=== PATIENT | female | born 1940 | race Caucasian/White ===

== ENCOUNTER 2024-01-11 10:03 | Outpatient (AMB) | payer MEDICARE, OTHER, SELFPAY ==
--- NOTE | 2024-01-11 10:21 | A.OFFPC_ITS ---
Vital Signs 01/11/24 10:38 01/11/24 11:36 Height 4 ft 7.12 in Weight 115 lb 6 oz BMI 26.7 BP 118/56 L 140/58 H Blood Pressure Location Lt brachial Lt brachial Position Sitting Sitting Respiration 16 Pulse 70 Pulse Source Pulse Oximeter Temp 98.6 F Temp Source Oral Pulse Oximetry (%) 95 Oxygen Delivery Method Room Air Intake Visit Reasons: Establish Care transfer from [facility] Allergies Penicillins [PENICILLINS] Allergy (Unknown, Unverified 04/09/20 19:53) SWELLING Medication List - Last Reconciled 01/11/24 by BORIS Abreu acetaminophen ER (Tylenol 8 Hour) 650 mg PO Q8H amlodipine 5 mg PO DAILY atorvastatin 40 mg PO BEDTIME calcium carbonate 600 mg PO DAILY carisoprodol 350 mg PO BID PRN cholecalciferol (vitamin D3) 50 mcg PO DAILY furosemide 20 mg PO BID furosemide mg PO mupirocin 2% 1 appl topical BID-TID nifedipine ER mg PO oxycodone 10 mg PO QID PRN oxycodone ER (OxyContin) 20 mg PO BID Tobacco use date assessed: 01/11/24 Fall risk assessment: No Falls in past year Last assessed Fall Risk: 01/11/24 Dental Screening Dental Screen Date: 01/11/24 Did you have a dental visit in the last 12 months?: No Did you have a dental problem in the last 6 months where you did not have access to dental care?: No Was dental information given to patient?: Patient has dentist HPI HPI Comments History of Present Illness Details This is an 82-year-old female with a past medical history of ischemic stroke and recurrent TIAs, peripheral vascular disease, chronic back pain on opiates, skin cancer and 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 She is here today with a friend, Mela. Her healthcare proxy, Marie, is on the phone. They are here to have forms filled out for the [facility]. She has a tentative mov e-in scheduled for mid January. When she is settled they would like orders for PT/OT. She ambulates with a walker, but today she is in a wheelchair. She is deconditioned. She has multiple chronic joint pains and osteoarthritis. She was hospitalized in October this year because of left knee pain. There was initial concern for failure of prosthesis/infection, but both were ruled out. She was evaluated by Orthopedics and prescribed a steroid Dosepak which helped with pain while she was taking it. Cardiovascular-followed by Dr. Yin. Patient hospitalized 06/17/2022 after presenting with syncope and EKG evidence of complete heart block with ventricular escape. She is status post dual-chamber pacemaker implantation. She had an echocardiogram that demonstrated reduced left ventricular systolic function (40-45%), akinetic mid and distal inferior septal, distal inferior and distal inferolateral and distal anteroseptal segments. She had a stress test in 09/12/2022. Peripheral vascular disease-chronic lower extremity edema. Followed by Dr. Medrano. Currently stable. She has a history of basal and squamous cell carcinoma. She is followed by [facility], Dr. Robert.. Her electronic video games servicer did not think it was a good idea to remove squamous cell lesions on her lower extremities because of skin atrophy and chronic venous insufficiency. Chronic pain is managed by Dr. Baugh. She has a history of multiple joint replacement surgeries. She has a compression fracture from an old injury. She is on opioids chronically. She was previously on gabapentin which was discontinued due to causing memory issues. She has carpal tunnel syndrome. She was tried on Lyrica but did not notice much of a difference on the medication, and it was discontinued. [facility] Medical History (Updated 01/11/24 @ 13:19 by BORIS Abreu) Coronary artery disease Osteoporosis PVD (peripheral vascular disease) PMR (polymyalgia rheumatica) Pacemaker Chronic neck pain Liver cyst Hyperlipidemia LDL goal <70 History of recurrent TIAs History of [place] (myocardial infarction) History of ischemic stroke History of anemia Compression fracture of spine Chronic pain syndrome Candidal intertrigo SCCA (squamous cell carcinoma) of skin BCC (basal cell carcinoma of skin) AV block, 3rd degree Surgical History (Updated 01/11/24 @ 11:55 by BORIS Abreu) History of elbow surgery History of bunionectomy S/p bilateral shoulder joint replacement History of left hip replacement History of bilateral knee replacement Social History Housing: [facility] Patient Tobacco Use Status: Never used Tobacco e-Cigarette/Vaping Use: Never Used Second Hand Smoke Exposure: Yes service: No Current occupational status: retired Cognitive needs: No Hearing needs: No Vision needs: No Questionnaire PHQ-9 Over the last 2 weeks, how often have you been bothered by any of the following problems? 1. Little interest or pleasure in doing things: not at all 2. Feeling down, depressed, or hopeless: not at all 3. Trouble falling or staying asleep, or sleeping too much: not at all 4. Feeling tired or having little energy: not at all 5. Poor appetite or overeating: not at all 6. Feeling bad about yourself - or that you are a failure or have let yourself or your family down: not at all 7. Trouble concentrating on things, such as reading the newspaper or watching television: not at all 8. Moving or speaking so slowly that other people could have noticed. Or the opposite - being so fidgety or restless that you have been moving around a lot more than usual: not at all 9. Thoughts that you would be better off or of hurting yourself in some way: not at all Total score: 0 Depression Screening Interpretation: Negative Depression Screening Done: Yes 83919 - PHQ-9 Billing: Yes Source: Developed by Drs. Cooper Oreilly, Alisia Armenta, Jose Juan Bustillo and colleagues, with an educational nella from [email or web address]. Thrive Questionnaire Date Thrive assessed: 01/11/24 I am a: Patient What is your living situation today?: I have a steady place to live Within the past 12 months, did the food you bought not last and you didn't have the money to get more?: Never true Within the past 12 months, did you worry whether your food would run out before you got money to buy more?: Never true Do you have trouble paying for medicines?: No Do you have trouble getting transportation to medical appointments?: No Do you have trouble paying your heating and electricity bill?: No Do you have trouble taking care of your child, family member or friend?: No Do you have trouble with day-to-day activities such as bathing, preparing meals, shopping, managing finances, etc.?: No Are you currently unemployed and looking for a job?: No Are you interested in more education?: No Please select the resources that you would like help with: None Currently or been in a relationship where the following occur: no concerns reported THRIVE Score: 0 AUDIT C Alcohol Use Questionnaire (AUDIT-C) 1. How often do you have a drink containing alcohol?: Never 3. How often do you have six or more drinks on one occasion?: Never Total Score: 0 HOLLI-7 AMB Questionnaire HOLLI-7 Date HOLLI - 7 assessed: 01/11/24 Feeling nervous, anxious, or on edge: 0 = Not at all Not being able to stop or control worryin = Not at all Worrying too much about different things: 0 = Not at all Trouble relaxin = Not at all Being so restless that it is hard to sit still: 0 = Not at all Becoming easily annoyed or irritable: 0 = Not at all Feeling afraid as if something awful might happen: 0 = Not at all Total HOLLI-7 score (0-4 normal; 5-9 mild; 10-14 moderate; 15-21 severe): 0 Source: Developed by Drs. Cooper Oreilly, Alisia Armenta, Jose Juan Bustillo and colleagues, with an educational nella from [email or web address]. HOLLI-7 Assessment Billing HOLLI-7 Assessment Tool: HOLLI-7 Assessment 26296 Review of Systems Const Details: Constitutional: No fever or chills. Neurologic: No memory problems or history of dementia Psychiatric: No depression or anxiety. No SI/HI. Physical exam (Primary Care) Vital Signs: Last Vital Signs Temp 98.6 F 01/11/24 10:38 Pulse 70 01/11/24 10:38 Resp 16 01/11/24 10:38 BP 118/56 L 01/11/24 10:38 Pulse Ox 95 01/11/24 10:38 Oxygen Delivery Method Room Air 01/11/24 10:38 BMI result Body Mass Index 32.6 Tobacco/Smoking Status: Tobacco use Status Tobacco use date assessed 01/11/24 01/11/24 10:44 Patient Tobacco Use Status Never used Tobacco 01/11/24 10:44 e-Cigarette/Vaping Use Never Used 01/11/24 10:44 PHQ-9: PHQ-9 Score PHQ-9: Total score 0 01/11/24 10:59 Depression Screening Interpretation: Negative Thrive Assessment: Date of Thrive Assessment Date Thrive assessed 01/11/24 01/11/24 10:59 Currently or been in a relationship where the following occur: no concerns reported Const Other: Constitutional: Alert, in no distress. Respiratory: Clear to auscultation. Cardiovascular: S1 S2 regular. Psychiatric: Normal mood and affect Assessment and Plan Assessment & Plan (1) PVD (peripheral vascular disease): Code(s): I73.9 - Peripheral vascular disease, unspecified (2) Hyperlipidemia LDL goal <70: Code(s): E78.5 - Hyperlipidemia, unspecified (3) Pacemaker: Code(s): Z95.0 - Presence of cardiac pacemaker (4) SCCA (squamous cell carcinoma) of skin: Code(s): C44.92 - Squamous cell carcinoma of skin, unspecified (5) Chronic pain syndrome: Code(s): G89.4 - Chronic pain syndrome (6) Coronary artery disease: Code(s): I25.10 - Atherosclerotic heart disease of [place] coronary artery without angina pectoris Qualifiers: Coronary Disease-Associated Artery/Lesion type: [place] artery [place] vs. transplanted heart: [place] heart Associated angina: without angina Qualified Code(s): I25.10 - Atherosclerotic heart disease of [place] coronary artery without angina pectoris (7) Osteoarthritis involving multiple joints on both sides of body: Code(s): M15.9 - Polyosteoarthritis, unspecified Plan In summary this is a pleasant 83-year-old female with a complex past medical history who presented to transfer from [facility] primary care. She is currently stable on her medications. She is followed closely by her specialists including Cardiology and vascular surgery. She will continue her current medications. Dermatology has not recommended removal of cancerous lesions on her lower extremities due to risk of complications because of her comorbidities. I completed the paperwork for the [facility] and retained a copy for the office today and provided the original to the patient. They will contact me for a referral for home PT/OT when she is settled there. She has a follow up appointment scheduled already in April with me. If any problems arise prior to that she will contact the office sooner for an appointment. Coding Level of Care Code Est Pt Level 5 (63162) Complex EM visit Add On G2211 Diagnoses PVD (peripheral vascular disease) I73.9 Hyperlipidemia LDL goal <70 E78.5 Pacemaker Z95.0 SCCA (squamous cell carcinoma) of skin C44.92 Chronic pain syndrome G89.4 Coronary artery disease involving [place] coronary artery of [place] heart without angina pectoris I25.10 Coronary Disease-Associated Artery/Lesion type: [place] artery [place] vs. transplanted heart: [place] heart Associated angina: without angina Osteoarthritis involving multiple joints on both sides of body M15.9 Additional Codes HOLLI-7 Assessment Billing - HOLLI-7 Assessment Tool: HOLLI-7 Assessment 28874 ([id number])
[2024-01-11 10:38] VITALS: BP 118/56; PULSE 70; RESP 16; TEMP 37; O2SAT 95; BMI 26.7
[2024-01-11 11:36] VITALS: BP 140/58
== END 2024-01-11 11:43 | disposition home or self-care (01) ==
PROVIDERS: PCP Physician Assistant Medical; Visit Provider Physician Assistant Medical
DX: E78.5 Hyperlipidemia, unspecified (principal); I73.9 Peripheral vascular disease, unspecified; Z95.0 Presence of cardiac pacemaker; C44.92 Squamous cell carcinoma of skin, unspecified; G89.4 Chronic pain syndrome; I25.10 Atherosclerotic heart disease of native coronary artery without angina pectoris; M15.9 Polyosteoarthritis, unspecified
CPT/HCPCS: 99215; G2211

== ENCOUNTER 2024-03-21 08:49 | Outpatient (AMB) | payer MEDICARE, OTHER, SELFPAY ==
--- NOTE | 2024-03-21 08:52 | MHC.PC.OV ---
Vital Signs 03/21/24 09:00 Height 4 ft 8.3 in Weight 112 lb 6 oz BMI 24.9 BP 118/72 Blood Pressure Location Lt brachial Position Sitting Respiration 14 Pulse 88 Pulse Source Pulse Oximeter Pulse Oximetry (%) 97 Oxygen Delivery Method Room Air Intake Visit Reasons: Pressure sore on buttocks & updated referral pt/ot Intake Note: patient is here for sore on buttocks and updated referrals. 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 She is here today with a friend, Mela. Her healthcare proxy, Marie, is on the phone for part of the visit. She has pressure ulcers on the right and left gluteal areas for the past 4 weeks. They are applying an OTC Zinc oxide. 03/15/2024 she was using a rope device to open her room door and got caught in it. It cut her right arm in two places[facility] but Marie is very well versed in Mrs. Hunt's care, and knew they would not be stitched due to poor skin integrity and nature of the wounds. She has been applying triple abx ointment and a xeroform dressing to each every other day, but they are starting to heal. She was previously followed by wound care for lower extremity wounds, but Marie says that it took them 6 months to heal, and they went through many types of dressings and never tried Xeroform which ended up working best. She [facility]. She provided the contact number. They will do OT/PT at [facility] for the patient. She is deconditioned. She is a fall risk. She has osteoarthritis of multiple sites. She fell a few weeks ago but had no major injuries. She is wheelchair-bound. She does not drive. Cardiovascular-followed by Dr. Yin. Patient hospitalized 06/17/2022 after presenting with syncope and EKG evidence of complete heart block with ventricular escape. She is status post dual-chamber pacemaker implantation. She had an echocardiogram that demonstrated reduced left ventricular systolic function (40-45%), akinetic mid and distal inferior septal, distal inferior and distal inferolateral and distal anteroseptal segments. She had a stress test in 09/12/2022. Peripheral vascular disease-chronic lower extremity edema. Followed by Dr. Medrano. Currently stable. She has a history of basal and squamous cell carcinoma. She is followed by [facility], Dr. Robert. Chronic pain is managed by Dr. Baugh. She has a history of multiple joint replacement surgeries. She has a compression fracture from an old injury. She is on opioids chronically. She was previously on gabapentin which was discontinued due to causing memory issues. She has carpal tunnel syndrome. She was tried on Lyrica but did not notice much of a difference on the medication, and it was discontinued. ROS: Constitutional: No fevers or chills Respiratory: No shortness of breath Cardiovascular: No chest pain Skin: see HPI Physical exam: Constitutional: Alert, in no distress. Head: Normocephalic. Neck: Supple, Full range of motion. No lymphadenopathy. Respiratory: Clear to auscultation. Cardiovascular: S1 S2 regular. No murmurs. Skin: 2.5 cm half stephenson shaped would with flap of avulsed skin in place on the right forearm (improved appearance from earlier pictures Mela showed me on her cell phone). Approximately 5.5 cm x 1.7 cm open wound on the right upper arm. Wounds are clean with no surrounding erythema, edema, calor or discharge. There is a stage I pressure ulcer on either side of the gluteal cleft. There are two small, shallow stage II areas within the ulcer on the right measuring approximately 1 cm. [facility] Medical History (Updated 03/22/24 @ 11:35 by BORIS Abreu) Physical deconditioning Osteoarthritis, multiple sites Pressure ulcers of skin of multiple topographic sites Risk for falls Coronary artery disease Osteoporosis PVD (peripheral vascular disease) PMR (polymyalgia rheumatica) Pacemaker Chronic neck pain Liver cyst Hyperlipidemia LDL goal <70 History of recurrent TIAs History of [place] (myocardial infarction) History of ischemic stroke History of anemia Compression fracture of spine Chronic pain syndrome Candidal intertrigo SCCA (squamous cell carcinoma) of skin BCC (basal cell carcinoma of skin) AV block, 3rd degree Surgical History (Updated 01/11/24 @ 11:55 by BORIS Abreu) History of elbow surgery History of bunionectomy S/p bilateral shoulder joint replacement History of left hip replacement History of bilateral knee replacement Social History Housing: [facility] Patient Tobacco Use Status: Never used Tobacco e-Cigarette/Vaping Use: Never Used Second Hand Smoke Exposure: Yes service: No Current occupational status: retired Cognitive needs: No Hearing needs: No Vision needs: No Questionnaire Thrive Questionnaire Date Thrive assessed: 01/11/24 HOLLI-7 AMB Questionnaire HOLLI-7 Date HOLLI - 7 assessed: 01/11/24 Source: Developed by Drs. Cooper Oreilly, Alisia Armenta, Jose Juan Bustillo and colleagues, with an educational nella from [email or web address]. Physical exam (Primary Care) Vital Signs: Last Vital Signs Pulse 88 03/21/24 09:00 Resp 14 03/21/24 09:00 BP 118/72 03/21/24 09:00 Pulse Ox 97 03/21/24 09:00 Oxygen Delivery Method Room Air 03/21/24 09:00 BMI result Body Mass Index 24.9 Tobacco/Smoking Status: Tobacco use Status Tobacco use date assessed 01/11/24 03/21/24 08:53 Patient Tobacco Use Status Never used Tobacco 03/21/24 08:53 e-Cigarette/Vaping Use Never Used 03/21/24 08:53 Thrive Assessment: Date of Thrive Assessment Date Thrive assessed 01/11/24 03/21/24 08:53 Assessment and Plan Assessment & Plan (1) Pressure ulcers of skin of multiple topographic sites: Code(s): L89.90 - Pressure ulcer of unspecified site, unspecified stage (2) Wound of right upper extremity: Code(s): S41.101A - Unspecified open wound of right upper arm, initial encounter Qualifiers: Encounter type: initial encounter Qualified Code(s): S41.101A - Unspecified open wound of right upper arm, initial encounter (3) Risk for falls: Code(s): Z91.81 - History of falling (4) Osteoarthritis, multiple sites: Code(s): M15.9 - Polyosteoarthritis, unspecified Qualifiers: Osteoarthritis type: primary Qualified Code(s): M15.0 - Primary generalized (osteo)arthritis (5) Physical deconditioning: Code(s): R53.81 - Other malaise Plan We discussed pressure ulcer treatment and prevention. She has a pressure cushion for her wheelchair. They will purchase one for her scooter, too. She is at the [facility], and they have staff check on her during the night and will request a position change since she sleeps supine. Keep ulcers clean. Keep covered with Rx Zinc oxide prescribed today. Offered referral for wound care-declined today, but accepted referral be made so if they are worsening/not healing Marie can call to schedule this. Declines wound care for UE wounds which are healing. Marie is very competent with wound dressings. Continue thin layer of bacitracin and Xeroform then gauze. Changing every other day. Monitor for signs and symptoms of infection which are reviewed today. Discussed symptoms warranting ER evaluation. Referred for PT/OT. Follow up in 3 weeks for wound checks. Orders: Referrals Wound Care Referral L89.90 - Pressure ulcer of unspecified site, unspecified stage, S41.109A - Unspecified open wound of unspecified upper arm, initial encounter [facility] Referral M15.9 - Polyosteoarthritis, unspecified, M48.50XA - Collapsed vertebra, not elsewhere classified, site unspecified, initial encounter for fracture, M81.0 - Age-related osteoporosis without current pathological fracture, R53.81 - Other malaise, Z91.81 - History of falling Medications: New zinc oxide 25% 1 appl topical BID-TID PRN 2,500 grams 2RF skin irritation Coding Level of Care Code Est Pt Level 5 (19219) Complex EM visit Add On G2211 Diagnoses Pressure ulcers of skin of multiple topographic sites L89.90 Wound of right upper extremity, initial encounter S41.101A Encounter type: initial encounter Risk for falls Z91.81 Primary osteoarthritis involving multiple joints M15.0 Osteoarthritis type: primary Physical deconditioning R53.81 Time Spent (min) 55 Comment direct patient care and chart completion
[2024-03-21 09:00] VITALS: BP 118/72; PULSE 88; RESP 14; O2SAT 97; BMI 24.9
== END 2024-03-21 10:26 | disposition home or self-care (01) ==
PROVIDERS: PCP Physician Assistant Medical; Visit Provider Physician Assistant Medical
DX: S41.101A Unspecified open wound of right upper arm, initial encounter (principal); L89.90 Pressure ulcer of unspecified site, unspecified stage; Z91.81 History of falling; M15.0 Primary generalized (osteo)arthritis; R53.81 Other malaise
CPT/HCPCS: 99215; G2211

== ENCOUNTER 2024-06-06 14:05 | Outpatient (AMB) | payer MEDICARE, OTHER, SELFPAY ==
--- NOTE | 2024-06-06 14:15 | A.OFFPC_ITS ---
Vital Signs 06/06/24 14:20 Height 4 ft 7.31 in Weight 114 lb 2 oz BMI 26.2 BP 112/60 Blood Pressure Location Lt brachial Position Sitting Pulse 93 Pulse Source Pulse Oximeter Temp 98.7 F Temp Source Oral Pulse Oximetry (%) 97 Oxygen Delivery Method Room Air Intake Visit Reasons: est care Intake Note: Follow up. Daughter in law is bringing medication list. 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 She is here today with a friend, Mela and healthcare proxy, Marie. Marie messaged earlier this week on the portal because the patient developed bilateral lower extremity redness, weeping and open sores. She has taken 4 doses of Bactrim. Marie is wrapping them with antibiotic ointment to open areas, xeroform and gauze. She changes the dressings every two days. Patient says itching is gone and legs are 70% better. Denies fevers and chills. She is compliant with Lasix. She is elevating her legs. She has a longstanding history of PVD and lower extremity edema. She is followed by Dr. Medrano. Marie says pressure ulcers on her buttocks have since healed. Using foam padding dressing and zinc oxide. She has a small red spot under her bra strap. She will start using foam dressing and zinc oxide. They continue with positional changes throughout the day and staff come into her room at night. Chronic pain is managed by Dr. Baugh, and they tell me he is in the process of ordering a hospital bed. She has a history of multiple joint replacement surgeries. She has a compression fracture from an old injury. She is on opioids chronically. She was previously on gabapentin which was discontinued due to causing memory issues. She has carpal tunnel syndrome. She was tried on Lyrica but did not notice much of a difference on the medication, and it was discontinued. She endorses tingling in both of her hands that is worse when she first wakes up. They got a note from her insurance carrier that Oxycontin will not be covered come July. The plan is to switch her to Dilaudid, and they are all concerned about potential side effects to this medication. She is also on Oxycodone 10 mg every 4-6 hours for pain. They asked if she should receive the RSV vaccine, and I do recommend this. ROS: Constitutional: No fevers or chills Respiratory: No shortness of breath Cardiovascular: No chest pain Skin: see HPI Physical exam: Constitutional: Alert, in no distress. Head: Normocephalic. Neck: Supple, Full range of motion. No lymphadenopathy. Respiratory: Clear to auscultation. Cardiovascular: S1 S2 regular. No murmurs. Skin: Venous stasis changes noted on bilateral lower extremities. There are multiple shallow sores with the largest ~1.5 cm and there are waxy plaques and flaking skin and erythema of both lower legs. The right leg appears worse than the left in terms of erythema. Bilateral 2+ lower extremity edema. No visible sores on the gluteal areas. Stage I 2 cm ulcer on the midline spine below the bra line. [facility] Medical History (Updated 06/07/24 @ 12:55 by BORIS Abreu) Bilateral lower leg cellulitis Paresthesias Physical deconditioning Osteoarthritis, multiple sites Pressure ulcers of skin of multiple topographic sites Risk for falls Coronary artery disease Osteoporosis PVD (peripheral vascular disease) PMR (polymyalgia rheumatica) Pacemaker Chronic neck pain Liver cyst Hyperlipidemia LDL goal <70 History of recurrent TIAs History of [place] (myocardial infarction) History of ischemic stroke History of anemia Compression fracture of spine Chronic pain syndrome Candidal intertrigo SCCA (squamous cell carcinoma) of skin BCC (basal cell carcinoma of skin) AV block, 3rd degree Surgical History (Updated 01/11/24 @ 11:55 by BORIS Abreu) History of elbow surgery History of bunionectomy S/p bilateral shoulder joint replacement History of left hip replacement History of bilateral knee replacement Social History Housing: [facility] Patient Tobacco Use Status: Never used Tobacco e-Cigarette/Vaping Use: Never Used Second Hand Smoke Exposure: Yes service: No Current occupational status: retired Cognitive needs: No Hearing needs: No Vision needs: No Questionnaire PHQ-9 Over the last 2 weeks, how often have you been bothered by any of the following problems? 2. Feeling down, depressed, or hopeless: not at all Source: Developed by Drs. Cooper Oreilly, Alisia Armenta, Jose Juan Bustillo and colleagues, with an educational nella from [employer]. Thrive Questionnaire Date Thrive assessed: 01/11/24 I am a: Patient What is your living situation today?: I choose not to answer this question Within the past 12 months, did the food you bought not last and you didn't have the money to get more?: I choose not to answer this question Within the past 12 months, did you worry whether your food would run out before you got money to buy more?: I choose not to answer this question Do you have trouble paying for medicines?: I choose not to answer this question Do you have trouble getting transportation to medical appointments?: I choose not to answer this question Do you have trouble paying your heating and electricity bill?: I choose not to answer this question Do you have trouble taking care of your child, family member or friend?: I choose not to answer this question Do you have trouble with day-to-day activities such as bathing, preparing meals, shopping, managing finances, etc.?: I choose not to answer this question Are you currently unemployed and looking for a job?: I choose not to answer this question Are you interested in more education?: I choose not to answer this question Please select the resources that you would like help with: None Currently or been in a relationship where the following occur: No concerns reported THRIVE Score: 0 AUDIT C Alcohol Use Questionnaire (AUDIT-C) 1. How often do you have a drink containing alcohol?: Never Total Score: 0 HOLLI-7 AMB Questionnaire HOLLI-7 Date HOLLI - 7 assessed: 01/11/24 Feeling nervous, anxious, or on edge: 0 = Not at all Not being able to stop or control worryin = Not at all Worrying too much about different things: 0 = Not at all Trouble relaxin = Not at all Being so restless that it is hard to sit still: 0 = Not at all Becoming easily annoyed or irritable: 0 = Not at all Feeling afraid as if something awful might happen: 0 = Not at all Total HOLLI-7 score (0-4 normal; 5-9 mild; 10-14 moderate; 15-21 severe): 0 Source: Developed by Drs. Cooper Oreilly, Alisia Armenta, Jose Juan Bustillo and colleagues, with an educational nella from [employer]. Physical exam (Primary Care) Vital Signs: Last Vital Signs Temp 98.7 F 06/06/24 14:20 Pulse 93 06/06/24 14:20 BP 112/60 06/06/24 14:20 Pulse Ox 97 06/06/24 14:20 Oxygen Delivery Method Room Air 06/06/24 14:20 BMI result Body Mass Index 26.2 Tobacco/Smoking Status: Tobacco use Status Tobacco use date assessed 01/11/24 06/06/24 14:19 Patient Tobacco Use Status Never used Tobacco 06/06/24 14:19 e-Cigarette/Vaping Use Never Used 06/06/24 14:19 Thrive Assessment: Date of Thrive Assessment Date Thrive assessed 01/11/24 06/06/24 14:19 Currently or been in a relationship where the following occur: No concerns reported Coding Level of Care Code Est Pt Level 5 (11101) Complex EM visit Add On G2211 Diagnoses Bilateral lower leg cellulitis L03.116; L03.115 PVD (peripheral vascular disease) I73.9 Primary osteoarthritis involving multiple joints M15.0 Osteoarthritis type: primary Time Spent (min) 56 Comment direct patient care, completing documentation Assessment & Plan Assessment & Plan (1) Bilateral lower leg cellulitis: Code(s): L03.116 - Cellulitis of left lower limb; L03.115 - Cellulitis of right lower limb Category: Medical (2) PVD (peripheral vascular disease): Code(s): I73.9 - Peripheral vascular disease, unspecified Category: Medical (3) Osteoarthritis, multiple sites: Code(s): M15.9 - Polyosteoarthritis, unspecified Category: Medical Qualifiers: Osteoarthritis type: primary Qualified Code(s): M15.0 - Primary generalized (osteo)arthritis Plan Patient afebrile today. Appears nontoxic. Will check CBC. Interval improvement on Bactrim. Patient instructed to finish full course. Continue dressing changes with antibiotic ointment, xeroform, gauze and coban wrap. Declines referral to wound care. 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 Continue to elevate legs. Conitnxavier Lasix. Warning signs warranting ER evaluation reviewed. It is difficult to her to come for appointments due to chronic pain and deconditioning so they will send updated photos over the patient portal on Monday. Paresthesias in hands likely due to CTS or cervical radiculopathy, but I will check labs for underlying issues. It is medically necessary for the patient to remain on her current regimen for chronic pain. I think it would pose significant and unnecessary risk to switch the patient off of this given her age, fall risk and comorbidities. I will try to submit a letter of appeal to her insurnace. Orders: Orders Comprehensive Met. Panel 06/06/24 R20.2 - Paresthesia of skin Vitamin B12 and Folate 06/06/24 R20.2 - Paresthesia of skin Hemoglobin A1c 06/06/24 E11.9 - Type 2 diabetes mellitus without complications, R20.2 - Paresthesia of skin Complete Blood Count no Diff 06/06/24 R20.2 - Paresthesia of skin TSH reflex Free T4 06/06/24 R20.2 - Paresthesia of skin Medications: New elastic bandage (Coban Self-Adherent Wrap) As directed 18 ea 4RF bismuth tribrom-petrolatum,wh 5 X 9 (Xeroform) As directed 72 ea 2RF gauze bandage (Rolled Gauze) As directed 4 ea 3RF
[2024-06-06 14:20] VITALS: BP 112/60; PULSE 93; TEMP 37.1; O2SAT 97; BMI 26.2
== END 2024-06-06 16:07 | disposition home or self-care (01) ==
PROVIDERS: PCP Physician Assistant Medical; Visit Provider Physician Assistant Medical
DX: L03.116 Cellulitis of left lower limb (principal); L03.115 Cellulitis of right lower limb; I73.9 Peripheral vascular disease, unspecified; M15.0 Primary generalized (osteo)arthritis

== ENCOUNTER → 2024-06-06 14:05 | Outpatient (BNVA) | payer MEDICARE, OTHER, SELFPAY | PROVIDERS: PCP Physician Assistant Medical; Visit Provider Physician Assistant Medical ==

== ENCOUNTER 2024-06-06 15:54 | Outpatient (REF) | payer MEDICARE, OTHER, SELFPAY ==
[2024-06-06 17:59] LABS: Estimated Average Glucose 108 mg/dL; Hematocrit 37.4 % (37.0-47.0); Hemoglobin 11.8 g/dl (12.0-16.0); Hemoglobin A1C 109.7972 umol/L; Hemoglobin A1c % 5.4 % (<6.0); Mean Corpuscular HGB Conc 31.6 g/dl (31.0-35.0); Mean Corpuscular Hemoglobin 27.4 pg (27.0-33.0); Mean Corpuscular Volume 86.8 fL (80.0-98.0); Mean Platelet Volume 11.4 fL (9.4-12.3); Platelet Count 232 X10*3/uL (160-400); Red Blood Count 4.31 X10*6/uL (4.20-5.50); Red Cell Distribution Width 14.9 % (11.0-16.0); White Blood Count 9.1 X10*3/uL (4.8-10.8)
[2024-06-06 18:48] LABS: Alanine Aminotransferase 15 U/L (0-31); Alkaline Phosphatase 98 U/L (39-117); Anion Gap 15 (12-20); Aspartate Amino Transferase 37 U/L (5-31); Bilirubin Total 0.2 mg/dL (0.0-1.0); Blood Urea Nitrogen 13 mg/dL (9-16); Calcium 9.2 mg/dL (8.4-10.2); Carbon Dioxide 30 mmol/L (22-29); Chloride 100 mmol/L (96-108); Estimated Glomerular Filt Rate > 60; Glucose Random 95 mg/dL (60-115); Potassium 4.1 mmol/L (3.3-5.1); Sodium 141 mmol/L (135-145); Total Protein 7.3 g/dL (6.5-8.0)
[2024-06-06 18:50] LABS: Folate 11.8 ng/mL (> or = 4.0); Vitamin B12 422 pg/mL (200-900)
[2024-06-06 18:57] LABS: TSH reflex Free T4 3.28 uIU/mL (0.32-4.0)
== END 2024-06-06 15:55 | disposition home or self-care (01) ==
LOC: HO.WFDLDS 15:54
PROVIDERS: Visit Provider Physician Assistant Medical
DX: L03.116 Cellulitis of left lower limb (principal); L03.115 Cellulitis of right lower limb; I73.9 Peripheral vascular disease, unspecified; M15.0 Primary generalized (osteo)arthritis; E11.9 Type 2 diabetes mellitus without complications; R20.2 Paresthesia of skin
CPT/HCPCS: 36415; 80053; 82607; 82746; 83036; 84443; 85027; 99212

== ENCOUNTER 2024-08-05 11:54 | Outpatient (AMB) | payer MEDICARE, OTHER, SELFPAY ==
--- NOTE | 2024-08-05 12:16 | A.OFFPC_ITS ---
Intake Visit Reasons: fernandes [facility]df[facility] Intake Note: Hospital follow up Cardiac Cath Technician Required: No Allergies Penicillins [PENICILLINS] Allergy (Unknown, Verified 08/05/24 12:16) SWELLING doxycycline Adverse Reaction (Intermediate, Verified 08/05/24 12:16) Vomiting Tobacco use date assessed: 01/11/24 Dental Screening Dental Screen Date: 01/11/24 [facility] Medical History (Updated 06/07/24 @ 12:55 by BORIS Abreu) Bilateral lower leg cellulitis Paresthesias Physical deconditioning Osteoarthritis, multiple sites Pressure ulcers of skin of multiple topographic sites Risk for falls Coronary artery disease Osteoporosis PVD (peripheral vascular disease) PMR (polymyalgia rheumatica) Pacemaker Chronic neck pain Liver cyst Hyperlipidemia LDL goal <70 History of recurrent TIAs History of [place] (myocardial infarction) History of ischemic stroke History of anemia Compression fracture of spine Chronic pain syndrome Candidal intertrigo SCCA (squamous cell carcinoma) of skin BCC (basal cell carcinoma of skin) AV block, 3rd degree Surgical History (Updated 01/11/24 @ 11:55 by BORIS Abreu) History of elbow surgery History of bunionectomy S/p bilateral shoulder joint replacement History of left hip replacement History of bilateral knee replacement Social History [facility] Patient Tobacco Use Status: Never used Tobacco e-Cigarette/Vaping Use: Never Used Second Hand Smoke Exposure: Yes service: No Current occupational status: retired Cognitive needs: No Hearing needs: No Vision needs: No Questionnaire Thrive Questionnaire Date Thrive assessed: 08/02/24 I am a: Parent/Caregiver What is your living situation today?: I have a steady place to live Within the past 12 months, did the food you bought not last and you didn't have the money to get more?: I choose not to answer this question Within the past 12 months, did you worry whether your food would run out before you got money to buy more?: I choose not to answer this question Do you have trouble paying for medicines?: I choose not to answer this question Do you have trouble getting transportation to medical appointments?: I choose not to answer this question Do you have trouble paying your heating and electricity bill?: I choose not to answer this question Do you have trouble taking care of your child, family member or friend?: I choose not to answer this question Do you have trouble with day-to-day activities such as bathing, preparing meals, shopping, managing finances, etc.?: I choose not to answer this question Are you currently unemployed and looking for a job?: I choose not to answer this question Are you interested in more education?: I choose not to answer this question Please select the resources that you would like help with: None Currently or been in a relationship where the following occur: I choose not to answer THRIVE Score: 0 AUDIT C Alcohol Use Questionnaire (AUDIT-C) 1. How often do you have a drink containing alcohol?: Monthly or less 2. How many drinks containing alcohol do you have on a typical day when you are drinking?: 1 or 2 3. How often do you have six or more drinks on one occasion?: Never Total Score: 1 HOLLI-7 AMB Questionnaire HOLLI-7 Date HOLLI - 7 assessed: 01/11/24 Feeling nervous, anxious, or on edge: 0 = Not at all Not being able to stop or control worryin = Not at all Worrying too much about different things: 0 = Not at all Trouble relaxin = Not at all Being so restless that it is hard to sit still: 0 = Not at all Becoming easily annoyed or irritable: 0 = Not at all Feeling afraid as if something awful might happen: 0 = Not at all Total HOLLI-7 score (0-4 normal; 5-9 mild; 10-14 moderate; 15-21 severe): 0 Source: Developed by Drs. Cooper Oreilly, Alisia Armenta, Jose Juan Bustillo and colleagues, with an educational nella from [employer]. Physical exam (Primary Care) Tobacco/Smoking Status: Tobacco use Status Tobacco use date assessed 01/11/24 06/06/24 14:19 Patient Tobacco Use Status Never used Tobacco 06/06/24 14:19 e-Cigarette/Vaping Use Never Used 06/06/24 14:19 Thrive Assessment: Date of Thrive Assessment Date Thrive assessed 08/02/24 08/02/24 16:03 Currently or been in a relationship where the following occur: I choose not to answer Coding
--- NOTE | 2024-08-05 12:21 | MHC.PC.OV ---
Vital Signs 08/05/24 12:36 Height 4 ft 7.31 in Weight 110 lb 6 oz BMI 25.4 BP 106/54 L Blood Pressure Location Rt brachial Position Sitting Pulse 82 Pulse Source Pulse Oximeter Pulse Oximetry (%) 96 Oxygen Delivery Method Room Air Intake Visit Reasons: fernandes hdfu Intake Note: Hospital follow up Allergies Penicillins [PENICILLINS] Allergy (Unknown, Verified 08/05/24 12:34) SWELLING doxycycline Adverse Reaction (Intermediate, Verified 08/05/24 12:34) Vomiting Tobacco use date assessed: 01/11/24 Dental Screening Dental Screen Date: 01/11/24 HPI HPI Comments History of Present Illness Details This is an 84-year-old female with a past medical history of ischemic stroke and recurrent TIAs, peripheral vascular disease, chronic back pain on opiates, skin cancer and 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 She is here with her healthcare proxy, Marie. Hospital discharge summary and notes not available to me today. I did review the emergency department note from [facility] dated 07/13/2024. The patient presented after a fall. She had had twinges of chest pain for a couple of days before but no chest discomfort or pain at the time of presentation. It was reported she was trying to put her shoe on and lost her balance and fell. She was transferred to [facility] for concern of NSTEMI. She was down for about 2 hours before someone in the assisted living found her. She was not in reach of her phone or the line she can pull by her bedside for help. Troponin was elevated at 428. Initial workup found no acute intracranial abnormality or fractures. CK was not significantly elevated. They are unclear today about whether or not she did have an NSTEMI. She was discharged to [place] and is back at her assisted living now. They have an appointment on 09/03/2023 with Cardiology, Anuel Almazan. Dr. Heard is her restaurant associate. Marie mentions that she had a CT scan that showed an area in her lower spine that ?lit up. ? She has chronic lower back issues and a compression fracture. She has had multiple injections in her lower back. She said they discussed getting an MRI, but the MRI machine at [place] was not compatible with her pacemaker. Marie tells me that recently saw her sewer separation designer. For her lower extremity dermatitis and recurrent cellulitis they advised using triamcinolone when legs get itchy or inflamed. She has required antibiotics to treat cellulitis, and for the past 2 days legs have looked red again. Marie is requesting antibiotics. She does the dressing changes. She elevates her legs. She also has VNA services right now. No fevers or chills. She has a longstanding history of PVD and lower extremity edema. She is followed by Dr. Medrano. She has chronic pressure ulcers on her buttocks that are treated with foam padding and zinc oxide. She is very frail and bony. She was in a hospital bed with an air mattress during hospitalization which was extremely beneficial, and they are requesting we start the process to get 1 from the insurance. She also needs orders for speech therapy and an incentive spirometer. Due to frailty and chronic medical conditions she has a soft voice and difficulty getting her words out sometimes. She is easily fatigued when talking. Chronic pain is managed by Dr. Baugh who also recommended a hospital bed. She has a history of multiple joint replacement surgeries. She has a compression fracture from an old injury. She is on opioids chronically. She was previously on gabapentin which was discontinued due to causing memory issues. She has carpal tunnel syndrome. She was tried on Lyrica but did not notice much of a difference on the medication, and it was discontinued. I wrote her a letter of appeal to her insurance company because they were going to stop covering her OxyContin, and they have continued to cover it. She is also on Oxycodone 10 mg every 4-6 hours for pain. Marie was asking if her dose of atorvastatin should be increased. She does not have a recent lipid profile with us here. We will send the order to [facility] to do a home draw. She also needs orders for the Xeroform 1 x 8, 3 x 3 and 4 by for silicone foam dressings, Eucerin advanced healing and incentive spirometer sent to [facility]. ROS: Constitutional: +weight loss with hospitalization, but she gained 5 lb back. No fevers or chills. Respiratory: No cough. Cardiovascular: No chest pain or palpitations. Chronic lower extremity edema. Gastrointestinal: No nausea, vomiting or abdominal pain Genitourinary: No dysuria, hematuria, urinary frequency. Neurologic: No headache, dizziness, syncope Musculoskeletal: chronic pain Skin: see HPI Physical exam: Constitutional: Alert, in no distress. In wheelchair. Head: Normocephalic. Neck: Supple, Full range of motion. No lymphadenopathy. Respiratory: Clear to auscultation. Cardiovascular: S1 S2 regular. No murmurs. Skin: Venous stasis changes noted on bilateral lower extremities. There are 2 small fissures on the anterior right camejo. There is no discharge from the fissures. There are waxy plaques and flaking skin and erythema of both lower legs. Erythema is most notable on the right lower leg near the ankle. Bilateral 2+ lower extremity edema. [facility] Medical History (Updated 08/06/24 @ 12:25 by BORIS Abreu) Fall Hospital discharge follow-up Bilateral lower leg cellulitis Paresthesias Physical deconditioning Osteoarthritis, multiple sites Pressure ulcers of skin of multiple topographic sites Risk for falls Coronary artery disease Osteoporosis PVD (peripheral vascular disease) PMR (polymyalgia rheumatica) Pacemaker Chronic neck pain Liver cyst Hyperlipidemia LDL goal <70 History of recurrent TIAs History of FL (myocardial infarction) History of ischemic stroke History of anemia Compression fracture of spine Chronic pain syndrome Candidal intertrigo SCCA (squamous cell carcinoma) of skin BCC (basal cell carcinoma of skin) AV block, 3rd degree Surgical History (Updated 01/11/24 @ 11:55 by BORIS Abreu) History of elbow surgery History of bunionectomy S/p bilateral shoulder joint replacement History of left hip replacement History of bilateral knee replacement Social History [facility] Patient Tobacco Use Status: Never used Tobacco e-Cigarette/Vaping Use: Never Used Second Hand Smoke Exposure: Yes service: No Current occupational status: retired Cognitive needs: No Hearing needs: No Vision needs: No Questionnaire Thrive Questionnaire Date Thrive assessed: 08/02/24 I am a: Parent/Caregiver What is your living situation today?: I have a steady place to live Within the past 12 months, did the food you bought not last and you didn't have the money to get more?: I choose not to answer this question Within the past 12 months, did you worry whether your food would run out before you got money to buy more?: I choose not to answer this question Do you have trouble paying for medicines?: I choose not to answer this question Do you have trouble getting transportation to medical appointments?: I choose not to answer this question Do you have trouble paying your heating and electricity bill?: I choose not to answer this question Do you have trouble taking care of your child, family member or friend?: I choose not to answer this question Do you have trouble with day-to-day activities such as bathing, preparing meals, shopping, managing finances, etc.?: I choose not to answer this question Are you currently unemployed and looking for a job?: I choose not to answer this question Are you interested in more education?: I choose not to answer this question Please select the resources that you would like help with: None Currently or been in a relationship where the following occur: I choose not to answer THRIVE Score: 0 AUDIT C Alcohol Use Questionnaire (AUDIT-C) 1. How often do you have a drink containing alcohol?: Monthly or less 2. How many drinks containing alcohol do you have on a typical day when you are drinking?: 1 or 2 3. How often do you have six or more drinks on one occasion?: Never Total Score: 1 HOLLI-7 AMB Questionnaire HOLLI-7 Date HOLLI - 7 assessed: 01/11/24 Feeling nervous, anxious, or on edge: 0 = Not at all Not being able to stop or control worryin = Not at all Worrying too much about different things: 0 = Not at all Trouble relaxin = Not at all Being so restless that it is hard to sit still: 0 = Not at all Becoming easily annoyed or irritable: 0 = Not at all Feeling afraid as if something awful might happen: 0 = Not at all Total HOLLI-7 score (0-4 normal; 5-9 mild; 10-14 moderate; 15-21 severe): 0 Source: Developed by Drs. Cooper Oreilly, Alisia Armenta, Jose Juan Bustillo and colleagues, with an educational nella from [employer]. Physical exam (Primary Care) Vital Signs: Last Vital Signs Pulse 82 08/05/24 12:36 BP 106/54 L 08/05/24 12:36 Pulse Ox 96 08/05/24 12:36 Oxygen Delivery Method Room Air 08/05/24 12:36 BMI result Body Mass Index 25.4 Tobacco/Smoking Status: Tobacco use Status Tobacco use date assessed 01/11/24 08/05/24 12:32 Patient Tobacco Use Status Never used Tobacco 08/05/24 12:32 e-Cigarette/Vaping Use Never Used 08/05/24 12:32 Thrive Assessment: Date of Thrive Assessment Date Thrive assessed 08/02/24 08/05/24 12:32 Currently or been in a relationship where the following occur: I choose not to answer Coding Level of Care Code Est Pt Level 5 (81807) Complex EM visit Add On G2211 Diagnoses Hospital discharge follow-up Z09 Fall W19.XXXA Bilateral lower leg cellulitis L03.116; L03.115 Primary osteoarthritis involving multiple joints M15.0 Osteoarthritis type: primary Pressure ulcers of skin of multiple topographic sites L89.90 Coronary artery disease involving [place] coronary artery of [place] heart without angina pectoris I25.10 Coronary Disease-Associated Artery/Lesion type: [place] artery [place] vs. transplanted heart: [place] heart Associated angina: without angina PVD (peripheral vascular disease) I73.9 Hyperlipidemia LDL goal <70 E78.5 Time Spent (min) 70 Comment Chart review, completing documentation, direct patient care, coordinating care Assessment & Plan Assessment & Plan (1) Hospital discharge follow-up: Code(s): Z09 - Encounter for follow-up examination after completed treatment for conditions other than malignant neoplasm Category: Medical (2) Fall: Code(s): W19.XXXA - Unspecified fall, initial encounter Category: Medical (3) Bilateral lower leg cellulitis: Code(s): L03.116 - Cellulitis of left lower limb; L03.115 - Cellulitis of right lower limb Category: Medical (4) Osteoarthritis, multiple sites: Code(s): M15.9 - Polyosteoarthritis, unspecified Category: Medical Qualifiers: Osteoarthritis type: primary Qualified Code(s): M15.0 - Primary generalized (osteo)arthritis (5) Pressure ulcers of skin of multiple topographic sites: Code(s): L89.90 - Pressure ulcer of unspecified site, unspecified stage Category: Medical (6) Coronary artery disease: Code(s): I25.10 - Atherosclerotic heart disease of [place] coronary artery without angina pectoris Category: Medical Qualifiers: Coronary Disease-Associated Artery/Lesion type: [place] artery [place] vs. transplanted heart: [place] heart Associated angina: without angina Qualified Code(s): I25.10 - Atherosclerotic heart disease of [place] coronary artery without angina pectoris (7) PVD (peripheral vascular disease): Code(s): I73.9 - Peripheral vascular disease, unspecified Category: Medical (8) Hyperlipidemia LDL goal <70: Code(s): E78.5 - Hyperlipidemia, unspecified Category: Medical Plan Patient is status post hospital discharge and rehab after a mechanical fall and question of NSTEMI. She is at her baseline today other than recurrent cellulitis secondary to chronic stasis dermatitis. She is followed by Dermatology and vascular. They will apply the triamcinolone ointment per Dermatology, and I sent a 14 day course of cephalexin since short courses of antibiotics have not adequately treated infection in the past. Side effects reviewed. She will have a probiotic with this and take it with food. Warning signs warranting ER evaluation reviewed. She has follow up scheduled with Cardiology. Marie will contact them to see if she needs to be seen sooner, but she believes the appointment on September 03 is the hospital follow up appointment. I requested the records from her hospitalization so I can review all of the diagnostics and discharge summary. I would like to see the CT scan of the lower back and we will order a follow up MRI if appropriate. May consult her distributing clerk about this finding. A hospital bed with air mattress is medically necessary given frailty, ongoing pressure ulcers and severe chronic pain. Orders submitted to DME. Submit orders for PT, OT, speech. Incentive spirometer sent to DME supplier. Wound care supplies will be sent to [facility]. Check lipid profile-[facility] we will draw at home. She has a follow up scheduled with me. Orders: Orders Lipid Panel Today E78.5 - Hyperlipidemia, unspecified Referrals [facility]Hospice Referral L89.90 - Pressure ulcer of unspecified site, unspecified stage, M15.0 - Primary generalized (osteo)arthritis, M48.50XA - Collapsed vertebra, not elsewhere classified, site unspecified, initial encounter for fracture, W19.XXXA - Unspecified fall, initial encounter Medications: New cephalexin 500 mg PO Q8H 14 days 42 caps 0RF hospital bed As directed 1 ea 0RF L89.90 - Pressure ulcer of unspecified site, unspecified stage, M15.0 - Primary generalized (osteo)arthritis, R53.81 - Other malaise, Z91.81 - History of falling silicone,dressing-foam bandage 3 X 3 As directed 10 ea 5RF emollient combination no.119 (Eucerin Advanced Repair topical cream) topically; apply to lower legs twice daily. 454 grams 5RF bismuth tribrom-petrolatum,wh 1 X 8 (Xeroform Petrolatum Dressing) As directed 400 ea 5RF silicone,dressing-foam bandage 4 X 4 As directed 120 ea 5RF miscellaneous medical supply as directed 1 ea 0RF
[2024-08-05 12:36] VITALS: BP 106/54; PULSE 82; O2SAT 96; BMI 25.4
== END 2024-08-05 13:48 | disposition home or self-care (01) ==
PROVIDERS: PCP Physician Assistant Medical; Visit Provider Physician Assistant Medical
DX: L03.116 Cellulitis of left lower limb (principal); L03.115 Cellulitis of right lower limb; Z09 Encounter for follow-up examination after completed treatment for conditions other than malignant neoplasm; I73.9 Peripheral vascular disease, unspecified; W19.XXXA Unspecified fall, initial encounter; M15.0 Primary generalized (osteo)arthritis; L89.90 Pressure ulcer of unspecified site, unspecified stage; I25.10 Atherosclerotic heart disease of native coronary artery without angina pectoris; E78.5 Hyperlipidemia, unspecified

== ENCOUNTER → 2024-08-05 11:54 | Outpatient (BNVA) | payer MEDICARE, OTHER, SELFPAY | PROVIDERS: PCP Physician Assistant Medical; Visit Provider Physician Assistant Medical | DX: Z09 Encounter for follow-up examination after completed treatment for conditions other than malignant neoplasm (principal); L03.116 Cellulitis of left lower limb; L03.115 Cellulitis of right lower limb; M15.0 Primary generalized (osteo)arthritis; L98.419 Non-pressure chronic ulcer of buttock with unspecified severity; I25.10 Atherosclerotic heart disease of native coronary artery without angina pectoris; I73.9 Peripheral vascular disease, unspecified; E78.5 Hyperlipidemia, unspecified; G89.29 Other chronic pain; M54.9 Dorsalgia, unspecified; Z86.73 Personal history of transient ischemic attack (TIA), and cerebral infarction without residual deficits; Z79.891 Long term (current) use of opiate analgesic; Z91.81 History of falling | CPT/HCPCS: 99212 ==

== ENCOUNTER 2024-09-12 14:10 | Outpatient (AMB) | payer MEDICARE, OTHER, SELFPAY ==
--- NOTE | 2024-09-12 14:13 | A.OFFPC_ITS ---
Vital Signs 09/12/24 14:17 Height 4 ft 7.31 in BMI Reason not done Patient refused/unable BP 129/57 L Blood Pressure Location Rt brachial Position Sitting Respiration 12 Pulse 74 Pulse Source Pulse Oximeter Temp 96.6 F L Temp Source Temporal Artery Scan Pulse Oximetry (%) 96 Oxygen Delivery Method Room Air Intake Visit Reasons: 30 minute complex Intake Note: follow up, les also needs to talk about paperwork for bed Hazardous Waste Material Technician Required: No Allergies Penicillins [PENICILLINS] Allergy (Unknown, Verified 09/12/24 14:13) SWELLING doxycycline Adverse Reaction (Intermediate, Verified 09/12/24 14:13) Vomiting Tobacco use date assessed: 09/12/24 Fall risk assessment: 2 + Falls in past year Last assessed Fall Risk: 09/12/24 Dental Screening Dental Screen Date: 09/12/24 Did you have a dental visit in the last 12 months?: No Did you have a dental problem in the last 6 months where you did not have access to dental care?: No Was dental information given to patient?: Patient declined HPI HPI Comments History of Present Illness Details This is an 84-year-old female with a past medical history of NSTEMI 2024, ischemic stroke and recurrent TIAs, peripheral vascular disease and recurrent cellulitis of the lower extremities, chronic back pain on opiates, skin cancer and 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 She is here with her healthcare proxy, Marie. She saw Cardiology on 09/03/2023. Dr. Heard is her field human resources manager. Confirmed NSTEMI 08/12/2024. Currently no chest pain. No plans to pursue further diagnosis or procedures at this time. The patient had lumbar and thoracic x-rays which showed mild T6 compression deformity an old L2 deformity and scoliosis. A bone scan/thoracic MRI was recommended for further evaluation to evaluate acuity of T6 compression deformity. We again discussed that MRI was not done because the machine there was not compatible with her pacemaker. Marie reports it took 3 weeks of cephalexin to clear cellulitis recently. She would like to know if I will put a prescription on file at the pharmacy so that it if it is on the weekend she does not have to take her into urgent care or the ED. Marie has extremely good insight into her care, and she does her dressing changes. She has a longstanding history of PVD and lower extremity edema. She is followed by Dr. Medrano. She has chronic pressure ulcers on her buttocks that are treated with foam padding and zinc oxide. She is very frail and bony. She was in a hospital bed with an air mattress during hospitalization which was extremely beneficial, and they have forms from [employer] for a hospital bed with air mattress. She has speech therapy. Due to frailty and chronic medical conditions she has a soft voice and difficulty getting her words out sometimes. She is easily fatigued when talking. She has been referred to ENT, but the appointment in [place] is in the fall. I referred her anew to the ENT office in [place] to see if they can see her sooner. Chronic pain is managed by Dr. Baugh who also recommended a hospital bed. She has a history of multiple joint replacement surgeries. She has a compression fracture from an old injury. She is on opioids chronically. She was previously on gabapentin which was discontinued due to causing memory issues. She has carpal tunnel syndrome. She was tried on Lyrica but did not notice much of a difference on the medication, and it was discontinued. I wrote her a letter of appeal to her insurance company because they were going to stop covering her OxyContin, and they have continued to cover it. She is also on Oxycodone 10 mg every 4-6 hours for pain. ROS: Constitutional: Denies further weight loss, fevers or chills. Respiratory: No cough. No shortness a breath. Cardiovascular: No chest pain or palpitations. Chronic lower extremity edema. Gastrointestinal: No nausea, vomiting or abdominal pain Neurologic: No headache, dizziness, syncope Musculoskeletal: chronic pain Skin: see HPI Physical exam: Constitutional: Alert, in no distress. In wheelchair. Head: Normocephalic. Neck: Supple, Full range of motion. No lymphadenopathy. Respiratory: Clear to auscultation. Cardiovascular: S1 S2 regular. No murmurs. Skin: Venous stasis changes noted on bilateral lower extremities. No open wounds, weeping or discharge today. There are waxy plaques and flaking skin and erythema of both lower legs.Bilateral 2+ lower extremity edema. There is a quarter-sized annular lesion with erythematous rough borders and central clearing on the right lateral lower leg. [facility] Medical History (Updated 08/06/24 @ 12:25 by BORIS Abreu) Fall Hospital discharge follow-up Bilateral lower leg cellulitis Paresthesias Physical deconditioning Osteoarthritis, multiple sites Pressure ulcers of skin of multiple topographic sites Risk for falls Coronary artery disease Osteoporosis PVD (peripheral vascular disease) PMR (polymyalgia rheumatica) Pacemaker Chronic neck pain Liver cyst Hyperlipidemia LDL goal <70 History of recurrent TIAs History of NE (myocardial infarction) History of ischemic stroke History of anemia Compression fracture of spine Chronic pain syndrome Candidal intertrigo SCCA (squamous cell carcinoma) of skin BCC (basal cell carcinoma of skin) AV block, 3rd degree Surgical History (Updated 01/11/24 @ 11:55 by BORIS Abreu) History of elbow surgery History of bunionectomy S/p bilateral shoulder joint replacement History of left hip replacement History of bilateral knee replacement Social History Housing: [facility] Patient Tobacco Use Status: Never used Tobacco e-Cigarette/Vaping Use: Never Used Second Hand Smoke Exposure: Yes service: No Current occupational status: retired Cognitive needs: No Hearing needs: No Vision needs: No Questionnaire PHQ-9 Over the last 2 weeks, how often have you been bothered by any of the following problems? 88449 - PHQ-9 Billing: Patient declined-do not bill Source: Developed by Drs. Cooper Oreilly, Alisia Armenta, Jose Juan Bustillo and colleagues, with an educational nella from [employer]. Thrive Questionnaire Date Thrive assessed: 09/12/24 I am a: Parent/Caregiver What is your living situation today?: I have a steady place to live Within the past 12 months, did the food you bought not last and you didn't have the money to get more?: I choose not to answer this question Within the past 12 months, did you worry whether your food would run out before you got money to buy more?: I choose not to answer this question Do you have trouble paying for medicines?: I choose not to answer this question Do you have trouble getting transportation to medical appointments?: I choose not to answer this question Do you have trouble paying your heating and electricity bill?: I choose not to answer this question Do you have trouble taking care of your child, family member or friend?: I choose not to answer this question Do you have trouble with day-to-day activities such as bathing, preparing meals, shopping, managing finances, etc.?: I choose not to answer this question Are you currently unemployed and looking for a job?: I choose not to answer this question Are you interested in more education?: I choose not to answer this question Please select the resources that you would like help with: None Currently or been in a relationship where the following occur: I choose not to answer THRIVE Score: 0 HOLLI-7 AMB Questionnaire HOLLI-7 Date HOLLI - 7 assessed: 09/12/24 Feeling nervous, anxious, or on edge: 0 = Not at all Not being able to stop or control worryin = Not at all Worrying too much about different things: 0 = Not at all Trouble relaxin = Not at all Being so restless that it is hard to sit still: 0 = Not at all Becoming easily annoyed or irritable: 0 = Not at all Feeling afraid as if something awful might happen: 0 = Not at all Total HOLLI-7 score (0-4 normal; 5-9 mild; 10-14 moderate; 15-21 severe): 0 Source: Developed by Drs. Cooper Oreilly, Alisia Armenta, Jose Juan Bustillo and colleagues, with an educational nella from [employer]. HOLLI-7 Assessment Billing HOLLI-7 Assessment Tool: HOLLI-7 Assessment 16107 Physical exam (Primary Care) Vital Signs: Last Vital Signs Temp 96.6 F L 09/12/24 14:17 Pulse 74 09/12/24 14:17 Resp 12 09/12/24 14:17 BP 129/57 L 09/12/24 14:17 Pulse Ox 96 09/12/24 14:17 Oxygen Delivery Method Room Air 09/12/24 14:17 Tobacco/Smoking Status: Tobacco use Status Tobacco use date assessed 09/12/24 09/12/24 14:15 Patient Tobacco Use Status Never used Tobacco 09/12/24 14:15 e-Cigarette/Vaping Use Never Used 09/12/24 14:15 Thrive Assessment: Date of Thrive Assessment Date Thrive assessed 09/12/24 09/12/24 14:15 Currently or been in a relationship where the following occur: I choose not to answer Coding Level of Care Code Est Pt Level 5 (96373) Complex EM visit Add On G2211 Diagnoses Hospital discharge follow-up Z09 Fall W19.XXXA Bilateral lower leg cellulitis L03.116; L03.115 Primary osteoarthritis involving multiple joints M15.0 Osteoarthritis type: primary Pressure ulcers of skin of multiple topographic sites L89.90 Coronary artery disease involving [place] coronary artery of [place] heart without angina pectoris I25.10 Associated angina: without angina Coronary Disease-Associated Artery/Lesion type: [place] artery [place] vs. transplanted heart: [place] heart PVD (peripheral vascular disease) I73.9 Hyperlipidemia LDL goal <70 E78.5 Additional Codes HOLLI-7 Assessment Billing - HOLLI-7 Assessment Tool: HOLLI-7 Assessment 12054 ([id number]) Time Spent (min) 70 Comment Direct patient care, chart review, completing documentation Assessment & Plan Assessment & Plan (1) Hospital discharge follow-up: Code(s): Z09 - Encounter for follow-up examination after completed treatment for conditions other than malignant neoplasm Category: Medical (2) Fall: Code(s): W19.XXXA - Unspecified fall, initial encounter Category: Medical (3) Bilateral lower leg cellulitis: Code(s): L03.116 - Cellulitis of left lower limb; L03.115 - Cellulitis of right lower limb Category: Medical (4) Osteoarthritis, multiple sites: Code(s): M15.9 - Polyosteoarthritis, unspecified Category: Medical Qualifiers: Osteoarthritis type: primary Qualified Code(s): M15.0 - Primary generalized (osteo)arthritis (5) Pressure ulcers of skin of multiple topographic sites: Code(s): L89.90 - Pressure ulcer of unspecified site, unspecified stage Category: Medical (6) Coronary artery disease: Code(s): I25.10 - Atherosclerotic heart disease of [place] coronary artery without angina pectoris Category: Medical Qualifiers: Associated angina: without angina Coronary Disease-Associated Artery/Lesion type: [place] artery [place] vs. transplanted heart: [place] heart Qualified Code(s): I25.10 - Atherosclerotic heart disease of [place] coronary artery without angina pectoris (7) PVD (peripheral vascular disease): Code(s): I73.9 - Peripheral vascular disease, unspecified Category: Medical (8) Hyperlipidemia LDL goal <70: Code(s): E78.5 - Hyperlipidemia, unspecified Category: Medical Plan Patient is currently stable after last admission and rehab after a mechanical fall and NSTEMI. She has a history of recurrent cellulitis of the lower extremities and stasis dermatitis. She is followed by Dermatology and vascular. They will apply the triamcinolone ointment per Dermatology, and I sent a 21 day course of cephalexin to have on file, and I instructed them to call the office for appointment or Marie has also sent pictures via patient portal with cellulitis when it recurs. She has very good insight into her care and a low threshold to bring her to the ED when needed. Her next cardiology follow up is in March. A hospital bed with air mattress is medically necessary given frailty, ongoing pressure ulcers and severe chronic pain. She is not able to reposition herself without assistance. Orders submitted to DME. Forms completed. Sent Lotrisone to apply twice a day for 2 weeks to the lesion on her leg. They will call if this does not resolve. She has a follow up scheduled with me. Medications: New clotrimazole-betamethasone 1-0.05 % 1 appl topical BID 2 weeks 45 grams 0RF atorvastatin 40 mg PO BEDTIME 90 tabs 3RF Changed From cephalexin 500 mg PO Q8H 14 days 42 caps 0RF To cephalexin 500 mg PO Q8H 21 days 63 caps 0RF From miscellaneous medical supply as directed 1 ea 0RF L89.90 - Pressure ulcer of unspecified site, unspecified stage, M15.0 - Primary generalized (osteo)arthritis, R53.81 - Other malaise, Z91.81 - History of falling To miscellaneous medical supply 1 ea as directed; 1 ea 0RF L89.90 - Pressure ulcer of unspecified site, unspecified stage, M15.0 - Primary generalized (osteo)arthritis, R53.81 - Other malaise, Z91.81 - History of falling Refilled hospital bed As directed 1 ea 0RF L89.90 - Pressure ulcer of unspecified site, unspecified stage, M15.0 - Primary generalized (osteo)arthritis, R53.81 - Other malaise, Z91.81 - History of falling
[2024-09-12 14:17] VITALS: BP 129/57; PULSE 74; RESP 12; TEMP 35.9; O2SAT 96
--- OUTSIDE RECORDS SUMMARY | 2024-09-12 15:16 | XMS_ITS | Patient Health Record ---
Author Organization [facility] Address [address] [place] [address] Care Team Providers Care Global Compensation Manager Name Role Phone Mary Santana Primary Care Provider Hasmukh Blanco Unavailable [phone] Allergies Allergen (clinical drug ingredient) Drug/Non Drug Allergy documented on EMR Reaction Allergy Type Onset Date Status doxycycline Doxycycline vomiting Drug Allergy Act cheryl Penicillin abnormal swelling Drug Allergy Active Reason For Referral No Information Medications Medication SIG (Take, Route, Frequency, Duration) Notes Start Date End Date Status oxyCODONE HCl 10 MG 1 tablet as needed O rally every 6 hrs Active Soma 350 MG 1 tablet as needed O rally Four times a day Active Atorvastatin Calcium 20 MG 1 tablet Oral ly Once a day for 30 day(s) Active Vitamin D3 Active Voltaren 1 % as directed Externally 10/27/2023 Active amLODIPine Besylate 5 MG 1 tablet Orally Once a day for 30 day(s) Active OxyCONTIN 10 MG 1 tablet Orally ever y 12 hrs Active Tylenol Active Social History Tobacco Use: Social History Observation Description Date Details (start date - stop date) Never Smoker NA - NA Tobacco Use/Smoking Question Answer Notes Are you a: nonsmoker Alcohol Screen Question Answer Notes Did you have a drink contain ing alcohol in the past year? Yes How often did you have a dri nk containing alcohol in the past year? Monthly or less (1 point) Points 1 Interpretation Negative Tobacco use other than smoking: Question Answer Notes Are you an other tobacco user? No Problems Problem Type SNOMED Code ICD Code Onset Dates Problem Status W/U Status Risk Notes Problem Acquired hallux rigidus (9799589) Hallux rigidus, left foot (M20.22) Active confirmed Problem Acquired hammer toe of left foot ([id number]) Other hammer toe(s) (acquired), left foot (M20.42) Active confirmed Vital Signs Height 4ft 9in in 10/27/2023 Weight 115 lbs 10/27/2023 BMI 24.88 kg/m2 10/27/2023 Encounters Encounter Location Date Provider Diagnosis [facility] [place] [address] [place] [id number] 10/27/2023 Hasmukh Edmond Pain in left foot M79.672 ; Pain in right foot M79.671 ; Metatarsalgia, left foot M77.42 ; Metatarsalgia, right foot M77.41 ; Hallux rigidus, left foot M20.22 and Other hammer toe(s) (acquired), left foot M20.42 Assessments Encounter Date Diagnosis (ICD Code) Assessment Notes Treatment Notes Treatment Clinical Notes Section Notes 10/27/2023 Pain in right foot (ICD-10 - M79.671) 10/27/2023 Pain in left foot (ICD-10 - M79.672) 10/27/2023 Metatarsalgia, left foot (ICD-10 - M77.42) 10/27/2023 Metatarsalgia, right foot (ICD-10 - M77.41) 10/27/2023 Hallux rigidus, left foot (ICD-10 - M20.22) 10/27/2023 Other hammer toe(s) (acquired), left foot (ICD-10 - M20.42) Plan Of Treatment Pending Test Test Name Order Date X ray : Foot, left 3V 10/27/2023 X ray : Foot, right 3V 10/27/2023 Insurance Providers Payer Name Payer Address Payer Phone Subscriber Number Group Number Insured Name Patient Relationship to Insured Coverage Start Date Coverage End Date Medicare [employer] [address] [place] [phone] [id number] Maryjane Hunt Self - patient is the insured [facility]) [address] [place] [address] [id number] Galvin Self - patient is the insured Medical (General) History Medical History History ICD Code Arthritis Back,Hip,and Knee pain skin cancer Cataracts Headaches/Migraines Numbness Osteoporosis raynauds disease Stroke Pacemaker Measles Mumps Joint implants/screws Surgical History Surgery Date(Month/Year) hip replacement 2012, 2013 knee replacement 1999, 2017 shoulder replacement 2009, 2018 cardiac pacemeker 05/2022 foot surgery 1998 hysterectomy abt 24 yrs old
--- OUTSIDE RECORDS SUMMARY | 2024-09-12 15:17 | XMS_ITS ---
Author Organization [facility] Address [address] [facility] [place] [address] Care Team Providers Care Track Mechanic Name Role Phone Mary Santana Primary Care Provider Hasmukh Blanco Unavailable [phone] Allergies Allergen (clinical drug ingredient) Drug/Non Drug Allergy documented on EMR Reaction Allergy Type Onset Date Status doxycycline Doxycycline vomiting Drug Allergy Act cheryl Penicillin abnormal swelling Drug Allergy Active REASON FOR VISIT Foot pain Medications Medication SIG (Take, Route, Frequency, Duration) Notes Start Date End Date Status oxyCODONE HCl 10 MG 1 tablet as needed O rally every 6 hrs Active Soma 350 MG 1 tablet as needed O rally Four times a day Active amLODIPine Besylate 5 MG 1 tablet Orally Once a day for 30 day(s) Active OxyCONTIN 10 MG 1 tablet Orally ever y 12 hrs Active Tylenol Active Atorvastatin Calcium 20 MG 1 tablet Oral ly Once a day for 30 day(s) Active Vitamin D3 Active Voltaren 1 % as directed Externally 10/27/2023 Active Social History Tobacco Use: Social History [...] Status Risk Notes Problem Acquired hallux rigidus (7016822) Hallux rigidus, left foot (M20.22) Active confirmed Problem Acquired hammer toe of left foot (6021871490933 103) Other hammer toe(s) (acquired), left foot (M20.42) Active confirmed Vital Signs Height 4ft 9in in 10/27/2023 Weight 115 lbs 10/27/2023 BMI 24.88 kg/m2 10/27/2023 Encounters Encounter Location Date Provider Diagnosis [facility] [place] [address] [place] [id number] 10/27/2023 Hasmukh Edmond Pain in left foot M79.672 ; Pain in right foot M79.671 ; Metatarsalgia, left foot M77.42 ; Metatarsalgia, right foot M77.41 ; Hallux rigidus, left foot M20.22 and Other hammer toe(s) (acquired), left foot M20.42 Assessments Encounter Date Diagnosis (ICD Code) Assessment Notes Treatment Notes Treatment Clinical Notes Section Notes 10/27/2023 Pain in left foot (ICD-10 - M79.672) 10/27/2023 Pain in right foot (ICD-10 - M79.671) 10/27/2023 Metatarsalgia, left foot (ICD-10 - M77.42) 10/27/2023 Metatarsalgia, right foot (ICD-10 - M77.41) 10/27/2023 Hallux rigidus, left foot (ICD-10 - M20.22) 10/27/2023 Other hammer toe(s) (acquired), left foot (ICD-10 - M20.42) Plan Of Treatment Medication Medication Name Sig Start Date Stop Date Notes Voltaren 1 % as directed Externally 10/27/2023 Pending Test Test Name Order Date X ray : Foot, left 3V 10/27/2023 X ray : Foot, right 3V 10/27/2023 Next Appt Details Follow Up: prn, Reason: Progress Notes * Getachew QUINTEROOB: [birth year] (83 yo F)Acc No.[id number]:10/27/2023 Progress Notes Patient:?Maryjane Quintero Provider:?Hasmuhk Edmond DPM :1940???Age:83 Y???Sex:Female D ate:10/27/2023 Address:[address] [place] [address] [address], [id number] Pcp:Mary Santana Subjective: * Chief Complaints: * ???Foot pain * HPI: ???Foot Pain:?Nature:?aching, throbbing, stiffness, swelling.?Location?Forefoot, B/L, L>R.?Duration:?several years.?Onset/Cause:?unknown, denies trauma.?Course:?worse.?Aggrevated:?any pressure, standing, walking.?Treatments:?padding, use of walker.?Quality/Severity?moderate.? * ROS:?General/Constitutional:?Nausea?denies, denies.?Vomiting?denies, denies.?Hunger Thirst?denies, denies.?Loss appetite?denies, denies.?Chills?denies, denies.?Fatigue?denies, denies.?Fever?denies, denies.?Night Sweats denies, denies.?Unexplained weight loss?denies, denies.?Unexplained weight gain?denies.?Ophthalmologic:?Blurred vision?denies.?Red eye?denies.?HEENTM:?Dentures?denies, denies.?Dizziness?denies, denies.?Glasses/contacts?admits, denies.?Retinopathy?denies, denies.?Blurred/double vision?denies, denies.?TMJ?denies, denies.?Discharge/drainage?denies, denies.?Implants?denies, denies.?Sore throat?denies.?Dental implants?denies.?Hard of hearing ?denies, denies.?Difficulty chewing/swallowing/speaking?denies, denies.?Nose bleeds?denies, denies.?Sore mouth?denies, denies.?Swollen glands?denies.?Respiratory:?On Oxygen?denies, denies.?Pneumonia/pleurisy?denies, denies.?Bronchitis?denies, denies.?Emphysema?denies, denies.?Coughing?denies, denies.?Cough blood?denies, denies.?Shortness of breath?denies, denies.?Wheezing?denies, denies.?Cardiovascular:?Pacemaker?admits, denies.?MVP?denies, denies.?WPW?denies, denies.?CHF?denies, denies.?Heart attack?denies, denies.?Septal defect?denies, denies.?Rapid beat?denies, denies.?Chest pain ?denies, denies.?Atrial Fib.?denies, denies.?Murmur/Palpitations?denies, denies.?Gastrointestinal:?Hemorrhoids?denies, denies.?Stomach/Abdominal pain?denies, denies.?Dark blood stool?denies, denies.?Irritable bowel ?denies, denies.?Constipation?denies, denies.?Diarrhea?denies, denies.?Vomiting?denies.?Hematology:?Swelling?admits, denies.?Clots?denies.?Varicose Veins?denies.?Bruising?admits, denies.?Bleeding problem?denies, denies.?Genitourinary:?Blood urine?denies, denies.?Frequent/Painfu/urination/bladder control?denies, denies.?Kidney stones?denies, denies.?Infection (UTI)?denies, denies.?Nephropathy?denies, denies.?sex trans dis (STD)?denies.?Prostate?denies.?Musculoskeletal:?Hammertoes?admits, denies.?Bunions?admits, denies.?Scoliosis/kyphosis?denies.?Back Pain?admits.?Muscle Cramps/ Resting?admits.?Muscle cramps / walking?admits, denies.?Generalized aches and pains?admits, denies.?Weakness?admits, denies.?Integ.:?Melo?denies, denies.?Scars?admits, denies.?Corns/calluses?admits, denies.?Ingrown nails?admits, denies.?Painful nails?admits, denies.?Open Sores?admits.?Rashes?denies, denies.?Neurologic:?Difficulty sleeping?denies, denies.?Bipolar?denies.?Brain disorder?denies, denies.?Numbness?admits.?Balance trouble?admits, denies.?Confusion?denies, denies.?Fainting/blackouts?denies, denies.?Headache?denies.?Tingling?denies.?Tremors?denies, denies.? * Medical History:? * Surgical History:?hip replac ement 2012, 2013knee replacement 1999, 2018shoulder replacement 2009, 2018cardiac pacemeker 05/2022foot surgery 1998hysterectomy abt 24 yrs old * Hospitalization/Major Diagno stic Procedure:?No Hospitalization History. * Family History:?Mother: dece ased, foot problems, poor circulation, diagnosed with Family history of arthritis.?Father: , diagnosed with Family history of arthritis, Other malignant neoplasm of unspecified site.? * Social History:?Tobacco Use:?Tobacco Use/Smoking?Are you a:?nonsmoker ?Tobacco use other than smoking?Are you an other tobacco user??No ???Drugs/Alcohol:?Drugs?Have you used drugs other than those for medical reasons in the past 12 months??No ?Alcohol Screen?Did you have a drink containing alcohol in the past year??Yes ?How often did you have a drink containing alcohol in the past year??Monthly or less (1 point) ?Points?1 ?Interpretation?Negative ???Miscellaneous:?Caffeine: yes. ?Children: yes, 2. ?Marital status: . ?Occupation: Retired. * Medications:?TakingVitamin D 3 Atorvastatin Calcium 20 MG Tablet 1 tablet Orally Once a daySoma 350 MG Tablet 1 tablet as needed Orally Four times a dayoxyCODONE HCl 10 MG Tablet 1 tablet as needed Orally every 6 hrsTylenol OxyCONTIN 10 MG Tablet ER 12 Hour Abuse-Deterrent 1 tablet Orally every 12 hrsamLODIPine Besylate 5 MG Tablet 1 tablet Orally Once a dayMedication List reviewed and reconciled with the patientTaking Vitamin D3 Taking Atorvastatin Calcium 20 MG Tablet 1 tablet Orally Once a dayTaking Soma 350 MG Tablet 1 tablet as needed Orally Four times a dayTaking oxyCODONE HCl 10 MG Tablet 1 tablet as needed Orally every 6 hrsTaking Tylenol Taking OxyCONTIN 10 MG Tablet ER 12 Hour Abuse-Deterrent 1 tablet Orally every 12 hrsTaking amLODIPine Besylate 5 MG Tablet 1 tablet Orally Once a dayMedication List reviewed and reconciled with the patient * Allergies:?Penicillin: abnor mal swellingDoxycycline: vomitingyes[Allergies Verified] Objective: * Vitals:?Ht: 4ft 9in, Wt: 115 , BMI: 24.88, Shoe size: 6.5, Wt-k.16 kg. * Examination: ???General Examination: ?GENERAL APPEARANCE:?pleasant, alert, well nourished, well developed, well hydrated, with good attention to hygene/body habitus, and in no acute distress.?ORIENTED:?person,place, and time.?Neurological: ?SENSORY:?Neurological exam is normal, pain sensation normal, vibration sensation intact, pinprick sensation is normal in the lower extremities, denies, tingling, burning, anesthesia, paresthesia, hyperesthesia, B/L, Neurological exam demonstrates pop brent 1-4 mt's and pop plantar left hallux ipj.?TINEL'S COMPRESSION:?Negative tarsal tunnel, ankush pedis, and medial calcaneal nerves B/L.?BABINSKI REFLEX:?absent.?Neuroma Pain: ?PALPATION:?No interspace pain noted on palpation.?Vascular: ?DP PULSES:? 1/4, B/L.?PT PULSES:?0/4, B/L.?CAPILLARY FILL TIME:? delayed, all digits, B/L.?SKIN TEMPERTURE GRADIENT OF THE LOWER EXTERMITIES:? decreased, cool to cold, proximal to distal, B/L.?HAIR GROWTH/TEXTURE/ELASTICITY/TURGOR:? decreased, B/L.?PIGMENTATION:? brawny, B/L.?Dermatologic: ?SKIN FINDINGS:?Skin exam reveals normal texture, elasticity, and tugor. There are no masses. The interspaces are clear, B/L .?Orthopedic: ?MUSCLE STRENGTH:?5/5 all groups in a symmetrical fashion , B/L.?GAIT ABNORMALITY:?pronated, abducted, B/L.?BUNION:? left first mtpj is plantarflexed with t1 overlapping; right first mtpj is fused.?X-Rays - IMAGING REPORT: ?Clinical Indication(s):? Evaluate Biomechanical Deformity, Evaluate for Fracture.?Views:? 3 views of Foot, B/L.?Findings:? severe generalized decrease in bone density.?Foot structure:? reveals excess pronation with, anterior break in cyme line.?Digits:? show asymmetrical joint space narrowing at the PIPJ consistent with clinical finding of hammertoe deformity, show enlarged/hypertrophied phalangeal head(s) consistent for clinical finding of hammertoe deformity, show dorsal dislocation of MTPJ, 2nd digit-left overlapping ta.?HAV:? increased Hallux Abductus angle, increased 1st IM angle, increased Hallux Interphalangeus angle with asymmetrical IPJ and joint degeneration, moderate, severe-left and fusion with plate fixation right.?Fracture:? Sign of Stress fracture identified distal 1/3 shaft, 3rd MT, 4th MT, Right--old healed fx's at neck of met.? Assessment: * Assessment: 1.?Pain in right foot - M79. 671?2.?Pain in left foot - M79.672 (Primary)?3.?Metatarsalgia, left foot - M77.42?4.?Metatarsalgia, right foot - M77.41?5.?Hallux rigidus, left foot - M20.22?6.?Other hammer toe(s) (acquired), left foot - M20.42? Plan: * Treatment: 2.?Pain in right foot?Imaging: X ray : Foot, right 3V * Procedure Codes:?59585 X-RAY EXAM OF LEFT FOOT 3V, Modifiers: 26 , VQ42100 X-RAY EXAM OF RIGHT FOOT 3V, Modifiers: 26 , RT * Preventive Medicine:? ??Counseling:?Discussion:?-03: Office or other outpatient visit for the evaluation and management of a new patient, which required a medically appropriate history and/or examination and LOW level of DECISION MAKING for: 1 STABLE ACUTE UNCOMPLICATED PROBLEM, 2 OR MORE MINOR PROBLEMS, OR 1 STABLE CHRONIC PROBLEM, THAT POSE(S) A LOW RISK FOR MORBIDITY/MORTALITY. The visit on the day of the encounter encompassed interpreting the data and educating the patient as to the nature of their condition, treatment options available according to their individual PMH, meds, allergies, and overall health/living conditions, as well as any potential risks or complications that may occur from a failure to adhere to, and participate in, the recommended course of therapy. The discussion included a complete verbal, and/or written explanation of the examination results, any x-rays taken, the proposed diagnosis, and outline of the treatment plan. A schedule for future care needs was also explained. The patient verbalized an understanding of the instructions at this time and agreed to be an active participant in their treatment. If the patient should think of any questions or concerns after the visit, I have encouraged the patient to call the office.?Metatarsalgea:?I explained to the patient the possible etiologies of their Metatarsalgea Foot pain, including foot type/shoegear/activity level/exercise routine and the risks/benefits of all the different treatment options for pain including: No treatment at all, Rest, Ice, NSAIDs(only if well tolerated after meals), New/supportive Shoegear, Strappings and Tapings, Foot/Ankle AFO Bracing, Stretching exercises, Deep Tissue Massage, Arch support/shoe inserts, Custom orthoses, Topical analgesics including Aspercream/Voltaren gel, Physical Therapy, Cortisone injection therapy, EPAT/ESWT. Advantages and disadvantages of each option were discussed and the patients questions re: shoegear, custom vs prefabricated inserts, activity level, PO vs Topical medications (and their respective potential complications/drug interactions/side effects), and consistency in home treatment regimens for optimal success were answered to their verbally confirmed satisfaction, Topical pain control compound combination therapy was recommended and rxed.?Shoe Gear Counseling:?The patient and I reviewed the types of shoes they should be wearing. My recommendation included obtaining a well-fitted shoe with a good supportive, non-foldable nor twistable sole, plenty of toe/room for the forefoot, and proper arch support. Based on todays examination, I recommended the patient look for new shoes, by having their feet professionally measured. We discussed that generally the best time of the day for a shoe fitting is the afternoon. Different shoes types and brands to best match the patients occupation and vocation were discussed. Specific brand selection will be up to the patient, their individual foot condition/deformities, and fit. The patient and I reviewed the standard new shoe break in period by wearing them for a few hours a day while checking for redness or sores as wear time is increased. The patient verbally confirmed to understanding the information discussed--only firm sole shoes and use of walker.? * Follow Up:?prn * Images: * Sign off status: Completed true * Provider:?Hasmukh Edmond DPM Date:? 024 Generated for Printi ng/Yael/eTransmitting on:?09/12/2024 03:16 PM EST History and Physical Notes * HPI (History of Present Illness) Category Sub-Category Detail Notes Category Not es Foot Pain Aggrevated: any pressure, standing, walk ing Onset/Cause: unknown, denies enid raphael Course: worse Duration: several years Nature: aching, throbbing, s tiffness, swelling Treatments: padding, use of walk er Quality/Severity moderate Location Forefoot, B/L, L>R Examination Category Sub-Category Detail Notes Category Not es Neuroma Pain PALPATION: No interspace pain noted on palpation Neurological SENSORY: Neurological exa m is normal, pain sensation normal, vibration sensation intact, pinprick sensation is normal in the lower extremities, denies, tingling, burning, anesthesia, paresthesia, hyperesthesia, B/L, Neurological exam demonstrates pop brent 1-4 mt's and pop plantar left hallux ipj BABINSKI REFLEX: absent TINEL'S COMPRESSION: Negative tarsal isis vei, ankush pedis, and medial calcaneal nerves B/L Dermatologic SKIN FINDINGS: Skin exam reveal s normal texture, elasticity, and tugor. There are no masses. The interspaces are clear, B/L Orthopedic GAIT ABNORMALITY: pronated, abducted, B/L BUNION: left first mtpj is p lantarflexed with t1 overlapping; right first mtpj is fused MUSCLE STRENGTH: 5/5 all groups in a symmetrical fashion , B/L General Examination GENERAL APPEARANCE: pleasant , alert, well nourished, well developed, well hydrated, with good attention to hygene/body habitus, and in no acute distress ORIENTED: person,place, and ti me Vascular DP PULSES (B): 1/4, B/L PT PULSES (B): 0/4, B/L CAPILLARY FILL TIME: delayed, all digits , B/L TEMPERTURE GRADIENT (C): decreased, cool to cold, proximal to distal, B/L TROPHIC CONDITION-TEXTURE/ELASTICITY/TURGOR/HAIR GROWTH (B): decreased, B/L PIGMENTATION: brawny, B/L X-Rays - IMAGING REPORT Findings: severe generalize d decrease in bone density Fracture: Sign of Stress fract ure identified distal 1/3 shaft, 3rd MT, 4th MT, Right--old healed fx's at neck of met Digits: show asymmetrical katie int space narrowing at the PIPJ consistent with clinical finding of hammertoe deformity, show enlarged/hypertrophied phalangeal head(s) consistent for clinical finding of hammertoe deformity, show dorsal dislocation of MTPJ, 2nd digit-left overlapping ta Foot structure: reveals excess prona tion with, anterior break in cyme line HAV: increased Hallux Abd uctus angle, increased 1st IM angle, increased Hallux Interphalangeus angle with asymmetrical IPJ and joint degeneration, moderate, severe-left and fusion with plate fixation right Views: 3 views of Foot, B/L Clinical Indication(s): Evaluate Biomech anical Deformity, Evaluate for Fracture
--- OUTSIDE RECORDS SUMMARY | 2024-09-12 15:17 | XMS_ITS | Patient Health Record ---
Author Organization [facility] Address [address] [facility] [address] [place] [address] Care Team Providers Care Drugless Doctor Name Role Phone Zarina Hendrickson Unavailable [phone] Reason For Referral No Information Medications Medication SIG (Take, Route, Frequency, Duration) Notes Start Date End Date Status Percocet 5-325 1 ORAL every six perez rs for 10 [facility] 07/15/2013 Active predniSONE 1 ORAL daily for -3 [facility] 07/15/2013 Active Soma 1 ORAL FOUR TIMES DA MAHESH for 10 [facility] 07/15/2013 Active Aspirin EC 81MG 1 ORAL daily for -3 [facility] 07/15/2013 Active Estrace Vaginal Cream 42.5GM Vaginal 1GM 2X A WEEK for - [facility] 07/15/2013 Active Problems Problem Type SNOMED Code ICD Code Onset Dates Problem Status W/U Status Risk Notes Problem Menopausal symptom (23474996) Symptomatic menopausal or female climacteric states (627.2) Active confirmed Major Problem Postmenopausal atrophic vaginitis (94415397) Postmenopausal atrophic vaginitis (627.3) Active confirmed Diag Problem Osteoarthritis (849556100) Osteoarthrosis, unspecified whether generalized or localized, unspecified site (715.90) Active confirmed Major Problem 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) Active confirmed Major Problem Gynecological examination normal (680904356106807) Routine gynecological examination (V72.31) Active confirmed Major Problem History of cerebrovascular accident without residual deficits (466629406) Personal history of transient ischemic attack [TIA], and cerebral infarction without residual deficits (V12.54) Active confirmed Major Problem Screening for malignant neoplasm of colon (833449456) Special screening for malignant neoplasms, colon (V76.51) Active confirmed Major Plan Of Treatment No Information Insurance Providers Payer Name Payer Address Payer Phone Subscriber Number Group Number Insured Name Patient Relationship to Insured Coverage Start Date Coverage End Date MEDICARE [address] [place], [place] [id number] WANDA QUINTERO Self - patient is the insured [facility] [employer] [address] [place], [place] [id number] [phone] [id number] WANDA QUINTERO Self - patient is the insured
--- OUTSIDE RECORDS SUMMARY | 2024-09-12 15:17 | XMS_ITS ---
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 Generated for Printi christie/Yael/eTransmitting on:?09/12/2024 03:16 PM EST
--- OUTSIDE RECORDS SUMMARY | 2024-09-12 15:17 | XMS_ITS ---
Author Organization [facility] Address [address] [facility] [place] [address] Care Team Providers Care Seismometer Operator Name Role Phone Mary Santana Primary Care Provider Hasmukh Blanco Unavailable [phone] Allergies Allergen (clinical drug ingredient) Drug/Non Drug Allergy documented on EMR Reaction Allergy Type Onset Date Status doxycycline Doxycycline vomiting Drug Allergy Act cheryl Penicillin abnormal swelling Drug Allergy Active Medications Medication SIG (Take, Route, Frequency, Duration) Notes Start Date End Date Status Atorvastatin Calcium 20 MG 1 tablet Oral ly Once a day for 30 day(s) Active Soma 350 MG 1 tablet as needed O rally Four times a day Active Vitamin D3 Active OxyCONTIN 10 MG 1 tablet Orally ever y 12 hrs Active amLODIPine Besylate 5 MG 1 tablet Orally Once a day for 30 day(s) Active oxyCODONE HCl 10 MG 1 tablet as needed O rally every 6 hrs Active Tylenol Active Social History Tobacco [...] Are you an other tobacco user? No Vital Signs Height 4ft 9in in 08/04/2023 Weight 113 lbs 08/04/2023 BMI 24.45 kg/m2 08/04/2023 Encounters Encounter Location Date Provider Diagnosis [facility] [address] [address] 08/04/2023 Hasmukh Edmond Plan Of Treatment No Information Progress Notes * Getachew QUINTEROOB: 938 (84 yo F)Acc No.[id number]:08/04/2023 Progress Notes Patient:Maryjane BRAXTON Provider:?Hasmukh Edmond DPM :1940???Age:83 Y???Sex:Female D ate:08/04/2023 Address:[address] [place] [address] Dr luna, [facility] [address], [facility] Pcp:Mary Santana Subjective: * Chief Complaints: * ??? * ROS:?General/Constitutional:?Nausea?denies.?Vomiting?denies.?Hunger Thirst?denies.?Loss appetite?denies.?Chills?denies.?Fatigue?denies.?Fever?denies.?Night Sweats?denies.?Unexplained weight loss?denies.?Unexplained weight gain?denies.?HEENTM:?Dentures?denies.?Dizziness?denies.?Glasses/contacts?admits.?Retinopathy?de nies.?Blurred/double vision?denies.?TMJ?denies.?Discharge/drainage?denies.?Implants?denies.?Sore throat?denies.?Dental implants?denies.?Hard of hearing ?denies.?Difficulty chewing/swallowing/speaking?denies.?Nose bleeds?denies.?Sore mouth?denies.?Respiratory:?On Oxygen?denies.?Pneumonia/pleurisy?denies.?Bronchitis?denies.?Emphysema?denies.?C oughing?denies.?Cough blood?denies.?Shortness of breath?denies.?Wheezing?denies.?Cardiovascular:?Pacemaker?admits.?MVP?denies.?WPW?denies.?CHF?denies.?Heart attack?denies.?Septal defect?denies.?Rapid beat?denies.?Chest pain ?denies.?Atrial Fib.?denies.?Murmur/Palpitations?denies.?Gastrointestinal:?Hemorrhoids?denies.?Stomach/Abdominal pain?denies.?Dark blood stool?denies.?Irritable bowel ?denies.?Constipation?denies.?Diarrhea?denies.?Hematology:?Swelling?admits.?Clots?denies.?Varicose Veins?denies.?Bruising?admits.?Bleeding problem?denies.?Genitourinary:?Blood urine?denies.?Frequent/Painfu/urination/bladder control?denies.?Kidney stones?denies.?Infection (UTI)?denies.?Nephropathy?denies.?sex trans dis (STD)?denies.?Prostate?denies.?Musculoskeletal:?Hammertoes?admits.?Bunions?admits.?Back Pain?admits.?Muscle Cramps/ Resting?admits.?Muscle cramps / walking?admits.?Generalized aches and pains?admits.?Weakness?admits.?Integ.:?Melo?denies.?Scars?admits.?Corns/calluses?admits.?Ingrown nails?admits.?Painful nails?admits.?Open Sores?admits.?Rashes?denies.?Neurologic:?Difficulty sleeping?denies.?Brain disorder?denies.?Numbness?admits.?Balance trouble?admits.?Confusion?denies.?Fainting/blackouts?denies.?Tingling?denies.?Tr emors?denies.? * Medical History:?Arthritis, Back,Hip,and Knee pain, Skin cancer, Cataracts, Headaches/Migraines, Numbness, Osteoporosis, Raynauds disease, Stroke, Pacemaker, Measles, Mumps, Joint implants/screws. * Surgical History:?hip replac ement 2012, 2013, knee replacement 1999, 2017, shoulder replacement 2009, 2018, cardiac pacemeker 05/2022, foot surgery 1997, hysterectomy abt 24 yrs old. * Family History:?Mother: dece ased, foot problems, [...] 2. ?Marital status: . ?Occupation: Retired. * Medications:?Taking Vitamin D3 , Taking Atorvastatin Calcium 20 MG Tablet 1 tablet Orally Once a day , Taking Soma 350 MG Tablet 1 tablet as needed Orally Four times a day , Taking oxyCODONE HCl 10 MG Tablet 1 tablet as needed Orally every 6 hrs , Taking Tylenol , Taking OxyCONTIN 10 MG Tablet ER 12 Hour Abuse-Deterrent 1 tablet Orally every 12 hrs , Taking amLODIPine Besylate 5 MG Tablet 1 tablet Orally Once a day * Allergies:?Penicillin: abnor mal swelling, Doxycycline: vomiting. Objective: * Vitals:?Ht:4ft 9in, Wt:113, BMI:24.45. Assessment: Plan: * Treatment: * Images: * The named appointment provid er may or may not be the originator of this progress note, and it is not deemed complete until electronically signed by the appointment provider. Sign off status: Pending * Provider:Fer Edmond DPM Date:? 024 Generated for Suze soriano/Yael/Jayde on:?09/12/2024 03:16 PM EST
== END 2024-09-12 15:36 | disposition home or self-care (01) ==
PROVIDERS: PCP Physician Assistant Medical; Visit Provider Physician Assistant Medical
DX: Z09 Encounter for follow-up examination after completed treatment for conditions other than malignant neoplasm (principal); W19.XXXA Unspecified fall, initial encounter; L03.116 Cellulitis of left lower limb; L03.115 Cellulitis of right lower limb; M15.0 Primary generalized (osteo)arthritis; L89.90 Pressure ulcer of unspecified site, unspecified stage; I25.10 Atherosclerotic heart disease of native coronary artery without angina pectoris; I73.9 Peripheral vascular disease, unspecified; E78.5 Hyperlipidemia, unspecified

== ENCOUNTER → 2024-09-12 14:10 | Outpatient (BNVA) | payer MEDICARE, OTHER, SELFPAY | PROVIDERS: PCP Physician Assistant Medical; Visit Provider Physician Assistant Medical | DX: Z09 Encounter for follow-up examination after completed treatment for conditions other than malignant neoplasm (principal); I21.4 Non-ST elevation (NSTEMI) myocardial infarction; L03.116 Cellulitis of left lower limb; L03.115 Cellulitis of right lower limb; M15.9 Polyosteoarthritis, unspecified; L89.90 Pressure ulcer of unspecified site, unspecified stage; I25.10 Atherosclerotic heart disease of native coronary artery without angina pectoris; I73.9 Peripheral vascular disease, unspecified; E78.5 Hyperlipidemia, unspecified; Z86.73 Personal history of transient ischemic attack (TIA), and cerebral infarction without residual deficits; Z95.0 Presence of cardiac pacemaker; Z79.891 Long term (current) use of opiate analgesic; Z91.81 History of falling | CPT/HCPCS: 96127; 99212 ==

== ENCOUNTER → 2024-11-04 14:24 | Outpatient (BNVA) | payer MEDICARE, OTHER, SELFPAY | PROVIDERS: PCP Physician Assistant Medical; Visit Provider Physician Assistant Medical | DX: Z13.89 Encounter for screening for other disorder (principal) ==

== ENCOUNTER 2024-11-25 11:01 | Outpatient (AMB) | payer MEDICARE, OTHER, SELFPAY ==
--- NOTE | 2024-11-25 11:08 | MHC.PC.OV ---
Vital Signs 11/25/24 11:14 Height 4 ft 7 in BMI Reason not done Patient refused/unable BP 118/68 Blood Pressure Location Rt brachial Position Sitting Pulse 80 Pulse Source Pulse Oximeter Temp 98.6 F Temp Source Temporal Artery Scan Pulse Oximetry (%) 96 Oxygen Delivery Method Room Air Intake Visit Reasons: Discharge from [facility] Intake Note: Sonny presents in the office today for an ER Follow up. Patient spent one week in [facility]. Allergies Penicillins [PENICILLINS] Allergy (Unknown, Verified 11/25/24 11:12) SWELLING doxycycline Adverse Reaction (Intermediate, Verified 11/25/24 11:12) Vomiting Tobacco use date assessed: 11/25/24 Fall risk assessment: 2 + Falls in past year Last assessed Fall Risk: 11/25/24 Dental Screening Dental Screen Date: 11/25/24 Did you have a dental visit in the last 12 months?: No Did you have a dental problem in the last 6 months where you did not have access to dental care?: No Was dental information given to patient?: No HPI HPI Comments History of Present Illness Details This is an 84-year-old female with a past medical history of NSTEMI 2024, ischemic stroke and recurrent TIAs, peripheral vascular disease and recurrent cellulitis of the lower extremities, chronic back pain on opiates, skin cancer and 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 She is here with her healthcare proxy, Marie, and healthcare associate, Mela. She presented to the ED by ambulance on 11/03/2024 after falling at home. She denied loss of consciousness or head strike. She had tested positive for COVID-19 that morning. She sustained a skin tear on her right upper arm which has since healed. Negative right knee x-ray for fracture and head CT negative for acute changes. Patient dischaged to short term rehab then to home on 11/08/24. Patient having home PT eval tomorrow. OT and speech also to resume. prison resumed. She saw Cardiology on 09/03/2023. Dr. Heard is her linoleum floor layer. She has a longstanding history of PVD and lower extremity edema. She is followed by Dr. Medrano. She has had recurrent cellulitis of her legs. This has not been bothering her recently. She has chronic pressure ulcers on her buttocks that are treated with foam padding and zinc oxide. She is very frail and bony. She was finally able to get the hospital bed with air mattress. They bring up concerns today about possible Parkinson's. Her tone of voice has diminished and is softer over the past year. She has trouble with word finding. She has cognitive decline. She is weaker and slower with walker use and transfers. She feels like her legs get stuck when she tries to take steps. They also note hand tremors over the past year which are worse in the left hand. They note this whether she is doing something with the hand or it is resting on her lap. Reviewed Mag, CBC and BMP from ER on Marie's phone which are normal. Last TSH normal. She has also been referred to ENT due to the voice change. She has no difficulty swallowing or throat pain. They deny weight loss. Chronic pain is managed by Dr. Baugh. She has a history of multiple joint replacement surgeries. She has a compression fracture from an old injury. She is on opioids chronically. She was previously on gabapentin which was discontinued due to causing memory issues. She has carpal tunnel syndrome. She was tried on Lyrica but did not notice much of a difference on the medication, and it was discontinued. ROS: Constitutional: Denies further weight loss, fevers or chills. Respiratory: No cough. No shortness a breath. Cardiovascular: No chest pain or palpitations. Chronic lower extremity edema. Gastrointestinal: No nausea, vomiting or abdominal pain Neurologic: No headache, dizziness, syncope, seizures, see HPI Musculoskeletal: chronic pain Skin: see HPI Physical exam: Constitutional: Alert, in no distress. In wheelchair. Voice is very soft. Head: Normocephalic. Neck: Supple, Full range of motion. No lymphadenopathy. Respiratory: Clear to auscultation. Cardiovascular: S1 S2 regular. No murmurs. Neurologic:?Alert and oriented x 3, UE and LE strength 3/5 bilaterally. CN 2-12 intact, [id number] normal, sensation symmetric.? Gait is very slow.? No pronator drift.? Bilateral hand tremor noted, left is worse than the right. Hand tremor has somewhat of a pill rolling quaity on the left. [facility] Medical History (Updated 11/26/24 @ 13:35 by BORIS Abreu) COVID-19 Word finding difficulty Cognitive decline Weakness Ataxia Change in voice Tremor Fall Hospital discharge follow-up Bilateral lower leg cellulitis Paresthesias Physical deconditioning Osteoarthritis, multiple sites Pressure ulcers of skin of multiple topographic sites Risk for falls Coronary artery disease Osteoporosis PVD (peripheral vascular disease) PMR (polymyalgia rheumatica) Pacemaker Chronic neck pain Liver cyst Hyperlipidemia LDL goal <70 History of recurrent TIAs History of WI (myocardial infarction) History of ischemic stroke History of anemia Compression fracture of spine Chronic pain syndrome Candidal intertrigo SCCA (squamous cell carcinoma) of skin BCC (basal cell carcinoma of skin) AV block, 3rd degree Surgical History (Updated 01/11/24 @ 11:55 by BORIS Abreu) History of elbow surgery History of bunionectomy S/p bilateral shoulder joint replacement History of left hip replacement History of bilateral knee replacement Social History (Updated 11/25/24 @ 11:14 by Indigo Nieto MA) Housing: [facility] Alcohol intake: never Patient Tobacco Use Status: Never used Tobacco e-Cigarette/Vaping Use: Never Used Second Hand Smoke Exposure: Yes service: No Current occupational status: retired Current occupational exposures/hazards: No Cognitive needs: No Hearing needs: No Vision needs: No Questionnaire PHQ-9 Over the last 2 weeks, how often have you been bothered by any of the following problems? 1. Little interest or pleasure in doing things: not at all 2. Feeling down, depressed, or hopeless: not at all 3. Trouble falling or staying asleep, or sleeping too much: not at all 4. Feeling tired or having little energy: not at all 5. Poor appetite or overeating: not at all 6. Feeling bad about yourself - or that you are a failure or have let yourself or your family down: not at all 7. Trouble concentrating on things, such as reading the newspaper or watching television: not at all 8. Moving or speaking so slowly that other people could have noticed. Or the opposite - being so fidgety or restless that you have been moving around a lot more than usual: not at all 9. Thoughts that you would be better off or of hurting yourself in some way: not at all Total score: 0 Depression Screening Interpretation: Negative Depression Screening Done: Yes 89870 - PHQ-9 Billing: Patient declined-do not bill Source: Developed by Drs. Cooper Oreilly, Alisia Armenta, Jose Juan Bustillo and colleagues, with an educational nella from [employer]. Thrive Questionnaire Date Thrive assessed: 11/25/24 I am a: Parent/Caregiver What is your living situation today?: I have a steady place to live Within the past 12 months, did the food you bought not last and you didn't have the money to get more?: Sometimes True Within the past 12 months, did you worry whether your food would run out before you got money to buy more?: I choose not to answer this question Do you have trouble paying for medicines?: I choose not to answer this question Do you have trouble getting transportation to medical appointments?: I choose not to answer this question Do you have trouble paying your heating and electricity bill?: I choose not to answer this question Do you have trouble taking care of your child, family member or friend?: I choose not to answer this question Do you have trouble with day-to-day activities such as bathing, preparing meals, shopping, managing finances, etc.?: I choose not to answer this question Are you currently unemployed and looking for a job?: I choose not to answer this question Are you interested in more education?: I choose not to answer this question Please select the resources that you would like help with: None Currently or been in a relationship where the following occur: I choose not to answer THRIVE Score: 1 AUDIT C Alcohol Use Questionnaire (AUDIT-C) 1. How often do you have a drink containing alcohol?: Never Total Score: 0 Score Reviewed/Action Taken: No HOLLI-7 AMB Questionnaire HOLLI-7 Date HOLLI - 7 assessed: 11/25/24 Source: Developed by Drs. Cooper Oreilly, Alisia Armenta, Jose Juan Bustillo and colleagues, with an educational enlla from [employer]. Physical exam (Primary Care) Vital Signs: Last Vital Signs Temp 98.6 F 11/25/24 11:14 Pulse 80 11/25/24 11:14 BP 118/68 11/25/24 11:14 Pulse Ox 96 11/25/24 11:14 Oxygen Delivery Method Room Air 11/25/24 11:14 Tobacco/Smoking Status: Tobacco use Status Tobacco use date assessed 11/25/24 11/25/24 11:15 Patient Tobacco Use Status Never used Tobacco 11/25/24 11:15 e-Cigarette/Vaping Use Never Used 11/25/24 11:15 PHQ-9: PHQ-9 Score PHQ-9: Total score 0 11/25/24 11:15 Depression Screening Interpretation: Negative Thrive Assessment: Date of Thrive Assessment Date Thrive assessed 11/25/24 11/25/24 11:15 Currently or been in a relationship where the following occur: I choose not to answer Coding Level of Care Code Est Pt Level 5 (68212) Complex EM visit Add On G2211 Diagnoses Hospital discharge follow-up Z09 Fall W19.XXXA Primary osteoarthritis involving multiple joints M15.0 Osteoarthritis type: primary Coronary artery disease involving [place] coronary artery of [place] heart without angina pectoris I25.10 Coronary Disease-Associated Artery/Lesion type: [place] artery [place] vs. transplanted heart: [place] heart Associated angina: without angina PVD (peripheral vascular disease) I73.9 Hyperlipidemia LDL goal <70 E78.5 COVID-19 U07.1 Word finding difficulty R47.89 Cognitive decline R41.89 Weakness R53.1 Change in voice R49.9 Tremor R25.1 Time Spent (min) 47 Comment Patient care, documentation, chart review Assessment & Plan Assessment & Plan (1) Hospital discharge follow-up: Code(s): Z09 - Encounter for follow-up examination after completed treatment for conditions other than malignant neoplasm Category: Medical (2) Fall: Code(s): W19.XXXA - Unspecified fall, initial encounter Category: Medical (3) Osteoarthritis, multiple sites: Code(s): M15.9 - Polyosteoarthritis, unspecified Category: Medical Qualifiers: Osteoarthritis type: primary Qualified Code(s): M15.0 - Primary generalized (osteo)arthritis (4) Coronary artery disease: Code(s): I25.10 - Atherosclerotic heart disease of [place] coronary artery without angina pectoris Category: Medical Qualifiers: Coronary Disease-Associated Artery/Lesion type: [place] artery [place] vs. transplanted heart: [place] heart Associated angina: without angina Qualified Code(s): I25.10 - Atherosclerotic heart disease of [place] coronary artery without angina pectoris (5) PVD (peripheral vascular disease): Code(s): I73.9 - Peripheral vascular disease, unspecified Category: Medical (6) Hyperlipidemia LDL goal <70: Code(s): E78.5 - Hyperlipidemia, unspecified Category: Medical (7) COVID-19: Code(s): U07.1 - COVID-19 Category: Medical (8) Word finding difficulty: Code(s): R47.89 - Other speech disturbances Category: Medical (9) Cognitive decline: Code(s): R41.89 - Other symptoms and signs involving cognitive functions and awareness Category: Medical (10) Weakness: Code(s): R53.1 - Weakness Category: Medical (11) Change in voice: Code(s): R49.9 - Unspecified voice and resonance disorder Category: Medical (12) Tremor: Code(s): R25.1 - Tremor, unspecified Category: Medical Plan Patient is currently stable after last admission and rehab after a fall due to COVID-19 and weakness. prison, OT and PT are medically necessary. She is having the PT evaluation tomorrow. Please new referral for speech. She has been referred to ENT. Given tremor, cognitive decline and weakness over the past year I agree with request for Neurology consultation. Referral placed. I have also referred for neuropsychiatric evaluation. Check Lyme, vitamin-D, creatinine kinase. She is on a statin. Her next cardiology follow up is in March. Follow up with me in 8 weeks. Orders: Orders Vitamin D 25-OH (D2 and D3) 11/25/24 M85.80 - Other specified disorders of bone density and structure, unspecified site, R53.1 - Weakness Creatine Kinase Total 11/25/24 R53.1 - Weakness Lyme IgG/IgM w/reflex to WB 11/25/24 R53.1 - Weakness Referrals Neuropsychiatry Referral R41.89 - Other symptoms and signs involving cognitive functions and awareness [facility] Referral R47.89 - Other speech disturbances, R49.9 - Unspecified voice and resonance disorder
[2024-11-25 11:14] VITALS: BP 118/68; PULSE 80; TEMP 37; O2SAT 96
--- OUTSIDE RECORDS SUMMARY | 2024-11-25 12:45 | XMS_ITS | Clinical Summary ---
Author Organization [facility] Address [address] [place] [address] Care Team Providers Care Personal Lines Insurance Agent Name Role Phone Skip Cardenas MD Primary Care Provider Arnauda kolby Social History Tobacco Use Types Packs/Day Years Used Date Smoking Tobacco: Never Assessed Comments Unknown Sex and Gender Information Value Date Recorded Sex Assigned at Female 10/08/2024 11:43 AM EDT Legal Sex Female 6:24 PM EST Gender Identity Female 10/08/2024 11:43 AM EDT Sexual Orientation Heterosexual (straight) 10/08 11:43 AM EDT Plan of Treatment Upcoming Encounters Date Type Department Care Team (Late st Contact Info) Description 12/06/2024 11:45 AM EDT Clinical Support [facility] [address] [place] [address] Vesta Kolb PA-C [address] [place] [address] [phone] Sammie Valdes Au.D [address] [place] [address] [phone] Health Maintenance Due Date Last Done Comments DTaP/Tdap/Td Vaccines (1 - Tdap) 1959 Pneumococcal Vaccines 50+ (1 of 1 - PCV) 01/19/1988 Zoster (Shingles) Vaccine (1 of 2) 01/19/1988 DXA Bone Density (Females,Ag es 65 and older) 2003 RSV Vaccine 60 years and old er and Patients (1 - 1-dose 75+ series) 2013 COVID-19 Vaccine ( - 2023-2 5 season) 2024 Influenza Vaccine 02/21/2025 Hepatitis B Vaccines Aged Out No long er eligible based on patient's age to complete this topic Insurance [address] [place] [id number] MEDICARE PART A & B [facility] MEDICARE [address] [place] [id number] Care Teams Personal Lines Insurance Agent Relationship Specialty Start Date End Date Skip Cardenas MD PCP - General
--- OUTSIDE RECORDS SUMMARY | 2024-11-25 12:45 | XMS_ITS | Patient Health Record ---
Author Organization [facility] Address [address] [facility] [place] [address] Care Team Providers Care Casting Machine Service Operator Name Role Phone Mary Santana Primary Care Provider Hasmukh Blanco Unavailable [phone] Allergies Allergen (clinical drug ingredient) Drug/Non Drug [...] Problem Status W/U Status Risk Notes Problem Hallux rigidus, left foot (M20.22) Active confirmed Problem Acquired hammer toe of left foot (4144272323308 103) Other hammer toe(s) (acquired), left foot (M20.42) Active confirmed Plan Of Treatment Pending Test Test Name Order Date X ray : Foot, left 3V 10/27/2023 X ray : Foot, right 3V 10/27/2023 Insurance Providers Payer Name Payer Address Payer Phone Subscriber Number Group Number Insured Name Patient Relationship to Insured Coverage Start Date Coverage End Date Medicare National Govt [facility] [address] [place] [address] [id number] Maryjane Hunt Self - patient is the insured [employer] ([employer]) [address] [place] [id number] Maryjane Hunt Self - patient is the insured Medical [...]
--- OUTSIDE RECORDS SUMMARY | 2024-11-25 12:46 | XMS_ITS | Patient Health Record ---
Author Organization [facility] Address [address] [facility] [address] [place] [address] Care Team Providers Care Hyperion Developer Name Role Phone Zarina Hendrickson Unavailable [phone] Reason For Referral No Information Medications Medication SIG (Take, Route, Frequency, Duration) Notes Start Date End Date Status Percocet 5-325 1 ORAL every six perez rs for 10 [facility] 07/15/2013 Active predniSONE 1 ORAL daily for -3 [facility] 07/15/2013 Active Soma 1 ORAL FOUR TIMES DA MAHESH for 10 [facility] 07/15/2013 Active Aspirin EC 81MG 1 ORAL daily for -3 [facility] 07/15/2013 Active Estrace Vaginal Cream 42.5GM Vaginal 1GM 2X A WEEK for - [facility] 07/15/2013 Active Problems Problem Type SNOMED Code ICD Code Onset Dates Problem Status W/U Status Risk Notes Problem Menopausal symptom (52639132) Symptomatic menopausal or female climacteric states (627.2) Active confirmed Major Problem Postmenopausal atrophic vaginitis (02023347) Postmenopausal atrophic vaginitis (627.3) Active confirmed Diag Problem Osteoarthritis (862749871) Osteoarthrosis, unspecified whether generalized or localized, unspecified site (715.90) Active confirmed Major Problem 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 (756.12) Active confirmed Major Problem Gynecological examination normal (059167553311842) Routine gynecological examination (V72.31) Active confirmed Major Problem History of cerebrovascular accident without residual deficits (410504997) Personal history of transient ischemic attack [TIA], and cerebral infarction without residual deficits (V12.54) Active confirmed Major Problem Screening for malignant neoplasm of colon (736750696) Special screening for malignant neoplasms, colon (V76.51) Active confirmed Major Plan Of Treatment No Information Insurance Providers Payer Name Payer Address Payer Phone Subscriber Number Group Number Insured Name Patient Relationship to Insured Coverage Start Date Coverage End Date MEDICARE [address] [place], [place] [id number] WANDA QUINTERO Self - patient is the insured [facility]LY [facility] INDEMNITY PLAN [address] [place], [place] [id number] [phone] [id number] WANDA QUINTERO Self - patient is the insured
--- OUTSIDE RECORDS SUMMARY | 2024-11-25 12:46 | XMS_ITS ---
Author Organization [facility] Address [address] [facility] [place] [address] Care Team Providers Care Vacuum Cleaner Assembler Name Role Phone Mary Santana Primary Care Provider Hasmukh Blanco Unavailable [phone] Allergies Allergen (clinical drug ingredient) Drug/Non Drug [...] 08/04/2023 Encounters Encounter Location Date Provider [facility] [address] [address] 08/04/2023 Hasmukh Edmond Plan Of Treatment No Information Progress Notes * Getachew QUINTEROOB: [birth year] (84 yo F)Acc No.[id number]:08/04/2023 Progress Notes Patient:Maryjane BRAXTON Provider:?Hasmukh Edmond DPM :1940???Age:83 Y???Sex:Female D ate:08/04/2023 Address:[address] [place] [address] Dr luna, [facility] [address], [facility] Pcp:Mary Santana Subjective: * Chief Complaints: * [...] DPM Date:? 024 Generated for Suze soriano/Yael/Jayde on:?11/25/2024 12:45 PM EDT
--- OUTSIDE RECORDS SUMMARY | 2024-11-25 12:46 | XMS_ITS ---
Author Organization [facility] Address [address] [facility] [place] [address] Care Team Providers Care Seed Trucker Name Role Phone Mary Santana Primary Care Provider Hasmukh Blanco Unavailable [phone] Allergies Allergen (clinical drug ingredient) Drug/Non Drug [...] Status Risk Notes Problem Acquired hallux rigidus (7893439) Hallux rigidus, left foot (M20.22) Active confirmed Problem Acquired hammer toe of left foot (6297579213103 103) Other hammer toe(s) (acquired), left foot (M20.42) Active confirmed Vital Signs Height 4ft 9in in 10/27/2023 Weight 115 lbs 10/27/2023 BMI 24.88 kg/m2 10/27/2023 Encounters Encounter Location Date Provider Diagnosis [facility] [place] [address] [place] [address] 10/27/2023 Hasmukh Edmond Pain in left foot [...] * Getachew QUINTEROOB: [birth year] (83 yo F)Acc No.[id number]:10/27/2023 Progress Notes Patient:?Maryjane Quintero Provider:?Hasmukh Edmond DPM :1940???Age:83 Y???Sex:Female D ate:10/27/2023 Address:[address] [place] [address] Dr luna, [address], [id number] Pcp:Mary Santana Subjective: * Chief Complaints: * [...] ray : Foot, right 3V * Procedure Codes:?15463 X-RAY EXAM OF LEFT FOOT 3V, Modifiers: 26 , [id number] X-RAY EXAM OF RIGHT FOOT 3V, Modifiers: [...] Edmond DPM Date:? 024 Generated for Printi ng/Fawenceslaog/eTransmitting on:?11/25/2024 12:46 PM EDT History and Physical Notes * HPI (History [...] REFLEX: absent TINEL'S COMPRESSION: Negative tarsal isis evi, ankush pedis, and medial calcaneal nerves B/L [...]
--- OUTSIDE RECORDS SUMMARY | 2024-11-25 12:46 | XMS_ITS ---
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 Generated for Printi ng/Fawenceslaog/eTransmitting on:?11/25/2024 12:45 PM EDT
== END 2024-11-25 12:12 | disposition home or self-care (01) ==
LOC: HO.HMCFM 11:02
PROVIDERS: PCP Physician Assistant Medical; Visit Provider Physician Assistant Medical
DX: Z09 Encounter for follow-up examination after completed treatment for conditions other than malignant neoplasm (principal); W19.XXXA Unspecified fall, initial encounter; M15.0 Primary generalized (osteo)arthritis; I25.10 Atherosclerotic heart disease of native coronary artery without angina pectoris; I73.9 Peripheral vascular disease, unspecified; E78.5 Hyperlipidemia, unspecified; U07.1 COVID-19; R47.89 Other speech disturbances; R41.89 Other symptoms and signs involving cognitive functions and awareness; R53.1 Weakness; R49.9 Unspecified voice and resonance disorder; R25.1 Tremor, unspecified

== ENCOUNTER → 2024-11-25 11:01 | Outpatient (BNVA) | payer MEDICARE, OTHER, SELFPAY | PROVIDERS: PCP Physician Assistant Medical; Visit Provider Physician Assistant Medical | DX: Z13.89 Encounter for screening for other disorder (principal) ==

== ENCOUNTER 2024-11-25 12:01 | Outpatient (REF) | payer MEDICARE, OTHER, SELFPAY ==
--- OUTSIDE RECORDS SUMMARY | 2024-11-25 13:39 | XMS_ITS | Clinical Summary ---
Author Organization [facility] Address [address] [place] [address] Care Team Providers Care Food Truck Caterer Name Role Phone Skip Cardenas MD Primary [...] Description 12/06/2024 11:45 AM EDT Clinical Support [facility] [address] [place] [address] Vesta Kolb PA-C [address] [place] [address] [phone] Sammie Valdes Au.D [address] [place] [address] [phone] Health Maintenance Due Date Last Done Comments [...] age to complete this topic Insurance [address] [place] [id number] MEDICARE PART A & B [facility] MEDICARE [address] [place] [id number] Care Teams Food Truck Caterer Relationship Specialty Start Date End Date Skip Cardenas MD PCP - General
[2024-11-25 15:06] LABS: Cholesterol 117 mg/dL (<200); HDL Cholesterol 49 mg/dL (>40); LDL Cholesterol Calculated 44 mg/dL (<100); Triglycerides 124 mg/dL (<150)
[2024-11-27 03:29] LABS: Lyme Abs Screen <0.90 index
[2024-11-29 14:18] LABS: Vitamin D 25-OH, D2 <4 ng/mL; Vitamin D 25-OH, D3 25 ng/mL; Vitamin D 25-OH, Total 25 ng/mL (30-100)
== END 2024-11-25 12:02 | disposition home or self-care (01) ==
LOC: HO.WFDLDS 12:01
PROVIDERS: Visit Provider Physician Assistant Medical
DX: Z09 Encounter for follow-up examination after completed treatment for conditions other than malignant neoplasm (principal); M15.0 Primary generalized (osteo)arthritis; I25.10 Atherosclerotic heart disease of native coronary artery without angina pectoris; I73.9 Peripheral vascular disease, unspecified; E78.5 Hyperlipidemia, unspecified; U07.1 COVID-19; R47.89 Other speech disturbances; R41.89 Other symptoms and signs involving cognitive functions and awareness; R53.1 Weakness; R49.9 Unspecified voice and resonance disorder; R25.1 Tremor, unspecified; M85.80 Other specified disorders of bone density and structure, unspecified site; L89.309 Pressure ulcer of unspecified buttock, unspecified stage; I25.2 Old myocardial infarction; Z86.73 Personal history of transient ischemic attack (TIA), and cerebral infarction without residual deficits; Z91.81 History of falling; Z95.0 Presence of cardiac pacemaker
CPT/HCPCS: 36415; 80061; 82306; 82550; 86617; 86618; 96127; 99212

== ENCOUNTER 2025-01-27 14:16 | Outpatient (AMB) | payer MEDICARE, OTHER, SELFPAY ==
--- NOTE | 2025-01-27 14:19 | A.OFFPC_ITS ---
Vital Signs 01/27/25 14:30 01/27/25 14:34 Height 4 ft 7 in Weight 123 lb BMI 28.6 BP 108/62 108/58 L Blood Pressure Location Rt brachial Lt brachial Position Sitting Sitting Respiration 13 Pulse 78 Pulse Source Pulse Oximeter Temp 98.4 F Temp Source Temporal Artery Scan Pulse Oximetry (%) 95 Oxygen Delivery Method Room Air Intake Visit Reasons: hospital follow up /30 minute complex Intake Note: Maryjane presents in the office today for a hospital follow up. Allergies Penicillins (PENICILLINS) Allergy (Unknown, Verified 01/27/25 14:23) SWELLING doxycycline Adverse Reaction (Intermediate, Verified 01/27/25 14:23) Vomiting Tobacco use date assessed: 01/27/25 Dental Screening Dental Screen Date: 01/27/25 Did you have a dental visit in the last 12 months?: Yes Did you have a dental problem in the last 6 months where you did not have access to dental care?: No Was dental information given to patient?: Patient has dentist HPI HPI Comments History of Present Illness Details This is an 84-year-old female with a past medical history of NSTEMI 2024, ischemic stroke and recurrent TIAs, peripheral vascular disease and recurrent cellulitis of the lower extremities, Parkinson's, chronic back pain on opiates, skin cancer and 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 She is here with her healthcare proxy, Marie, and ocular care aide, Mela. Marie had contacted the office regarding concerns about lower extremity cellulitis, and she activated her prescription for cephalexin x 21 days which worked historically for her, but despite taking this for nearly 3 weeks symptoms did not resolve. Ultrasound was requested due to persistent edema of the right lower extremity, and it was negative for thrombus. She was admitted 01/08/25 to 01/10/25 at [facility] for acute cellulitis of the right lower extremity which failed outpatient antibiotics. CT of the lower extremity showed diffuse subcutaneous fatty stranding without evidence of osteomyelitis. White blood cell count was normal at 5800. She was afebrile. She was treated with vancomycin. Placed on probiotic. She was discharged on Bactrim twice daily for 7 days to complete full 10 day course of antibiotics. Lyrica 25 mg daily was added for neuropathic pain. She is unsure this is helping. In the past it was discontinued since it was ineffective. She was instructed to continue Lasix 60 mg daily. Potassium at hospital 3.8. Not currently on a supplement. Her usual weight is around 115 lb. On her scale at home today she was 118 lb. 123 lb on the office scale today. Today they are concerned about a wound with redness around it on the right leg, persistent edema and erythema of the legs despite Lasix and the appearance of some of the ulcers that have healed on the right camejo. She has an upcoming appointment with Dermatology tomorrow at 2:15pm. Vascular surgery-She has a longstanding history of PVD and lower extremity edema. She is followed by Dr. Medrano. Parkinson's symptoms-followed by [facility] Neurology and on carbidopa levodopa now. They feel that this is helping. Dr. Heard is her manager military. Her last appointment was in August. Her next appointment is in March. She denies chest pain or shortness of breath. She has chronic pressure ulcers on her buttocks and back that are treated with foam padding and zinc oxide/and or triple antibiotic ointment. She is very frail and bony. She has a hospital bed with air mattress. Chronic pain is managed by Dr. Baugh. She has a history of multiple joint replacement surgeries. She has a compression fracture from an old injury. She is on opioids chronically. She was previously on gabapentin which was discontinued due to causing memory issues. She has carpal tunnel syndrome. ROS: Constitutional: Denies weight loss, night sweats, fevers or chills. Respiratory: No cough. No shortness a breath. Cardiovascular: No chest pain or palpitations. +lower extremity edema right greater than left Gastrointestinal: No nausea, vomiting or abdominal pain Neurologic: No headache, dizziness, syncope, seizures Musculoskeletal: chronic pain Skin: see HPI Physical exam: Constitutional: Alert, in no distress. In wheelchair. Voice is improved today since starting carbidopa levodopa. Head: Normocephalic. Neck: Supple, Full range of motion. No lymphadenopathy. Respiratory: Clear to auscultation. Cardiovascular: S1 S2 regular. No murmurs. Neurologic:?Alert and oriented x 3, clear speech, no facial drooping, moves extremities spontaneously. Lower extremities: Intact peripheral pulses. There is a stage II ulcer approximately 1 cm on the lateral side of the right lower leg. When the bandage was removed it had yellowish brown discharge on it. The surrounding skin is erythematous and tender. There are spots of erythema and flaking skin on both lower legs. There is dried blood and scabs on the anterior right camejo, and there is a grayish appearance of the surrounding skin. There is erythema of the anteromedial left lower leg. There is bilateral lower extremity edema with the right being worse than the left. Back: There is a stage I pressure ulcer on the mid back below the bra line. [facility] Medical History (Updated 01/27/25 @ 17:27 by BORIS Abreu) Parkinsons disease Chronic diastolic heart failure Positive KRISTI (antinuclear antibody) COVID-19 Word finding difficulty Cognitive decline Weakness Ataxia Change in voice Tremor Fall Hospital discharge follow-up Bilateral lower leg cellulitis Paresthesias Physical deconditioning Osteoarthritis, multiple sites Pressure ulcers of skin of multiple topographic sites Risk for falls Coronary artery disease Osteoporosis PVD (peripheral vascular disease) PMR (polymyalgia rheumatica) Pacemaker Chronic neck pain Liver cyst Hyperlipidemia LDL goal <70 History of recurrent TIAs History of IA (myocardial infarction) History of ischemic stroke History of anemia Compression fracture of spine Chronic pain syndrome Candidal intertrigo SCCA (squamous cell carcinoma) of skin BCC (basal cell carcinoma of skin) AV block, 3rd degree Surgical History (Updated 01/11/24 @ 11:55 by BORIS Abreu) History of elbow surgery History of bunionectomy S/p bilateral shoulder joint replacement History of left hip replacement History of bilateral knee replacement Social History (Updated 01/27/25 @ 14:29 by Indigo Nieto MA) Housing: Condominium Alcohol intake: never Patient Tobacco Use Status: Never used Tobacco e-Cigarette/Vaping Use: Never Used Second Hand Smoke Exposure: Yes service: No Current occupational status: retired Current occupational exposures/hazards: No Cognitive needs: No Hearing needs: No Vision needs: No Questionnaire Thrive Questionnaire Date Thrive assessed: 08/02/24 I am a: Parent/Caregiver What is your living situation today?: I have a steady place to live Within the past 12 months, did the food you bought not last and you didn't have the money to get more?: I choose not to answer this question Within the past 12 months, did you worry whether your food would run out before you got money to buy more?: I choose not to answer this question Do you have trouble paying for medicines?: I choose not to answer this question Do you have trouble getting transportation to medical appointments?: I choose not to answer this question Do you have trouble paying your heating and electricity bill?: I choose not to answer this question Do you have trouble taking care of your child, family member or friend?: I choose not to answer this question Do you have trouble with day-to-day activities such as bathing, preparing meals, shopping, managing finances, etc.?: I choose not to answer this question Are you currently unemployed and looking for a job?: I choose not to answer this question Are you interested in more education?: I choose not to answer this question Please select the resources that you would like help with: None Currently or been in a relationship where the following occur: I choose not to answer THRIVE Score: 0 HOLLI-7 AMB Questionnaire HOLLI-7 Date HOLLI - 7 assessed: 11/25/24 Source: Developed by Drs. Cooper Oreilly, Alisia Armenta, Jose Juan Bustillo and colleagues, with an educational nella from [employer]. Physical exam (Primary Care) Vital Signs: Last Vital Signs Temp 98.4 F 01/27/25 14:30 Pulse 78 01/27/25 14:30 Resp 13 01/27/25 14:30 BP 108/58 L 01/27/25 14:34 Pulse Ox 95 01/27/25 14:30 Oxygen Delivery Method Room Air 01/27/25 14:30 BMI result Body Mass Index 28.6 Tobacco/Smoking Status: Tobacco use Status Tobacco use date assessed 01/27/25 01/27/25 14:34 Patient Tobacco Use Status Never used Tobacco 01/27/25 14:29 e-Cigarette/Vaping Use Never Used 01/27/25 14:29 Thrive Assessment: Date of Thrive Assessment Date Thrive assessed 08/02/24 01/27/25 14:21 Currently or been in a relationship where the following occur: I choose not to answer Coding Level of Care Code Est Pt Level 5 (38134) Complex EM visit Add On G2211 Diagnoses Hospital discharge follow-up Z09 Bilateral lower leg cellulitis L03.116; L03.115 PVD (peripheral vascular disease) I73.9 Parkinsons disease G20.A1 Time Spent (min) 54 Comment Direct patient care, coordinating care, chart review, completing documentation Assessment & Plan Assessment & Plan (1) Hospital discharge follow-up: Code(s): Z09 - Encounter for follow-up examination after completed treatment for conditions other than malignant neoplasm Category: Medical (2) Bilateral lower leg cellulitis: Code(s): L03.116 - Cellulitis of left lower limb; L03.115 - Cellulitis of right lower limb Category: Medical (3) PVD (peripheral vascular disease): Code(s): I73.9 - Peripheral vascular disease, unspecified Category: Medical (4) Parkinsons disease: Code(s): G20.A1 - Parkinson's disease without dyskinesia, without mention of fluctuations Category: Medical Plan The patient has recurrent cellulitis and edema related to chronic diastolic heart failure and venous stasis dermatitis and venous insufficiency. Starting Bactrim 1 pill twice daily for 7 days. Take with food and have probiotics. Increase Lasix to 60 mg in the morning and 20 mg at 11am or 12 pm for the next 5 days then decrease to 60 mg in the morning. Start potassium 40 mEq daily while on higher dose of Lasix. Check BMP on day 3. Order [facility] to [facility]. Stop Lyrica which can cause more fluid retention, and it is not effective for her. She has to remain on the calcium channel ag due to Raynaud's. Keep legs elevated. Use compression stockings. Contacted vascular surgery regarding discoloration on anterior right camejo. They were able to schedule her an appointment tomorrow 08:15am. I spoke to Marie, and they will go to this appointment. She will see Dermatology tomorrow afternoon. Warning signs warranting ER evaluation reviewed. Continue carbidopa levodopa. They notice improvement, and her voice is stronger today. She has a follow up with Neurology. Follow up in 1-2 weeks for re-evaluation. Orders: Orders Basic Metabolic Panel 3 Days I50.32 - Chronic diastolic (congestive) heart failure Medications: New sulfamethoxazole-trimethoprim 800-160 mg (Bactrim DS) 1 tab PO BID 14 tabs 0RF furosemide (Lasix) orally daily; Take 60 mg every morning and 20 mg at noon. 120 tabs 0RF potassium chloride ER (K-Tab) 40 mEq (2 x 20 mEq) PO DAILY 60 tabs 0RF
[2025-01-27 14:30] VITALS: BP 108/62; PULSE 78; RESP 13; TEMP 36.9; O2SAT 95; BMI 28.6
[2025-01-27 14:34] VITALS: BP 108/58
--- OUTSIDE RECORDS SUMMARY | 2025-01-27 14:43 | XMS_ITS | Clinical Summary ---
Author Organization [facility] Address [address] [place] [address] Care Team Providers Care Tin Can Feeder Name Role Phone Mary Santana Primary Care Provider [phone] Allergies Active Allergy Reactions Criticality Noted Date Comments Doxycycline GI Intolerance/Nausea/Vomit ing,Nausea And Vomiting High 07/05/2016 states volatile vomiting after the 1st pill Gabapentin Unknown/Patient and Family Unable to Define Medium 11/05/2024 Penicillins Swelling,Hives Medium 06/18/2013 Medications albuterol (PROVENTIL) (0.083%) 2.5 mg/3 mL nebulizer solution 1 vial inhale orally via nebulizer every 4 hours as needed for wheezing/SOB AND 1 vial inhale orally via nebulizer four times a day 5 Active aspirin 81 MG chewable tablet Give 1 tablet by mouth one time a day Monitor for bleeding, bruising, and black tarry stools 5 Active atorvastatin (LIPITOR) 40 MG tablet Give 40 mg by mouth at bedtime for Hyperlipidemia 5 Active cephalexin (KEFLEX) 500 MG capsule Take 500 mg by mouth. 4 Active furosemide (LASIX) 20 MG tablet Give 3 tablet by mouth one time a day 5 Active NIFEdipine ER (ADALAT CC) 30 MG 24 hr tablet Give 1 tablet by mouth one time a day 5 Active Active Problems No known active problems Encounters Date Type Department Care Team Description 12/06/2024 12:15 PM EDT Clinical Support [facility] [address] [address] Vesta Kolb PA-C Dysphonia (Primary Dx); Presbylarynx from Last 3 Months Social History Tobacco Use Types Packs/Day Years Used Date Smoking Tobacco: Never Smokeless Tobacco: Never Tobacco Cessation:Counseling Given: Not Answered Alcohol Use Standard Drinks/Week Comments Never 0 (1 standard drink = 0.6 oz pur e alcohol) Comments Unknown Sex and Gender Information Value Date Recorded Sex Assigned at Female 10/08/2024 11:43 AM EDT Legal Sex Female 6:24 PM EST Gender Identity Female 10/08/2024 11:43 AM EDT Sexual Orientation Heterosexual (straight) 10/08 11:43 AM EDT Last Filed Vital Signs Vital Sign Reading Time Taken Comments Blood Pressure - - Pulse - - Temperature - - Respiratory Rate - - Oxygen Saturation - - Inhaled Oxygen Concentration - - Weight 50.8 kg (112 lb) 12/06/2024 12:14 PM EDT Height 147.3 cm (4' 10 ) 12/06/2024 12:14 PM EDT Body Mass Index 23.41 12/06/2024 12:14 PM EDT Plan of Treatment Health Maintenance Due Date Last Done Comments DTaP/Tdap/Td Vaccines (1 - Tdap) 1957 Pneumococcal Vaccines 50+ (1 of 1 - PCV) 01/19/1988 Zoster (Shingles) Vaccine (1 of 2) 01/19/1988 DXA Bone Density (Females,Ages 65 and older) 2003 RSV Vaccine 60 years and older and Patients (1 - 1-dose 75+ series) 2013 COVID-19 Vaccine ( - 2023- season) 2024 04/18/2024, 05/09/2022, 08/10/2021, Additional history exists Influenza Vaccine 02/21/2025 04/18/2024, , 05/09/2022, Additional history exists Hepatitis B Vaccines Aged Out No long er eligible based on patient's age to complete this topic Insurance MEDICARE PART A & B [facility] BL[facility] CROSS MEDIBLUE [place] MEDICARE Care Teams Tin Can Feeder Relationship Specialty Start Date End Date Mary Santana PA [address] [place] [address] [phone] PCP - General General Medicine 12/06/24
== END 2025-01-27 15:16 | disposition home or self-care (01) ==
LOC: HO.HMCFM 14:17
PROVIDERS: PCP Physician Assistant Medical; Visit Provider Physician Assistant Medical
DX: G20.A1 Parkinson's disease without dyskinesia, without mention of fluctuations (principal); Z09 Encounter for follow-up examination after completed treatment for conditions other than malignant neoplasm; L03.116 Cellulitis of left lower limb; L03.115 Cellulitis of right lower limb; I73.9 Peripheral vascular disease, unspecified

== ENCOUNTER → 2025-01-27 14:16 | Outpatient (BNVA) | payer MEDICARE, OTHER, SELFPAY | PROVIDERS: PCP Physician Assistant Medical; Visit Provider Physician Assistant Medical | DX: Z09 Encounter for follow-up examination after completed treatment for conditions other than malignant neoplasm (principal); L03.116 Cellulitis of left lower limb; L03.115 Cellulitis of right lower limb; I73.9 Peripheral vascular disease, unspecified; G20.A1 Parkinson's disease without dyskinesia, without mention of fluctuations; I25.2 Old myocardial infarction; Z86.73 Personal history of transient ischemic attack (TIA), and cerebral infarction without residual deficits | CPT/HCPCS: 99212 ==

== ENCOUNTER 2025-02-13 13:10 | Outpatient (AMB) | payer MEDICARE, OTHER, SELFPAY ==
--- OUTSIDE RECORDS SUMMARY | 2025-02-13 13:22 | XMS_ITS | Patient Health Record ---
Author Organization [employer] Address [address] [place] [address] Care Team Providers Care Software Engineer Sales Name Role Phone Zarina Hendrickson Unavailable [phone] Reason For Referral No Information Medications Medication SIG (Take, Route, Frequency, Duration) Notes Start Date End Date Status Percocet 5-325 1 ORAL every six perez rs; Duration: [facility] 07/15/2013 Active predniSONE 1 ORAL daily; Durati on: - [facility] 07/15/2013 Active Soma 1 ORAL FOUR TIMES DA MAHESH; Duration: [facility] 07/15/2013 Active Aspirin EC 81MG 1 ORAL daily; Durati on: - [facility] 07/15/2013 Active Estrace Vaginal Cream 42.5GM Vaginal 1GM 2X A WEEK; Duration: - [facility] 07/15/2013 Active Problems Problem Type SNOMED Code ICD Code Onset Dates Problem Status W/U Status Risk Notes Problem Menopausal symptom (85503683) Symptomatic menopausal or female climacteric states (627.2) Active confirmed Major Problem Postmenopausal atrophic vaginitis (45128643) Postmenopausal atrophic vaginitis (627.3) Active confirmed Diag Problem Osteoarthritis (369471383) Osteoarthrosis, unspecified whether generalized or localized, unspecified site (715.90) Active confirmed Major Problem 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) Active confirmed Major Problem Gynecological examination normal (746241185294920) Routine gynecological examination (V72.31) Active confirmed Major Problem History of cerebrovascular accident without residual deficits (655452222) Personal history of transient ischemic attack [TIA], and cerebral infarction without residual deficits (V12.54) Active confirmed Major Problem Screening for malignant neoplasm of colon (868914198) Special screening for malignant neoplasms, colon (V76.51) Active confirmed Major Plan Of Treatment No Information Insurance Providers Payer Name Payer Address Payer Phone Subscriber Number Group Number Insured Name Patient Relationship to Insured Coverage Start Date Coverage End Date MEDICARE [address] [place], [place] [id number] WANDA QUINTERO Self - patient is the insured [facility] INDEMNITY PLAN [address] [place], [place] [id number] WANDA QUINTERO Self - patient is the insured
--- OUTSIDE RECORDS SUMMARY | 2025-02-13 13:22 | XMS_ITS | Clinical Summary ---
Author Organization [facility] Address [address] [place] [address] Care Team Providers Care Bobbin Marker Name Role Phone Mary Santana Primary Care Provider [phone] Allergies Active Allergy Reactions Criticality Noted Date [...] Description 12/06/2024 12:15 PM EDT Clinical Support [facility] [address] [address] Vesta Kolb PA-C Dysphonia (Primary Dx); Presbylarynx [...] topic Insurance MEDICARE PART A & B [facility] BLUE CROSS MEDIBLUE MGD MEDICARE Care Teams Bobbin Marker Relationship Specialty Start Date End Date Mary Santana PA [address] [place] [address] [id number] PCP - General General Medicine 12/06/24
--- OUTSIDE RECORDS SUMMARY | 2025-02-13 13:22 | XMS_ITS | Patient Health Record ---
Author Organization [facility] Address [address] [place] [address] Care Team Providers Care Payroll Auditor Name Role Phone Mary Santana Primary Care Provider Hasmukh Blanco Unavailable [phone] Allergies Allergen (clinical drug ingredient) Drug/Non Drug [...] MG 1 tablet Oral ly Once a day; Duration: 30 day(s) Active Vitamin D3 Active Voltaren 1 % as directed Externally 10/27/2023 Active amLODIPine Besylate 5 MG 1 tablet Orally Once a day; Duration: 30 day(s) Active OxyCONTIN 10 MG 1 [...] Problem Acquired hammer toe of left foot (5613493874008 103) Other hammer toe(s) (acquired), left foot (M20.42) Active confirmed Plan Of Treatment Pending Test Test Name Order Date X ray : Foot, left 3V 10/27/2023 X ray : Foot, right 3V 10/27/2023 Insurance Providers Payer Name Payer Address Payer Phone Subscriber Number Group Number Insured Name Patient Relationship to Insured Coverage Start Date Coverage End Date Medicare National Govt [facility] [address] [place] [address] [id number] Maryjane Hunt Self - patient is the insured [employer] [address] [place] [address] [id number] Maryjane Hunt Self - patient is the [...]
--- OUTSIDE RECORDS SUMMARY | 2025-02-13 13:22 | XMS_ITS ---
Author Name [facility] Organization Unknown History of Medication Use Medication Directions Dispensed Refills Start Date End Date Stat us atorvastatin (LIPITOR) 40 MG tablet Give 40 mg by mouth at bedtime for Hyperlipidemia 11/13/2024 active aspirin 81 MG chewable tablet Give 1 tablet by mouth one time a day Monitor for bleeding, bruising, and black tarry stools 11/06/2024 active NIFEdipine ER (ADALAT CC) 30 MG 24 hr tablet Give 1 tablet by mouth one time a day 11/06/2024 active albuterol (PROVENTIL) (0.083%) 2.5 mg/3 mL nebulizer solution 1 vial inhale orally via nebulizer every 4 hours as needed for wheezing/SOB AND 1 vial inhale orally via nebulizer four times a day 11/05/2024 active furosemide (LASIX) 20 MG tablet Give 3 tablet by mouth one time a day 11/03/2024 active cephalexin (KEFLEX) 500 MG capsule Take 500 mg by mouth. 06/23/2024 active Allergies Allergen Reaction Severity Comment Documented Date Source Statu s GABAPENTIN UNKNOWN/PATIENT AND FAMILY UNABLE TO DEFINE 11/05/2024 [facility] active DOXYCYCLINE NAUSEA AND VOMITING states volatile vomiting after the 1st pill 07/05/2016 [facility] active PENICILLINS HIVES 06/18/2013 [facility] active Problems Problem Status Onset Date Problem Type Date of Resoluti on Source Dysphonia active EncounterDiagnosisAct [facility]byl[facility] Encounters Encounter Type Encounter Reason Primary Diagnosis Location Date Ambulatory throat/voice concerns throat/voice concerns [facility] 12/06/2024 Ambulatory [facility] 12/06/2024 Care Team Organization Name Specialty Phone Email Start Date End Da te [facility] 12/06/2024 01/04/2025 [facility] 10/08/2024
--- NOTE | 2025-02-13 13:31 | A.OFFPC_ITS ---
Vital Signs 02/13/25 13:40 Height 4 ft 7 in Weight 117 lb BMI 27.2 BP 107/51 L Blood Pressure Location Lt brachial Position Sitting Respiration 16 Pulse 93 Pulse Source Pulse Oximeter Temp 98.1 F Temp Source Oral Pulse Oximetry (%) 97 Oxygen Delivery Method Room Air Intake Visit Reasons: 30 minutes follow up complex Intake Note: patient here for 30 min follow up complex Account Development Specialist Required: No Is last menstrual period known: No Post menopausal: No Patient : No Allergies Penicillins (PENICILLINS) Allergy (Unknown, Verified 02/13/25 13:36) SWELLING doxycycline Adverse Reaction (Intermediate, Verified 02/13/25 13:36) Vomiting Tobacco use date assessed: 02/13/25 Fall risk assessment: No Falls in past year Last assessed Fall Risk: 02/13/25 Dental Screening Dental Screen Date: 02/13/25 Did you have a dental visit in the last 12 months?: No Did you have a dental problem in the last 6 months where you did not have access to dental care?: No Was dental information given to patient?: No HPI HPI Comments History of Present Illness Details This is an 85-year-old female with a past medical history of NSTEMI 2024, ischemic stroke and recurrent TIAs, peripheral vascular disease and recurrent cellulitis of the lower extremities, Parkinson's, chronic back pain on opiates, skin cancer and 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 She is here with her adult day care worker, Mela, and her healthcare proxy, Marie, is on the phone. She is going to wound care in [place] once a week now. Care tenders his doing dressing changes twice weekly. She has 2 venous ulcers on her right lower extremity. She was just seen Monday, and there was no evidence of residual infection after completing the course of Bactrim from our appointment. She did hit her right arm on an elevator, and she has thin skin and has 2 small wounds that are also healing. They are applying antibiotic ointment, Xeroform and gauze. Her furosemide was temporarily increased to 80 mg total a day for 5 days. She was placed on potassium short term with this. Now she is on 60 mg every morning. Her weight is down from 123 lb to 117 lb. Compression dressings have been very helpful on the lower extremities. DAWSON was done at Wound Care, and she has worse circulation on the left than the right. Denies fevers or chills. Vascular surgery-She has a longstanding history of PVD and lower extremity edema. She is followed by Dr. Medrano. Parkinson's symptoms-followed by [facility] and on carbidopa levodopa now. They feel that this is helping. Dr. Heard is her cloth bolt bander. Her last appointment was in August. Her next appointment is in March. She denies chest pain or shortness of breath. She has a history of recurrent pressure ulcers on her buttocks and back that are treated with foam padding and zinc oxide/and or triple antibiotic ointment. She is very frail and bony. She has a hospital bed with air mattress. Chronic pain is managed by Dr. Baugh. She has a history of multiple joint replacement surgeries. She has a compression fracture from an old injury. She is on opioids chronically. She was previously on gabapentin which was discontinued due to causing memory issues. She has carpal tunnel syndrome. Lyrica was ineffective. ROS: Constitutional: Denies weight loss, night sweats, fevers or chills. Respiratory: No cough. No shortness a breath. Cardiovascular: No chest pain or palpitations. + chronic lower extremity edema right greater than left Gastrointestinal: No nausea, vomiting or abdominal pain Neurologic: No headache, dizziness, syncope, seizures Musculoskeletal: chronic pain Skin: see HPI Physical exam: Constitutional: Alert, in no distress. In wheelchair. Head: Normocephalic. Neck: Supple, Full range of motion. No lymphadenopathy. Respiratory: Clear to auscultation. Cardiovascular: S1 S2 regular. No murmurs. Neurologic:?Alert and oriented x 3, clear speech, no facial drooping, moves e xtremities spontaneously. Lower extremities: Patient's legs are wrapped, and they deferred removing the bandages since they were checked by wound care on Monday. Lower extremity edema significantly improved bilaterally. Skin: There are 2 shallow approximately 2 cm flap wounds on the right forearm with no redness or swelling or discharge. [facility] Medical History (Updated 02/13/25 @ 14:15 by BORIS Abreu) Venous stasis ulcers Parkinsons disease Chronic diastolic heart failure Positive KRISTI (antinuclear antibody) COVID-19 Word finding difficulty Cognitive decline Weakness Ataxia Change in voice Tremor Fall Hospital discharge follow-up Bilateral lower leg cellulitis Paresthesias Physical deconditioning Osteoarthritis, multiple sites Pressure ulcers of skin of multiple topographic sites Risk for falls Coronary artery disease Osteoporosis PVD (peripheral vascular disease) PMR (polymyalgia rheumatica) Pacemaker Chronic neck pain Liver cyst Hyperlipidemia LDL goal <70 History of recurrent TIAs History of [place] (myocardial infarction) History of ischemic stroke History of anemia Compression fracture of spine Chronic pain syndrome Candidal intertrigo SCCA (squamous cell carcinoma) of skin BCC (basal cell carcinoma of skin) AV block, 3rd degree Surgical History (Updated 01/11/24 @ 11:55 by BORIS Abreu) History of elbow surgery History of bunionectomy S/p bilateral shoulder joint replacement History of left hip replacement History of bilateral knee replacement Social History (Updated 01/27/25 @ 14:29 by Indigo Nieto MA) Housing: Condominium Alcohol intake: never Patient Tobacco Use Status: Never used Tobacco e-Cigarette/Vaping Use: Never Used Second Hand Smoke Exposure: Yes service: No Current occupational status: retired Current occupational exposures/hazards: No Cognitive needs: No Hearing needs: No Vision needs: No Questionnaire Thrive Questionnaire Date Thrive assessed: 08/02/24 I am a: Parent/Caregiver What is your living situation today?: I have a steady place to live Within the past 12 months, did the food you bought not last and you didn't have the money to get more?: I choose not to answer this question Within the past 12 months, did you worry whether your food would run out before you got money to buy more?: I choose not to answer this question Do you have trouble paying for medicines?: I choose not to answer this question Do you have trouble getting transportation to medical appointments?: I choose not to answer this question Do you have trouble paying your heating and electricity bill?: I choose not to answer this question Do you have trouble taking care of your child, family member or friend?: I choose not to answer this question Do you have trouble with day-to-day activities such as bathing, preparing meals, shopping, managing finances, etc.?: I choose not to answer this question Are you currently unemployed and looking for a job?: I choose not to answer this question Are you interested in more education?: I choose not to answer this question Please select the resources that you would like help with: None Currently or been in a relationship where the following occur: I choose not to answer THRIVE Score: 0 HOLLI-7 AMB Questionnaire HOLLI-7 Date HOLLI - 7 assessed: 11/25/24 Source: Developed by Drs. Cooper Oreilly, Alisia Armenta, Jose Juan Bustillo and colleagues, with an educational nella from [employer]. Physical exam (Primary Care) Vital Signs: Last Vital Signs Temp 98.1 F 02/13/25 13:40 Pulse 93 02/13/25 13:40 Resp 16 02/13/25 13:40 BP 107/51 L 02/13/25 13:40 Pulse Ox 97 02/13/25 13:40 Oxygen Delivery Method Room Air 02/13/25 13:40 BMI result Body Mass Index 27.2 Tobacco/Smoking Status: Tobacco use Status Tobacco use date assessed 02/13/25 02/13/25 13:43 Patient Tobacco Use Status Never used Tobacco 02/13/25 13:35 e-Cigarette/Vaping Use Never Used 02/13/25 13:35 Thrive Assessment: Date of Thrive Assessment Date Thrive assessed 08/02/24 02/13/25 13:35 Currently or been in a relationship where the following occur: I choose not to answer Coding Level of Care Code Est Pt Level 4 (85994) Complex EM visit Add On G2211 Diagnoses Bilateral lower leg cellulitis L03.116; L03.115 PVD (peripheral vascular disease) I73.9 Parkinsons disease G20.A1 Venous stasis ulcers I83.009; L97.909 Assessment & Plan Assessment & Plan (1) Bilateral lower leg cellulitis: Code(s): L03.116 - Cellulitis of left lower limb; L03.115 - Cellulitis of right lower limb Category: Medical Plan: Resolved. Saw Wound Care on Monday who recommended no further antibiotics at this time. (2) PVD (peripheral vascular disease): Code(s): I73.9 - Peripheral vascular disease, unspecified Category: Medical (3) Parkinsons disease: Code(s): G20.A1 - Parkinson's disease without dyskinesia, without mention of fluctuations Category: Medical (4) Venous stasis ulcers: Code(s): I83.009 - Varicose veins of unspecified lower extremity with ulcer of unspecified site; L97.909 - Non-pressure chronic ulcer of unspecified part of unspecified lower leg with unspecified severity Category: Medical Plan Interval improvement in lower extremity edema. Weight has decreased. Stop potassium which was added when she was on the increased dose of Lasix. Continue Lasix 60 mg every morning. Remain off Lyrica which was ineffective and can cause more fluid retention. Keep legs elevated. She is using compression dressings. Warning signs warranting ER evaluation reviewed. Continue carbidopa levodopa. She has a follow up scheduled with Neurology. Follow up in 6 weeks for re-evaluation. Medications: Discontinued potassium chloride ER (K-Tab) Discontinued Reason: Doctor's Order 40 mEq (2 x 20 mEq) PO DAILY 60 tabs 0RF
[2025-02-13 13:40] VITALS: BP 107/51; PULSE 93; RESP 16; TEMP 36.7; O2SAT 97; BMI 27.2
== END 2025-02-13 14:09 | disposition home or self-care (01) ==
LOC: HO.HMCFM 13:11
PROVIDERS: PCP Physician Assistant Medical; Visit Provider Physician Assistant Medical
DX: G20.A1 Parkinson's disease without dyskinesia, without mention of fluctuations (principal); I83.009 Varicose veins of unspecified lower extremity with ulcer of unspecified site; L97.909 Non-pressure chronic ulcer of unspecified part of unspecified lower leg with unspecified severity; L03.116 Cellulitis of left lower limb; L03.115 Cellulitis of right lower limb; I73.9 Peripheral vascular disease, unspecified

== ENCOUNTER → 2025-02-13 13:10 | Outpatient (BNVA) | payer MEDICARE, OTHER, SELFPAY | PROVIDERS: PCP Physician Assistant Medical; Visit Provider Physician Assistant Medical | DX: I73.9 Peripheral vascular disease, unspecified (principal); G20.A1 Parkinson's disease without dyskinesia, without mention of fluctuations; I83.009 Varicose veins of unspecified lower extremity with ulcer of unspecified site; L97.909 Non-pressure chronic ulcer of unspecified part of unspecified lower leg with unspecified severity; G89.29 Other chronic pain; Z87.2 Personal history of diseases of the skin and subcutaneous tissue; I25.2 Old myocardial infarction; Z86.73 Personal history of transient ischemic attack (TIA), and cerebral infarction without residual deficits; Z79.891 Long term (current) use of opiate analgesic; Z79.899 Other long term (current) drug therapy | CPT/HCPCS: 99212 ==

== ENCOUNTER 2025-03-27 14:12 | Outpatient (AMB) | payer MEDICARE, OTHER, SELFPAY ==
--- OUTSIDE RECORDS SUMMARY | 2025-02-19 10:30 | XMS_ITS ---
Author Organization [facility] Address [address] [facility] [address] [place] [address] Care Team Providers Care Pencils Washer Name Role Phone Mary Santana PA-C Primary Care Provider Hussain Gallego Unavailable [phone] Medications Medication SIG (Take, Route, Frequency, Duration) Notes Start Date End Date Status Carbidopa-Levodopa 25-100 MG 1 tablet as needed Orally Two times a Week Active Calcium Carbonate 600 MG 1 tablet with f ood Orally Twice a day Not-Taking Ciprofloxacin HCl 500 MG 1 tablet Orally every 12 hrs Not-Taking Pregabalin 25 MG 1 capsule Orally Onc e a day Not-Taking Aspirin 81 81 MG 1 tablet Orally Once a day Active Furosemide 20 MG 3 tablets Orally Onc e a day Active NIFEdipine ER 30 MG 1 tablet on an empty stomach Orally Once a day Active oxyCODONE HCl 10 MG 1 tablet as needed Orally every 6 hrs Active Atorvastatin Calcium 40 MG 1 tablet Orally Once a day Active Acetaminophen 325 MG 1 tablet as needed Orally every 6 hrs Active OxyCONTIN 20 MG 1 tablet Orally ever y 12 hrs Active Latanoprost 0.005 % 1 drop into affected eye in the evening Ophthalmic Once a day Active Multivitamin - 1 tablet Orally Once a day Active Colace 100 MG 1 capsule as needed Orally Once a day Active Soma 350 MG 1 tablet as needed Orally Three times a day Active PreserVision AREDS - as directed Orally Active Ciprofloxacin HCl 500 MG 1 tablet Orally every 12 hrs; Duration: 7 days 02/17/2025 02/24/2025 Active Encounters Encounter Location Date Provider Diagnosis [facility] [address] [facility] [address] [place] [address] 02/19/2025 Hussain Hathaway Plan Of Treatment No Information Progress Notes * Getachew QUINTEROOB: [birth year] (85 yo F)Acc No.[id number]:02/19/2025 Nurse Visit Patient: Maryjane ROMANO Provider: Renzo Hathaway NP :1940 A ge:85 Y S ex:Female Date:02/19/2025 Address:[address] [place], [place] [id number] Pcp:Mary Santana PA-C Subjective: * Chief Complaints: * * Medical History: * Medications: T aking PreserVision AREDS - Capsule as directed Orally , Taking Colace 100 MG Capsule 1 capsule as needed Orally Once a day , Taking Multivitamin - Tablet 1 tablet Orally Once a day , Taking Latanoprost 0.005 % Solution 1 drop into affected eye in the evening Ophthalmic Once a day , Taking OxyCONTIN 20 MG Tablet ER 12 Hour Abuse-Deterrent 1 tablet Orally every 12 hrs , Taking Soma 350 MG Tablet 1 tablet as needed Orally Three times a day , Taking Acetaminophen 325 MG Tablet 1 tablet as needed Orally every 6 hrs , Taking Atorvastatin Calcium 40 MG Tablet 1 tablet Orally Once a day , Taking oxyCODONE HCl 10 MG Tablet 1 tablet as needed Orally every 6 hrs , Taking NIFEdipine ER 30 MG Tablet Extended Release 24 Hour 1 tablet on an empty stomach Orally Once a day , Taking Furosemide 20 MG Tablet 3 tablets Orally Once a day , Taking Carbidopa-Levodopa 25-100 MG Tablet 1 tablet as needed Orally Two times a Week , Taking Aspirin 81 81 MG Tablet Delayed Release 1 tablet Orally Once a day , Taking Ciprofloxacin HCl 500 MG Tablet 1 tablet Orally every 12 hrs , stop date 02/24/2025, Not-Taking Pregabalin 25 MG Capsule 1 capsule Orally Once a day , Not-Taking Ciprofloxacin HCl 500 MG Tablet 1 tablet Orally every 12 hrs , Not- Taking Calcium Carbonate 600 MG Tablet 1 tablet with food Orally Twice a day Objective: * Vitals: Assessment: Plan: * Treatment: * Billing Information: * Visit Code: * Procedure Codes: * Electronic signature of Varghese Hathaway NP on 03/27/2025 at 03:30 PM EDT Sign off status: Pending * Provider: Renzo Hathaway NP Date: 02/19/2025 Generated for Suze soriano/Yael/Jayde on: 0 03/27/2025 03:30 PM EDT
--- OUTSIDE RECORDS SUMMARY | 2025-02-26 10:30 | XMS_ITS ---
Author Organization [facility] Address [address] [facility] [address] [place] [address] Care Team Providers [employer] Executive Director Name Role Phone Mary Santana PA-C Primary Care Provider Hussain Gallego Unavailable [phone] Aletha Chadwick Unavailable [phone] Encounters Encounter Location Date Provider Diagnosis [facility] [address] [facility] [address] [place] [address] 02/26/2025 Aletha Chadwick Plan Of Treatment No Information Progress Notes * Ramy QUINTEROineDOB: [birth year] (85 yo F)Acc No.[id number]:02/26/2025 Follow-Up Visit Patient: Maryjane ROMANO Provider: Bailee Chadwick NP :1940 A ge:85 Y S ex:Female Date:02/26/2025 Address:[address] [place], [place] [id number] Pcp:Mary Santana PA-C Subjective: * Chief Complaints: * * Medical History: Objective: * Vitals: Assessment: Plan: * Treatment: * Billing Information: * Visit Code: * Procedure Codes: * Electronic signature of Megan Chadwick NP on 03/27/2025 at 03:30 PM EDT Sign off status: Pending * Provider: Bailee Chadwick NP Date: 02/26/2025 Generated for Printi ng/Faxing/eTransmitting on: 0 03/27/2025 03:30 PM EDT
--- OUTSIDE RECORDS SUMMARY | 2025-03-05 09:00 | XMS_ITS ---
Author Organization [facility] Address [address] [facility] [address] [place] [address] Care Team Providers Care Imaging Scheduler Name Role Phone Mary Santana PA-C Primary Care Provider Hussain Gallego Unavailable [phone] REASON FOR VISIT Follow up wound care Encounters Encounter Location Date Provider Diagnosis [facility] [address] [facility] [address] [place] [address] 03/05/2025 Hussain Hathaway Plan Of Treatment No Information Progress Notes * LEONRamy CorralineDOB: [birth year] (85 yo F)Acc No.[id number]:03/05/2025 Follow-Up Visit Patient: Maryjane ROMANO Provider: Renzo Hathaway NP :1940 A ge:85 Y S ex:Female Date:03/05/2025 Address:[address] [place] [address], [phone] Pcp:Mary Santana PA-C Subjective: * Chief Complaints: * 1 . Follow up wound care. * Medical History: Objective: * Vitals: Assessment: Plan: * Treatment: * Billing Information: * Visit Code: * Procedure Codes: * Electronic signature of Varghese Hathaway NP on 03/27/2025 at 03:30 PM EDT Sign off status: Pending * Provider: Renzo Hathaway NP Date: 03/05/2025 Generated for Printi ng/Faxing/eTransmitting on: 03/27/2025 03:30 PM EDT
--- NOTE | 2025-03-27 14:25 | MHC.PC.OV ---
Vital Signs 03/27/25 14:30 Height 4 ft 7 in Weight 118 lb 8 oz BMI 27.5 BP 116/72 Blood Pressure Location Rt brachial Position Sitting Respiration 16 Pulse 72 Pulse Source Pulse Oximeter Temp 97.7 F Temp Source Temporal Artery Scan Pulse Oximetry (%) 97 Oxygen Delivery Method Room Air Intake Visit Reasons: F/U [facility] on 03/05 Intake Note: Maryjane presents in the office for a follow up to [facility]. Allergies Penicillins (PENICILLINS) Allergy (Unknown, Verified 03/27/25 14:28) SWELLING doxycycline Adverse Reaction (Intermediate, Verified 03/27/25 14:28) Vomiting Tobacco use date assessed: 03/27/25 Dental Screening Dental Screen Date: 03/27/25 Did you have a dental visit in the last 12 months?: No Did you have a dental problem in the last 6 months where you did not have access to dental care?: No Was dental information given to patient?: Patient declined HPI HPI Comments History of Present Illness Details This is an 85-year-old female with a past medical history of NSTEMI 2024, ischemic stroke and recurrent TIAs, peripheral vascular disease and recurrent cellulitis of the lower extremities, Parkinson's, chronic back pain on opiates, skin cancer and 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 She is here with her CR[employer] SPECIALIST, Mela. The patient presented to [facility] on 02/18/2025. [facility] Care did a culture prior to this which was positive for Pseudomonas, and she was put on ciprofloxacin, but there was concern for increased pain and redness despite being on antibiotics for 48 hours. She also describes significant discharge and redness progressing rapidly. Only the ER note is available at the time of this visit. She was admitted and then transferred to [facility] until 03/05/2025. Mela reports she received IV antibiotics and had imaging of her lower extremity, possibly an ultrasound and/or CAT scan. She is doing much better. The wound is dressed and wrapped today however Mela shared a picture of it this morning, and it has dried out, and there is no open area. There was also no evidence of cellulitis on this picture. VNA services for dressing changes were discontinued as they were no longer needed. She is on furosemide 60 mg daily. Her weight was stable at 118 lb this morning. She using compression dressings on the lower extremities. DAWSON was done at [facility], and she has worse circulation on the left than the right. Vascular surgery-She has a longstanding history of PVD and lower extremity edema. She is followed by Dr. Medrano. Parkinson's symptoms-followed by [facility] and on carbidopa levodopa now. The dose was recently increased. She needs a new referral for speech therapy. 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 She denies chest pain or shortness of breath. She has a history of recurrent pressure ulcers on her buttocks and back that are treated with foam padding and zinc oxide/and or triple antibiotic ointment. She is very frail and bony. She has a hospital bed with air mattress. Chronic pain is managed by Dr. Baugh. She has a history of multiple joint replacement surgeries. She has a compression fracture from an old injury. She is on opioids chronically. She was previously on gabapentin which was discontinued due to causing memory issues. She has carpal tunnel syndrome. Lyrica was ineffective. ROS: Constitutional: Denies weight loss, night sweats, fevers or chills. Respiratory: No cough. No shortness a breath. Cardiovascular: No chest pain or palpitations. + chronic lower extremity edema right greater than left Gastrointestinal: No nausea, vomiting or abdominal pain Neurologic: No headache, dizziness, syncope, seizures Musculoskeletal: chronic pain Skin: see HPI Physical exam: Constitutional: Alert, in no distress. In wheelchair. Head: Normocephalic. Neck: Supple, Full range of motion. No lymphadenopathy. Respiratory: Clear to auscultation. Cardiovascular: S1 S2 regular. No murmurs. Neurologic:?Alert and oriented x 3, clear speech, no facial drooping, moves extremities spontaneously. Lower extremities: Patient's legs are wrapped with compression dressings. There is edema noted of the feet which is her baseline. No erythema. COUNTS INCLUDE 234 BEDS AT THE [facility] Medical History (Updated 03/28/25 @ 16:14 by BORIS Abreu) Cellulitis of right leg Venous stasis ulcers Parkinsons disease Chronic diastolic heart failure Positive KRISTI (antinuclear antibody) COVID-19 Word finding difficulty Cognitive decline Weakness Ataxia Change in voice Tremor Fall Hospital discharge follow-up Bilateral lower leg cellulitis Paresthesias Physical deconditioning Osteoarthritis, multiple sites Pressure ulcers of skin of multiple topographic sites Risk for falls Coronary artery disease Osteoporosis PVD (peripheral vascular disease) PMR (polymyalgia rheumatica) Pacemaker Chronic neck pain Liver cyst Hyperlipidemia LDL goal <70 History of recurrent TIAs History of [place] (myocardial infarction) History of ischemic stroke History of anemia Compression fracture of spine Chronic pain syndrome Candidal intertrigo SCCA (squamous cell carcinoma) of skin BCC (basal cell carcinoma of skin) AV block, 3rd degree Surgical History (Updated 01/11/24 @ 11:55 by BORIS Abreu) History of elbow surgery History of bunionectomy S/p bilateral shoulder joint replacement History of left hip replacement History of bilateral knee replacement Social History (Updated 03/27/25 @ 14:30 by Indigo Nieto MA) Housing: Condominium Alcohol intake: never Patient Tobacco Use Status: Never used Tobacco e-Cigarette/Vaping Use: Never Used Second Hand Smoke Exposure: Yes service: No Current occupational status: retired Current occupational exposures/hazards: No Cognitive needs: No Hearing needs: No Vision needs: No Questionnaire Thrive Questionnaire Date Thrive assessed: 08/02/24 I am a: Parent/Caregiver What is your living situation today?: I have a steady place to live Within the past 12 months, did the food you bought not last and you didn't have the money to get more?: I choose not to answer this question Within the past 12 months, did you worry whether your food would run out before you got money to buy more?: I choose not to answer this question Do you have trouble paying for medicines?: I choose not to answer this question Do you have trouble getting transportation to medical appointments?: I choose not to answer this question Do you have trouble paying your heating and electricity bill?: I choose not to answer this question Do you have trouble taking care of your child, family member or friend?: I choose not to answer this question Do you have trouble with day-to-day activities such as bathing, preparing meals, shopping, managing finances, etc.?: I choose not to answer this question Are you currently unemployed and looking for a job?: I choose not to answer this question Are you interested in more education?: I choose not to answer this question Please select the resources that you would like help with: None Currently or been in a relationship where the following occur: I choose not to answer THRIVE Score: 0 HOLLI-7 AMB Questionnaire HOLLI-7 Date HOLLI - 7 assessed: 11/25/24 Source: Developed by Drs. Cooper Oreilly, Alisia Armenta, Jose Juan Bustillo and colleagues, with an educational nella from [employer]. Physical exam (Primary Care) Vital Signs: Last Vital Signs Temp 97.7 F 03/27/25 14:30 Pulse 72 03/27/25 14:30 Resp 16 03/27/25 14:30 BP 116/72 03/27/25 14:30 Pulse Ox 97 03/27/25 14:30 Oxygen Delivery Method Room Air 03/27/25 14:30 BMI result Body Mass Index 27.5 Tobacco/Smoking Status: Tobacco use Status Tobacco use date assessed 03/27/25 03/27/25 14:33 Patient Tobacco Use Status Never used Tobacco 03/27/25 14:30 e-Cigarette/Vaping Use Never Used 03/27/25 14:30 Thrive Assessment: Date of Thrive Assessment Date Thrive assessed 08/02/24 03/27/25 14:27 Currently or been in a relationship where the following occur: I choose not to answer Coding Level of Care Code Est Pt Level 4 (48582) Complex EM visit Add On G2211 Diagnoses Hospital discharge follow-up Z09 PVD (peripheral vascular disease) I73.9 Parkinson's disease with fluctuating manifestations, unspecified whether dyskinesia present G20.A2 Dyskinesia presence: unspecified whether dyskinesia Fluctuating manifestations: with fluctuating manifestations Venous stasis ulcer with other ulcer severity without varicose veins, unspecified site I87.2; L97.908 Venous stasis ulcer site: unspecified site Varicose vein presence: without varicose veins Non-pressure ulcer stage: with other severity Cellulitis of right leg L03.115 Assessment & Plan Assessment & Plan (1) Hospital discharge follow-up: Code(s): Z09 - Encounter for follow-up examination after completed treatment for conditions other than malignant neoplasm Category: Medical (2) PVD (peripheral vascular disease): Code(s): I73.9 - Peripheral vascular disease, unspecified Category: Medical (3) Parkinsons disease: Code(s): G20.A1 - Parkinson's disease without dyskinesia, without mention of fluctuations Category: Medical Qualifiers: Dyskinesia presence: unspecified whether dyskinesia Fluctuating manifestations: with fluctuating manifestations Qualified Code(s): G20.A2 - Parkinson's disease without dyskinesia, with fluctuations (4) Venous stasis ulcers: Code(s): I83.009 - Varicose veins of unspecified lower extremity with ulcer of unspecified site; L97.909 - Non-pressure chronic ulcer of unspecified part of unspecified lower leg with unspecified severity Category: Medical Qualifiers: Venous stasis ulcer site: unspecified site Varicose vein presence: without varicose veins Non-pressure ulcer stage: with other severity Qualified Code(s): I87.2 - Venous insufficiency (chronic) (peripheral); L97.908 - Non-pressure chronic ulcer of unspecified part of unspecified lower leg with other specified severity (5) Cellulitis of right leg: Code(s): L03.115 - Cellulitis of right lower limb Category: Medical Plan Cellulitis resolved. No further antibiotics recommended at this time. Continue Lasix 60 mg every morning. Remain off Lyrica which was ineffective and can cause more fluid retention. Keep legs elevated. She is using compression dressings. Warning signs warranting ER evaluation reviewed. Continue carbidopa levodopa. She has a follow up scheduled with Neurology. Speech therapy ordered. Hospital discharge summary requested. Follow up up in 12 weeks or sooner as needed. Orders: Referrals [facility] Referral G20.A1 - Parkinson's disease without dyskinesia, without mention of fluctuations, R41.89 - Other symptoms and signs involving cognitive functions and awareness, R47.89 - Other speech disturbances
[2025-03-27 14:30] VITALS: BP 116/72; PULSE 72; RESP 16; TEMP 36.5; O2SAT 97; BMI 27.5
--- OUTSIDE RECORDS SUMMARY | 2025-03-27 15:31 | XMS_ITS | Clinical Summary ---
Author Organization [facility] Address [address] [place] [address] Care Team Providers Care Crib Attendant Name Role Phone Mary Santana Primary Care Provider [phone] Allergies Active Allergy Reactions Criticality Noted Date [...] Active Active Problems No known active problems Social History Tobacco Use Types Packs/Day Years [...] Health Maintenance Due Date Last Done Comments Advance Care Planning 1940 DTaP/Tdap/Td Vaccines (1 - Tdap) 1957 Pneumococcal Vaccines 50+ (1 of 1 - PCV) 01/19/1988 Zoster (Shingles) Vaccine (1 of 2) 01/19/1988 DXA Bone Density (Females,Ages 65 and older) 2003 RSV Vaccine 60 years and older and Patients (1 - 1-dose 75+ series) 2013 COVID-19 Vaccine ( season) 2024 04/18/2024, 05/09/2022, 08/10/2021, Additional history exists Influenza Vaccine 02/21/2025 04/18/2024, , 05/09/2022, Additional history exists Hepatitis B Vaccines Aged Out No long er eligible based on patient's age to complete this topic Insurance MEDICARE PART A & B [facility] BLUE CROSS MEDIBLUE MGD MEDICARE Care Teams Crib Attendant Relationship Specialty Start Date End Date Mary Santana PA [address] [place] [phone] PCP - General General Medicine 12/06/24
--- OUTSIDE RECORDS SUMMARY | 2025-03-27 15:31 | XMS_ITS | Patient Health Record ---
Author Organization [facility] Address [address] [place] [address] Care Team Providers Care Clinching Machine Operator Name Role Phone Zarina Hendrickson Unavailable [phone] Reason For Referral No Information Medications Medication SIG (Take, Route, Frequency, Duration) Notes Start Date End Date Status Percocet 5-325 1 ORAL every six perez rs; Duration: [facility] 07/15/2013 Active predniSONE 1 ORAL daily; Durati on: - [facility] 07/15/2013 Active Soma 1 ORAL FOUR TIMES DA MAHESH; Duration: [facility] 07/15/2013 Active Aspirin EC 81MG 1 ORAL daily; Durati on: - [facility] 07/15/2013 Active Estrace Vaginal Cream 42.5GM Vaginal 1GM 2X A WEEK; Duration: [place] [facility] [place] Active Problems Problem Type SNOMED Code ICD Code Onset Dates Problem Status W/U Status Risk Notes Problem Menopausal symptom (93406618) Symptomatic menopausal or female climacteric states (627.2) Active confirmed Major Problem Postmenopausal atrophic vaginitis (05458302) Postmenopausal atrophic vaginitis (627.3) Active confirmed Diag Problem Osteoarthritis (631322288) Osteoarthrosis, unspecified whether generalized or localized, unspecified site (715.90) Active confirmed Major Problem 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) Active confirmed Major Problem Gynecological examination normal (589046937052518) Routine gynecological examination (V72.31) Active confirmed Major Problem History of cerebrovascular accident without residual deficits (319290915) Personal history of transient ischemic attack [TIA], and cerebral infarction without residual deficits (V12.54) Active confirmed Major Problem Screening for malignant neoplasm of colon (667704029) Special screening for malignant neoplasms, colon (V76.51) Active confirmed Major Plan Of Treatment No Information Insurance Providers Payer Name Payer Address Payer Phone Subscriber Number Group Number Insured Name Patient Relationship to Insured Coverage Start Date Coverage End Date MEDICARE [address] [place], [place] [id number] [phone] [id number] WANDA QUINTERO Self - patient is the insured [facility] INDEMNITY PLAN [address] [place], [place] [id number] WANDA QUINTERO Self - patient is the insured
--- OUTSIDE RECORDS SUMMARY | 2025-03-27 15:31 | XMS_ITS | Patient Health Record ---
Author Organization [facility] Address [address] [place] [address] Care Team Providers Care Medical Imaging Tech Name Role Phone Mary Santana Primary Care Provider Hasmukh Blanco Unavailable [phone] Allergies Allergen (clinical drug ingredient) Drug/Non Drug [...] Status Risk Notes Problem Acquired hallux rigidus (5089185) Hallux rigidus, left foot (M20.22) Active confirmed Problem Acquired hammer toe of left foot (2982524390961 103) Other hammer toe(s) (acquired), left foot [...] Medicare [employer] [address] [place] [address] [id number] Maryjane Hunt Self - patient is the insured [employer] [address] [place] [address] [id number] Maryjane uHnt Self - patient is the insured Medical [...]
--- OUTSIDE RECORDS SUMMARY | 2025-03-27 15:31 | XMS_ITS | Patient Health Record ---
Author Organization [facility] Address [address] [facility] [address] [place] [address] Care Team Providers Care Gore Maker Name Role Phone Mary Santana PA-C Primary Care Provider Hussain Gallego Unavailable [phone] Amaya Mott Unavailable [phone] Aletha Chadwick Unavailable [phone] Allergies Allergen (clinical drug ingredient) Drug/Non Drug Allergy documented on EMR Reaction Allergy Type Onset Date Status doxycycline Doxycycline Unknown Drug Allergy Act cheryl gabapentin Gabapentin Unknown Drug Allergy Activ e Penicillin Unknown Drug Allergy Active Reason For Referral No Information Medications Medication SIG (Take, Route, Frequency, Duration) Notes Start Date End Date Status Aspirin 81 81 MG 1 tablet Orally Once a day Active Carbidopa-Levodopa 25-100 MG 1 tablet as needed Orally Two times a Week Active OxyCONTIN 20 MG 1 tablet Orally ever y 12 hrs Active Calcium Carbonate 600 MG 1 tablet with f ood Orally Twice a day Not-Taking Latanoprost 0.005 % 1 drop into affected eye in the evening Ophthalmic Once a day Active Ciprofloxacin HCl 500 MG 1 tablet Orally every 12 hrs Not-Taking Acetaminophen 325 MG 1 tablet as needed Orally every 6 hrs Active Soma 350 MG 1 tablet as needed Orally Three times a day Active oxyCODONE HCl 10 MG 1 tablet as needed Orally every 6 hrs Active Atorvastatin Calcium 40 MG 1 tablet Oral ly Once a day Active Furosemide 20 MG 3 tablets Orally Onc e a day Active NIFEdipine ER 30 MG 1 tablet on an empty stomach Orally Once a day Active PreserVision AREDS - as directed Orally Active Multivitamin - 1 tablet Orally Once a day Active Pregabalin 25 MG 1 capsule Orally Onc e a day Not-Taking Colace 100 MG 1 capsule as needed Orally Once a day Active Problems Problem Type SNOMED Code ICD Code Onset Dates Problem Status W/U Status Risk Notes Problem Venous ulcer of lower extremity due to chronic peripheral venous hypertension (disorder) (162756633279466) Chronic venous hypertension (idiopathic) with ulcer of right lower extremity (I87.311) Active confirmed Problem Chronic non-pressure ulcer of calf extending to fat level (48595678024314404 ) Non-pressure chronic ulcer of other part of right lower leg with fat layer exposed (L97.812) Active confirmed Problem Polymyalgia rheumatica (60589716) Polymyalgia rheumatica (M35.3) Active confirmed Problem Peripheral vascular disease (878199751) PVD (peripheral vascular disease) (I73.9) Active confirmed Problem Venous insufficiency of leg (disorder) (723508281) Venous insufficiency (I87.2) Active confirmed Problem AV block (488085368) AV block (I44.30) Active confirmed Problem Hypertension (42434250) Hypertension (I10) Active confirmed Problem Hyperlipidemia (54991662) Hyperlipidemia (E78.5) Active confirmed Problem Anemia (722382687) Anemia (D64.9) Active confir med Problem CVA - Cerebrovascular accident (281678364) CVA (cerebral vascular accident) (I63.9) Active confirmed Problem Chronic pain (28803341) Chronic pain (G89.29) Active confirmed Problem Osteoporosis (96696800) Osteoporosis (M81.0) Active confirmed Problem Basal cell carcinoma (5647507) Basal cell carcinoma (C44.91) Active confirmed Problem Squamous cell carcinoma of skin (296385245) SCC (squamous cell carcinoma) (C44.92) Active confirmed Problem Myocardial infarction (28398151) Myocardial infarction (I21.9) Active confirmed Vital Signs Heart Rate 73 /min 03/11/2025 Temperature 97.9 degrees Fahrenheit 03/11/2025 Respiratory Rate 16 /min 03/11/2025 Height-cm 139.7 cm 03/11/2025 Oximetry 95 % 03/11/2025 Blood pressure diastolic 62 mm Hg 03/11/2025 Weight-kg 53.52 kg 03/11/2025 Height 55 in 03/11/2025 Blood pressure systolic 122 mm Hg 03/11/2025 Weight 118 lbs 03/11/2025 BMI 27.42 kg/m2 03/11/2025 Encounters Encounter Location Date Provider Diagnosis [facility] [address] [address] 02/04/2025 Hussain Hathaway Chronic venous hypertension (idiopathic) with ulcer of right lower extremity I87.311 ; Non-pressure chronic ulcer of other part of right lower leg with fat layer exposed L97.812 ; Venous insufficiency I87.2 ; PVD (peripheral vascular disease) I73.9 ; Hypertension I10 ; SCC (squamous cell carcinoma) C44.92 and Basal cell carcinoma C44.91 [facility] [address] [address] 02/11/2025 Hussain Hathaway Chronic venous hypertension (idiopathic) with ulcer of right lower extremity I87.311 ; Non-pressure chronic ulcer of other part of right lower leg with fat layer exposed L97.812 ; Abrasion, right lower leg, initial encounter S80.811A ; Venous insufficiency I87.2 ; PVD (peripheral vascular disease) I73.9 ; Hypertension I10 ; SCC (squamous cell carcinoma) C44.92 and Basal cell carcinoma C44.91 [facility] [address] [place] [address] 02/17/2025 Amaya Mott Chronic venous hypertension (idiopathic) with ulcer of right lower extremity I87.311 ; Non-pressure chronic ulcer of other part of right lower leg with fat layer exposed L97.812 ; Venous insufficiency I87.2 ; PVD (peripheral vascular disease) I73.9 ; Hypertension I10 ; SCC (squamous cell carcinoma) C44.92 ; Basal cell carcinoma C44.91 and Cellulitis of right lower leg L03.115 [facility] [address] [address] 03/11/2025 Hussain Hathaway Chronic venous hypertension (idiopathic) with ulcer of right lower extremity I87.311 ; Non-pressure chronic ulcer of other part of right lower leg with fat layer exposed L97.812 ; Venous insufficiency I87.2 ; PVD (peripheral vascular disease) I73.9 ; Hypertension I10 ; SCC (squamous cell carcinoma) C44.92 ; Basal cell carcinoma C44.91 and Xerosis cutis L85.3 [facility] [address] [address] 01/31/2025 Hussain Hathaway [facility] [address] [place] [address] 02/17/2025 Hussain Hathaway [facility] [address] [facility] [address] [place] [address] 02/20/2025 Hussain Hathaway [facility] [address] [facility] [address] [place] [address] 02/20/2025 Hussain Hathaway Assessments Encounter Date Diagnosis (ICD Code) Assessment Notes Treatment Notes Treatment Clinical Notes Section Notes 02/04/2025 Chronic venous hypertension (idiopathic) with ulcer of right lower extremity (ICD-10 - I87.311) On exam, vital signs stable, afebrile, non-ill appearing, A/Ox3. I removed the dressing and examined the wound located on the right lateral lower extremity. She has palpable DP/PT on right, +2 ankle edema, visible varicosities, thin fragile skin. The wound bed contains slough, fibrinous rim and devitalized tissue. There is no surrounding erythema, no warmth, no odor, no signs of acute infection. I discussed the indication for debridement and patient was greeable to procedure. I performed debridement of the wound as outlined above. Wound was cleaned with Dakins, rinsed with Saline, HFB was applied to the wound bed, zinc to periwound, covered with DSD. Tubigrip was applied to the right leg. She tolerated the procedure well. Maryjane presents today for initial visit for treatment of right lateral lower leg chronic venous ulcer. The ulcer does not appear to be infected today. I will recommend HFB to be applied to the wound, change every 2-3 days. She has edema in both legs. We applied tubigrip to the right leg today. I advised her to put it on in the AM and off in PM and encouraged leg elevation. I will order ABIs to evaluate her arterial flow. She is advised to remove the tubigrip if she develops increased pain and resume deborah wrap as she has been tolerating them. Reviewed signs of infection and when to report. All questions/concern s addressed today. She will return in 1 week for a follow up visit. I spent 50 minutes of direct and indirect care of this patient reviewing records, gathering H&P, evaluation, formulating plan, education and documentation. I Hussain Htahaway [employer]UST[employer] MAINTENA[employer]CE [employer]CH[employer]IC-C, examined, evaluated and treated the patient. Dr. Laisha Lopez was available for any question or concerns that I may have had. 02/04/2025 Non-pressure chronic ulcer of other part of right lower leg with fat layer exposed (ICD-10 - L97.812) 02/11/2025 Chronic venous hypertension (idiopathic) with ulcer of right lower extremity (ICD-10 - I87.311) On exam, vital signs stable, afebrile, non-ill appearing, A/Ox3. I removed the dressing and examined the wounds. She has a wound on the right posterior lower leg and a new abrasion on the right anterior leg. She has palpable DP/PT on right, +2 ankle edema, visible varicosities, thin fragile skin. The posterior leg wound bed contains slough, fibrinous rim and devitalized tissue. There is no surrounding erythema, no warmth, no odor, no signs of acute infection. The right anterior abrasion is superficial, no indication for debridement. I performed debridement of the posterior leg wound as outlined above. Wound was cleaned with Dakins, rinsed with Saline, Silvasorb with HFB was applied to the wound bed, zinc to periwound, covered with DSD. Double layer tubigrip was applied to the right leg. She tolerated the procedure well. Maryjane presents today for a follow up for treatment of right lateral lower leg chronic venous ulcer and new abrasion on the right anterior leg wound. The ulcers do not appear to be infected today. I will add silvasorb to the HFB to be changed every 2-3 days to be applied to both wounds. She has edema in both legs. She tolerated the tubigrip without any issues. ABIs obtained today reveal right 0.82, left 0.74, TBI right 0.47, left 0.56. I reviewed the results with patient. She is followed by vascular. Will consider further vascular workup if wound does not progress to healing. She continues to have +3 edema on the right leg therefore I will increase the compression to double layer tubigrip. I did advise her to remove a layer if she develops increased pain. I advised her to put it on in the AM and off in PM and encouraged leg elevation. Reviewed signs of infection and when to report. All questions/concern s addressed today. She will return in 1 week for a follow up visit. I Hussain COUCH, examined, evaluated and treated the patient. Dr. Laisha Lopez was available for any question or concerns that I may have had. 02/11/2025 Non-pressure chronic ulcer of other part of right lower leg with fat layer exposed (ICD-10 - L97.812) 02/17/2025 Chronic venous hypertension (idiopathic) with ulcer of right lower extremity (ICD-10 - I87.311) I am concerned about cellulitis, so I took a wound culture after debriding and cleansing. I will begin Ciprofloxacin and she will keep her appt with Jazmin in 2 days in the [place] office. The culture result will be followed and discussed with patient and family in 2-3 days with Jazmin. For topical, because of the heavy drainage and irritation to the periwound, I recommend d/c'ing the Silvasorb. Use Adaptic then HFB with a super absorbant like Opitlock and cornelia gauze. Change daily for now. Family will help with the extra dressing changes and we will notify the VNA. Control leg edema to aid in healing. Wear compression -single layer tubigrip for waking hours every day. Elevate ankles to heart level when sitting. Cont sleeping in her bed at night. Call sooner if any questions or concerns. They understand and agree with plan and I answered all questions to their satisfaction. After examination, I discussed the indication of debridement and he was agreeable. I then performed debridement to remove devitalized tissues as outlined. He tolerated procedure well. The wound site was then cleansed with wound cleanser and thereafter, a dressing as noted above was applied onto the wound site and zinc to cash wound areas. The sites were then covered with a dry dressing. I, Amaya COUCH, examined, evaluated , and treated the patient. Dr. Laisha Lopez was available for any questions or concerns that I may have had.y have had. 02/17/2025 Non-pressure chronic ulcer of other part of right lower leg with fat layer exposed (ICD-10 - L97.812) 03/11/2025 Chronic venous hypertension (idiopathic) with ulcer of right lower extremity (ICD-10 - I87.311) On exam, vital signs stable, afebrile, non-ill appearing, A/Ox3. I removed the dressing and examined the wounds. Her wounds are now re-epithelialized , there is dry scabs which I was able to remove easily with gauze. She has plaques of dry skin. She has BLE edema, visible varicosities, thin fragile skin. There are no open wounds today. We applied moisturizer and double layer tubigrip to the right leg. I will send script for Ammonium lactate to be applied to legs daily. I discussed importance of compression and leg elevation. She has doug stockings at home but does not tolerate compression around the toes. She will use double layer tubigrip. She does not need any further follow up. Thank you for allowing us to participate in your care. I Hussain COLON-Gato, examined, evaluated and treated the patient. Dr. Laisha Lopez was available for any question or concerns that I may have had. 03/11/2025 Non-pressure chronic ulcer of other part of right lower leg with fat layer exposed (ICD-10 - L97.812) 03/11/2025 Venous insufficiency (ICD-10 - I87.2) 02/17/2025 Venous insufficiency (ICD-10 - I87.2) 02/11/2025 Abrasion, right lower leg, initial encounter (ICD-10 - S80.811A) 02/04/2025 Venous insufficiency (ICD-10 - I87.2) 02/04/2025 PVD (peripheral vascular disease) (ICD-10 - I73.9) 02/17/2025 PVD (peripheral vascular disease) (ICD-10 - I73.9) 02/11/2025 Venous insufficiency (ICD-10 - I87.2) 03/11/2025 PVD (peripheral vascular disease) (ICD-10 - I73.9) 03/11/2025 Hypertension (ICD-10 - I10) 02/17/2025 Hypertension (ICD-10 - I10) 02/04/2025 Hypertension (ICD-10 - I10) 02/11/2025 PVD (peripheral vascular disease) (ICD-10 - I73.9) 02/11/2025 Hypertension (ICD-10 - I10) 02/04/2025 SCC (squamous cell carcinoma) (ICD-10 - C44.92) 02/17/2025 SCC (squamous cell carcinoma) (ICD-10 - C44.92) 03/11/2025 SCC (squamous cell carcinoma) (ICD-10 - C44.92) 03/11/2025 Basal cell carcinoma (ICD-10 - C44.91) 02/11/2025 SCC (squamous cell carcinoma) (ICD-10 - C44.92) 02/17/2025 Basal cell carcinoma (ICD-10 - C44.91) 02/04/2025 Basal cell carcinoma (ICD-10 - C44.91) 02/11/2025 Basal cell carcinoma (ICD-10 - C44.91) 02/17/2025 Cellulitis of right lower leg (ICD-10 - L03.115) 03/11/2025 Xerosis cutis (ICD-10 - L85.3) Plan Of Treatment No Information Insurance Providers Payer Name Payer Address Payer Phone Subscriber Number Group Number Insured Name Patient Relationship to Insured Coverage Start Date Coverage End Date Medicare [address] [facility] [place] [place] [id number] Maryjane Hunt Self - patient is the insured 3 [facility] [address] [place], [place] [phone] [id number] Maryjane Hunt Self - patient is the insured 0 Medical (General) History Medical History History ICD Code Polymyalgia rheumatica M35.3 Basal cell carcinoma C44.91 AV block I44.30 Candidal intertrigo B37.2 CHF (congestive heart failure) I50.9 Chronic pain G89.29 Hyperlipidemia E78.5 Hypertension I10 Headache R51 Myocardial infarction I21.9 Anemia D64.9 CVA (cerebral vascular accident) I63.9 Osteoporosis M81.0 Edema R60.9 PVD (peripheral vascular disease) I73.9 Rhabdomyolysis M62.82 SCC (squamous cell carcinoma) C44.92 Surgical History Surgery Date(Month/Year) Bilateral knee replacement Hip replacement Left Pacemaker placement Bilateral shoulder joint replacement Bunionectomy elbow surgery
== END 2025-03-27 15:00 | disposition home or self-care (01) ==
LOC: HO.HMCFM 14:13
PROVIDERS: PCP Physician Assistant Medical; Visit Provider Physician Assistant Medical
DX: I73.9 Peripheral vascular disease, unspecified (principal); G20.A2 Parkinson's disease without dyskinesia, with fluctuations; L97.908 Non-pressure chronic ulcer of unspecified part of unspecified lower leg with other specified severity; Z09 Encounter for follow-up examination after completed treatment for conditions other than malignant neoplasm; I87.2 Venous insufficiency (chronic) (peripheral); L03.115 Cellulitis of right lower limb

== ENCOUNTER → 2025-03-27 14:12 | Outpatient (BNVA) | payer MEDICARE, OTHER, SELFPAY | PROVIDERS: PCP Physician Assistant Medical; Visit Provider Physician Assistant Medical | DX: Z09 Encounter for follow-up examination after completed treatment for conditions other than malignant neoplasm (principal); I73.9 Peripheral vascular disease, unspecified; G20.A2 Parkinson's disease without dyskinesia, with fluctuations; I87.2 Venous insufficiency (chronic) (peripheral); L97.908 Non-pressure chronic ulcer of unspecified part of unspecified lower leg with other specified severity; L03.115 Cellulitis of right lower limb; G89.29 Other chronic pain; M54.9 Dorsalgia, unspecified; I25.2 Old myocardial infarction; Z86.73 Personal history of transient ischemic attack (TIA), and cerebral infarction without residual deficits; Z79.891 Long term (current) use of opiate analgesic; Z79.899 Other long term (current) drug therapy | CPT/HCPCS: 99212 ==

== ENCOUNTER 2025-07-07 10:48 | Outpatient (AMB) | payer MEDICARE, OTHER, SELFPAY ==
--- NOTE | 2025-07-07 11:21 | MHC.PC.OV ---
Vital Signs 07/07/25 11:28 Height 4 ft 7 in Weight 118 lb BMI 27.4 BP 106/64 Blood Pressure Location Lt brachial Position Sitting Respiration 16 Pulse 73 Pulse Source Pulse Oximeter Temp 98 F Temp Source Temporal Artery Scan Pulse Oximetry (%) 95 Oxygen Delivery Method Room Air Intake Visit Reasons: 30 minutes complex follow up Intake Note: Maryjane presents in the office today for a complex follow up to chronic conditions. 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: No Is last menstrual period known: No Post menopausal: Yes Patient : No Allergies Penicillins (PENICILLINS) Allergy (Unknown, Verified 07/07/25 11:23) SWELLING doxycycline Adverse Reaction (Intermediate, Verified 07/07/25 11:23) Vomiting Medication List - Last Reconciled 07/07/25 by BORIS Abreu acetaminophen ER (Tylenol 8 Hour) 650 mg PO Q8H aspirin 81 mg PO DAILY atorvastatin 40 mg PO BEDTIME bismuth tribrom-petrolatum,wh 1 X 8 (Xeroform Petrolatum Dressing) As directed bismuth tribrom-petrolatum,wh 5 X 9 (Xeroform) As directed calcium carbonate 600 mg PO DAILY carbidopa-levodopa 25-100 mg 1.5 tabs three times daily. carisoprodol 350 mg PO BID PRN 28 days dapagliflozin propanediol (Farxiga) 5 mg PO QAM docusate sodium 100 mg PO DAILY elastic bandage (Coban Self-Adherent Wrap) As directed emollient combination no.119 (Eucerin Advanced Repair topical cream) topically; apply to lower legs twice daily. furosemide 40 mg PO DAILY gauze bandage (Rolled Gauze) As directed hospital bed As directed lidocaine 5% patches topical miscellaneous medical supply 1 ea miscellaneous .N/A miscellaneous medical supply 1 ea as directed; multivitamin (Daily Multi-Vitamin tablet) 1 tab PO DAILY mupirocin 2% 1 appl topical BID-TID nifedipine ER 30 mg PO DAILY oxycodone 10 mg PO QID PRN 28 days oxycodone ER (OxyContin) 20 mg PO BID 28 days potassium chloride ER 40 mEq PO DAILY silicone,dressing-foam bandage 3 X 3 As directed silicone,dressing-foam bandage 4 X 4 As directed zinc oxide 25% 1 appl topical BID-TID PRN Tobacco use date assessed: 07/07/25 Dental Screening Dental Screen Date: 07/07/25 Did you have a dental visit in the last 12 months?: Yes Did you have a dental problem in the last 6 months where you did not have access to dental care?: No Was dental information given to patient?: Patient has dentist HPI HPI Comments History of Present Illness Details This is an 85-year-old female with a past medical history of NSTEMI 2024, ischemic stroke and recurrent TIAs, peripheral vascular disease and recurrent cellulitis of the lower extremities, Parkinson's, chronic back pain on opiates, skin cancer and 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 History of recurrent cellulitis-1 interval episode treated successfully with outpt course of levaquin. No open wounds currently. The patient presented to [facility] on 02/18/2025. Wound Care did a culture prior to this which was positive for Pseudomonas, and she was put on ciprofloxacin, but there was concern for increased pain and redness despite being on antibiotics for 48 hours. She also describes significant discharge and redness progressing rapidly. Only the ER note is available at the time of this visit. She was admitted and then transferred to [place] until 03/05/2025. She is on furosemide 40 mg daily. Her weight was stable at 118 lb this morning. Her service writer advisor recently started her on Farxiga to decrease the furosemide due to urinary frequency. She using compression dressings on the lower extremities. Dr. Heard is her service writer advisor. She denies chest pain or shortness of breath. Vascular surgery-She has a longstanding history of PVD and lower extremity edema. She is followed by Dr. Medrano. Parkinson's symptoms-followed by [facility] and on carbidopa levodopa now. The dose was recently increased, but they don't see a difference. She has done speech therapy. She will be started PT with [facility] for Parkinsons. She has a history of recurrent pressure ulcers on her buttocks and back that are treated with foam padding and zinc oxide/and or triple antibiotic ointment. She is very frail and bony. She has a hospital bed with air mattress. Chronic pain is managed by Dr. Baugh. She has a history of multiple joint replacement surgeries. She has a compression fracture from an old injury. She is on opioids chronically. She was previously on gabapentin which was discontinued due to causing memory issues. She has carpal tunnel syndrome. Lyrica was ineffective. She has bilateral hand and wrist pain that is worse on the left than the right. The left has severe pain and tingling in the wrist and 1-4th digits. She has been diagnosed with carpal tunnel syndrome of both wrists. She has injections with pain management in the past. She has right middle trigger finger and OA on the right. ROS: Constitutional: Denies weight loss, night sweats, fevers or chills. Respiratory: No cough. No shortness a breath. Cardiovascular: No chest pain or palpitations. + chronic lower extremity edema right greater than left Gastrointestinal: No nausea, vomiting or abdominal pain Neurologic: No headache, dizziness, syncope, seizures Musculoskeletal: chronic pain Skin: see HPI Physical exam: Constitutional: Alert, in no distress. In wheelchair. Head: Normocephalic. Neck: Supple, Full range of motion. No lymphadenopathy. Respiratory: Clear to auscultation. Cardiovascular: S1 S2 regular. No murmurs. Wrists/hands: Positive left Tinels. Phalen maneuver produces left wrist and hand pain. Left hand secondary education professor 3/5. Right hand secondary education professor 4/5. Right 3rd trigger finger. Lower extremities: Patient's legs are wrapped with compression dressings. There is bilateral lower extremity edema which is her baseline. No open wounds. Stasis dermatitis bilaterally. No weeping or bright erythema. . [facility] Medical History (Updated 07/07/25 @ 11:51 by BORIS Abreu) Bilateral hand pain Bilateral carpal tunnel syndrome Spinal stenosis, lumbar region with neurogenic claudication Chronic lumbar radiculopathy Cellulitis of right leg Venous stasis ulcers Parkinsons disease Chronic diastolic heart failure Positive KRISTI (antinuclear antibody) COVID-19 Word finding difficulty Cognitive decline Weakness Ataxia Change in voice Tremor Fall Hospital discharge follow-up Bilateral lower leg cellulitis Paresthesias Physical deconditioning Osteoarthritis, multiple sites Pressure ulcers of skin of multiple topographic sites Risk for falls Coronary artery disease Osteoporosis PVD (peripheral vascular disease) PMR (polymyalgia rheumatica) Pacemaker Chronic neck pain Liver cyst Hyperlipidemia LDL goal <70 History of recurrent TIAs History of TN (myocardial infarction) History of ischemic stroke History of anemia Compression fracture of spine Chronic pain syndrome Candidal intertrigo SCCA (squamous cell carcinoma) of skin BCC (basal cell carcinoma of skin) AV block, 3rd degree Surgical History (Updated 01/11/24 @ 11:55 by BORIS Abreu) History of elbow surgery History of bunionectomy S/p bilateral shoulder joint replacement History of left hip replacement History of bilateral knee replacement Social History (Updated 07/07/25 @ 11:28 by Indigo Nieto CMA) Housing: Condominium Alcohol intake: never Patient Tobacco Use Status: Never used Tobacco e-Cigarette/Vaping Use: Never Used Second Hand Smoke Exposure: Yes service: No Current occupational status: retired Current occupational exposures/hazards: No Cognitive needs: No Hearing needs: No Vision needs: No Questionnaire Thrive Questionnaire Date Thrive assessed: 08/02/24 I am a: Parent/Caregiver What is your living situation today?: I have a steady place to live Within the past 12 months, did the food you bought not last and you didn't have the money to get more?: I choose not to answer this question Within the past 12 months, did you worry whether your food would run out before you got money to buy more?: I choose not to answer this question Do you have trouble paying for medicines?: I choose not to answer this question Do you have trouble getting transportation to medical appointments?: I choose not to answer this question Do you have trouble paying your heating and electricity bill?: I choose not to answer this question Do you have trouble taking care of your child, family member or friend?: I choose not to answer this question Do you have trouble with day-to-day activities such as bathing, preparing meals, shopping, managing finances, etc.?: I choose not to answer this question Are you currently unemployed and looking for a job?: I choose not to answer this question Are you interested in more education?: I choose not to answer this question Please select the resources that you would like help with: None Currently or been in a relationship where the following occur: I choose not to answer THRIVE Score: 0 HOLLI-7 AMB Questionnaire HOLLI-7 Date HOLLI - 7 assessed: 11/25/24 Source: Developed by Drs. Cooper Oreilly, Alisia Armenta, Jose Juan Bustillo and colleagues, with an educational nella from [employer]. Physical exam (Primary Care) Vital Signs: Last Vital Signs Temp 98 F 07/07/25 11:28 Pulse 73 07/07/25 11:28 Resp 16 07/07/25 11:28 BP 106/64 07/07/25 11:28 Pulse Ox 95 07/07/25 11:28 Oxygen Delivery Method Room Air 07/07/25 11:28 BMI result Body Mass Index 27.4 Tobacco/Smoking Status: Tobacco use Status Tobacco use date assessed 07/07/25 07/07/25 11:32 Patient Tobacco Use Status Never used Tobacco 07/07/25 11:28 e-Cigarette/Vaping Use Never Used 07/07/25 11:28 Thrive Assessment: Date of Thrive Assessment Date Thrive assessed 08/02/24 07/07/25 11:23 Currently or been in a relationship where the following occur: I choose not to answer Coding Level of Care Code Est Pt Level 4 (47408) Add On Problem Visit Only Diagnoses Bilateral carpal tunnel syndrome G56.03 Bilateral hand pain M79.641; M79.642 PVD (peripheral vascular disease) I73.9 Parkinson's disease with fluctuating manifestations, unspecified whether dyskinesia present G20.A2 Dyskinesia presence: unspecified whether dyskinesia Fluctuating manifestations: with fluctuating manifestations Assessment & Plan Assessment & Plan (1) Bilateral carpal tunnel syndrome: Code(s): G56.03 - Carpal tunnel syndrome, bilateral upper limbs Category: Medical Plan: Patient has persistent pain despite opioids. Not a good candidate for NSAIDs. Refill topical lidocaine. Refer to hand surgeon for evaluation and treatment options. (2) Bilateral hand pain: Code(s): M79.641 - Pain in right hand; M79.642 - Pain in left hand Category: Medical (3) PVD (peripheral vascular disease): Code(s): I73.9 - Peripheral vascular disease, unspecified Category: Medical (4) Parkinsons disease: Code(s): G20.A1 - Parkinson's disease without dyskinesia, without mention of fluctuations Category: Medical Qualifiers: Dyskinesia presence: unspecified whether dyskinesia Fluctuating manifestations: with fluctuating manifestations Qualified Code(s): G20.A2 - Parkinson's disease without dyskinesia, with fluctuations Plan Continue current medications per cardiology. Farxiga recently added and Lasix reduced. Keep legs elevated. She is using compression dressings. Continue carbidopa levodopa. She has a follow up scheduled with Neurology. Speech therapy in place, starting PT for Parkinsons. Follow up up in 12 weeks or sooner as needed. Orders: Referrals Orthopedics Referral G56.03 - Carpal tunnel syndrome, bilateral upper limbs, M79.641 - Pain in right hand, M79.642 - Pain in left hand Medications: New lidocaine 5% leave on most painful area for up to 12 hrs 1 patch topical DAILY 30 ea 5RF
[2025-07-07 11:28] VITALS: BP 106/64; PULSE 73; RESP 16; TEMP 36.6; O2SAT 95; BMI 27.4
== END 2025-07-07 12:07 | disposition home or self-care (01) ==
LOC: HO.HMCFM 10:48
PROVIDERS: PCP Physician Assistant Medical; Visit Provider Physician Assistant Medical
DX: G56.03 Carpal tunnel syndrome, bilateral upper limbs (principal); G20.A2 Parkinson's disease without dyskinesia, with fluctuations; M79.641 Pain in right hand; M79.642 Pain in left hand; I73.9 Peripheral vascular disease, unspecified

== ENCOUNTER → 2025-07-07 10:48 | Outpatient (BNVA) | payer MEDICARE, OTHER, SELFPAY | PROVIDERS: PCP Physician Assistant Medical; Visit Provider Physician Assistant Medical | DX: G56.03 Carpal tunnel syndrome, bilateral upper limbs (principal); M79.641 Pain in right hand; M79.642 Pain in left hand; I73.9 Peripheral vascular disease, unspecified; G20.A2 Parkinson's disease without dyskinesia, with fluctuations | CPT/HCPCS: 99212 ==

== ENCOUNTER 2025-07-08 11:20 | Outpatient (AMB) | payer MEDICARE, OTHER, SELFPAY ==
[2025-07-08 11:14] VITALS: BMI 27.4
--- NOTE | 2025-07-08 11:14 | A.PHYSOV_ITS ---
Vital Signs 07/08/25 11:14 Height 4 ft 7 in Weight 118 lb BMI 27.4 Intake Visit Reasons: 3M FUV Intake Note: Patient is a 85 year old female in office today for a 3 month medication management visit. Supervisor Steel Division Required: No Allergies Penicillins (PENICILLINS) Allergy (Unknown, Verified 07/08/25 11:15) SWELLING doxycycline Adverse Reaction (Intermediate, Verified 07/08/25 11:15) Vomiting HPI Comments Details: History of Present Illness The patient is an 85-year-old female presenting for a follow-up visit for chronic lower back pain and management of left carpal tunnel syndrome. She has a history of chronic lower back pain, lumbar radiculitis, and severe scoliosis, which is managed with narcotic medications including Oxycontin 20 mg twice a day and oxycodone 10 mg every 4 hours as needed for breakthrough pain. She is also prescribed carisoprodol twice a day and previously had good, but short-lived, benefit from L4-L5 interlaminar injections. Her left carpal tunnel syndrome has caused extreme, unbearable pain, rendering her unable to use the hand. She received a carpal tunnel injection on April 07, 2025, and bilateral carpal tunnel injections on October 08, 2024, which did not provide relief. She has been referred to a hand center for surgical consultation. Her left hand pain has been debilitating. The patient's medical history is also significant for Parkinson's disease, for which she takes levodopa. She has a trigger finger on her right hand, which is not currently bothersome. The patient lives in an assisted living facility but is independent, using a walker at all times in her home and a scooter for longer distances. Pain Description - Location: The patient reports chronic pain in the lower back and extreme, throbbing pain in the left hand. - Severity: The left hand pain is described as unbearable. - Quality: The left hand pain is characterized as throbbing. - Associated Symptoms: The left hand pain is associated with numbness, tingling, and loss of dexterity. - Functional Interference: The patient cannot use her left hand for any activity due to pain. 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 Bilateral hand pain Bilateral carpal tunnel syndrome Spinal stenosis, lumbar region with neurogenic claudication Chronic lumbar radiculopathy Cellulitis of right leg Venous stasis ulcers Parkinsons disease Chronic diastolic heart failure Positive KRISTI (antinuclear antibody) COVID-19 Word finding difficulty Cognitive decline Weakness Ataxia Change in voice [facility]remor Fall Hospital discharge follow-up Bilateral lower leg cellulitis Paresthesias Physical deconditioning Osteoarthritis, multiple sites Pressure ulcers of skin of multiple topographic sites Risk for falls Coronary artery disease Osteoporosis PVD (peripheral vascular disease) PMR (polymyalgia rheumatica) Pacemaker Chronic neck pain Liver cyst Hyperlipidemia LDL goal <70 History of recurrent TIAs History of RI (myocardial infarction) History of ischemic stroke History of anemia Compression fracture of spine Chronic pain syndrome Candidal intertrigo SCCA (squamous cell carcinoma) of skin BCC (basal cell carcinoma of skin) AV block, 3rd degree Surgical History History of elbow surgery History of bunionectomy S/p bilateral shoulder joint replacement History of left hip replacement History of bilateral knee replacement Social History Housing: Condominium Alcohol intake: never Patient Tobacco Use Status: Never used Tobacco e-Cigarette/Vaping Use: Never Used Second Hand Smoke Exposure: Yes service: No Current occupational status: retired Current occupational exposures/hazards: No Cognitive needs: No Hearing needs: No Vision needs: No Review of Systems Narrative Review of Systems - Musculoskeletal: Reports chronic lower back pain. - Extremities: Reports extreme, throbbing pain with associated numbness, tingling, and loss of dexterity in the left hand. - Reports a non-painful trigger finger on the right hand. - Neurological: Reports a history of lumbar radiculitis. Physical Exam Exam Exam: Physical Exam Patient was able to get up with the help and ambulate a couple of steps. Her gait was waddling. Neurological examination was nonfocal. She was appropriately conversant oriented. Lumbar range of motion was restricted in all planes. Severe wasting of thenar eminences in both hands. Vital Signs: BMI result Body Mass Index 27.4 Assessment & Plan Assessment & Plan (1) Bilateral carpal tunnel syndrome: Code(s): G56.03 - Carpal tunnel syndrome, bilateral upper limbs Category: Medical (2) Chronic lumbar radiculopathy: Code(s): M54.16 - Radiculopathy, lumbar region Category: Medical (3) Spinal stenosis, lumbar region with neurogenic claudication: Code(s): M48.062 - Spinal stenosis, lumbar region with neurogenic claudication Category: Medical (4) Chronic pain syndrome: Code(s): G89.4 - Chronic pain syndrome Category: Medical (5) nursing home use of opioid: Code(s): Z79.891 - nursing home (current) use of opiate analgesic Category: Medical Plan Pain Management - Analgesia: The patient is managed on a narcotic regimen for chronic lower back pain, consisting of Oxycontin 20 mg twice a day and oxycodone 10 mg every 4 hours as needed for breakthrough pain. - She also takes carisoprodol twice a day. - Despite management, she reports extreme, unbearable pain in her left hand from carpal tunnel syndrome, which has not responded to injections. - Activities of Daily Living: The patient is unable to perform any activities with her left hand due to severe pain. - She uses a walker at all times at home, and there is concern about her ability to use it post-operatively after a potential carpal tunnel release surgery. - Aberrant Drug-Related Behaviors: No aberrant behaviors were noted; refills were called in and confirmed with the pharmacy. Plan Patient was informed and verbally consented to the use of an ambient scribe for clinic note documentation during this visit. 1. Chronic Lower Back Pain The patient will continue her current medication regimen for chronic back pain, which includes Oxycontin 20 mg twice a day, oxycodone 10 mg every 4 hours as needed, and carisoprodol twice a day. Her refills have been confirmed to be ready at her pharmacy. 2. Left Carpal Tunnel Syndrome The patient is experiencing severe, intractable pain from left carpal tunnel syndrome that has not responded to injections. She has an urgent referral to a hand surgeon and will proceed with the consultation to discuss surgical options. A detailed discussion was held regarding the surgical procedure, recovery expectations, and significant post-operative challenges, including the inability to use her walker and the potential need for a short-term rehabilitation stay. It was also noted that she would require clearance from cardiology prior to any procedure due to her cardiac history. 3. Parkinson's Disease The patient will continue her current medication, levodopa, for Parkinson's disease with no changes at this time. Discussion Notes I confirmed with the patient and her coil winding supervisor that her scheduled pain medication refills are ready at the pharmacy. The majority of the visit was spent discussing her severe left carpal tunnel syndrome, for which she has an urgent referral to a hand specialist. I explained that while the surgery itself is typically minor and done on an outpatient basis, the recovery is the primary concern. I advised that post-surgery, pain may improve in a couple of weeks, but numbness, tingling, and dexterity may not fully return. We discussed the significant functional challenge this poses, specifically her inability to radiologist diagnostic her walker for mobility for possibly one to two weeks, which could necessitate a short-term rehabilitation stay. I also explained that any procedure would require pre-operative cardiac clearance due to her medical history and the use of anesthesia. I clarified that I do not perform this procedure and encouraged her to follow up with the hand surgeon to make a final decision. Patient Instructions - Take your pain medicines, including Oxycontin, Oxycodone, and Carisoprodol, as they have been prescribed for you. - Your medication refills are ready to be picked up at your pharmacy. - Please proceed with your appointment with the hand surgeon to talk about surgery for the severe pain in your left hand. - Be aware that after the surgery, you likely will not be able to use your left hand to hold your walker for 1-2 weeks. - You may need to plan for a short stay at a rehabilitation center to help you recover and stay safe until you can use your hand and walker again. - We will see you for a follow-up visit next year. Coding Level of Care Code Est Pt Level 4 (20802) Add On Problem Visit Only Diagnoses Bilateral carpal tunnel syndrome G56.03 Chronic lumbar radiculopathy M54.16 Spinal stenosis, lumbar region with neurogenic claudication M48.062 Chronic pain syndrome G89.4 nursing home use of opioid Z79.891
--- OUTSIDE RECORDS SUMMARY | 2025-07-08 14:57 | XMS_ITS | Patient Health Record ---
Author Organization [facility] Address [address] [place] [address] Care Team Providers Care Cake Icer Name Role Phone Zarina Hendrickson Unavailable [phone] Reason For Referral No Information Medications Medication SIG (Take, Route, Frequency, Duration) Notes Start Date End Date Status Percocet 5-325 1 ORAL every six perez rs; Duration: [facility] 07/15/2013 Active predniSONE 1 ORAL daily; Durati on: - [facility] 07/15/2013 Active Soma 1 ORAL FOUR TIMES DA MAHESH; Duration: [facility] 07/15/2013 Active Aspirin EC 81MG 1 ORAL daily; Durati on: - [facility] 07/15/2013 Active Estrace Vaginal Cream 42.5GM Vaginal 1GM 2X A WEEK; Duration: - [facility] [place] 07/15/[place] Active Problems Problem Type SNOMED Code ICD Code Onset Dates Problem Status W/U Status Risk Notes Problem Menopausal symptom (56066890) Symptomatic menopausal or female climacteric states (627.2) Active confirmed Major Problem Postmenopausal atrophic vaginitis (32933720) Postmenopausal atrophic vaginitis (627.3) Active confirmed Diag Problem Osteoarthritis (854302166) Osteoarthrosis, unspecified whether generalized or localized, unspecified site (715.90) Active confirmed Major Problem 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) Active confirmed Major Problem Gynecological examination normal (141727175580807) Routine gynecological examination (V72.31) Active confirmed Major Problem History of cerebrovascular accident without residual deficits (038996215) Personal history of transient ischemic attack [TIA], and cerebral infarction without residual deficits (V12.54) Active confirmed Major Problem Screening for malignant neoplasm of colon (196942115) Special screening for malignant neoplasms, colon (V76.51) Active confirmed Major Plan Of Treatment No Information Insurance Providers Payer Name Payer Address Payer Phone Subscriber Number Group Number Insured Name Patient Relationship to Insured Coverage Start Date Coverage End Date MEDICARE [address] [place], [place] [id number] WANDA QUINTERO Self - patient is the insured [facility] [employer] [address] [place], [place] [id number] WANDA QUINTERO Self - patient is the insured
--- OUTSIDE RECORDS SUMMARY | 2025-07-08 14:57 | XMS_ITS | Data Portability ---
Author Organization [facility], Main Office Address [address] [place] [address] Care Team Providers Care Button Breaker Name Role Phone [facility] OTHER IRA JOHNSON Primary Care Provider [phone] Assessment Encounter Date Assessment Date Assessment LastModified by Organization Details LastModified Time 11/08/2024 11/08/2024 84yo patient who presented to the ED for weakness/fatigu e and fall from assisted living facility while being treeated fro acute Covid (receiving Paxlovid). She appeared to be requiring oxygen intermittently and she was admitted. She received IVF as well as Decadron in addition to continuing her Paxlovid Hosp course complicated by delirium likely precipitated by systemic steroids/enviro nment. She is admitted to Call for further Rehab on 11/03/2024 secondary to deconditioning. Otherwise complaining of food. [email or web address] Not available 11/08/2024 10:11:38 Plan of Treatment Reminders Order Date Submit Date Provider Last Modified By Organization Details Last Modified Time Details Appointments None record ed. Lab None record ed. Referral None record ed. Procedures None record ed. Surgeries None record ed. Imaging None record ed. Medication Orders None record ed. Patient TargetsNo targets recorded. Patient InstructionsNo instructions recorded. Reason for Referral None Reported. Problems Name Problem SNOMED Code Status Onset Date Resolution Date Notes Provider Name and Address Organization Details Recorded Time COVID-19 961407088 Active 2024 Not Available [facility] 5 15:02:17 Asthenia 46140992 Active 2024 Not Available [facility] 14:08:30 Hyperlipidemi a 63552166 Active 2024 Not Available [facility] 14:10:23 Backache 284503680 Active 2024 Not Available [facility] 14:11:16 Chronic diastolic heart failure 916947371 Active 2024 Not Available [facility] 14:11:25 Implantation procedure Active 2024 Not Available [facility] 14:12:39 Peripheral vascular disease 201917258 Active 2024 Not Available [facility] 14:13:20 Fall Active 2024 Not Available [facility] 11:39:03 Muscle weakness 37464248 Active 2024 Not Available [facility] 11:38:12 Incoordinatio n 464915687 Active 2024 Not Available [facility] 11:39:01 Difficulty walking 785079614 Active 2024 Not Available [facility] 11:39:00 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 Medical Equipment None Reported. Allergies Allergen ID Allergen Name Allergen Category Reaction Reaction Severity Criticality Documentation Date Start Date Code Code System Note Provider Name and Address Organization Details Recorded Time 62998 gabapenti n medicatio n Not available Not available Not available 11/05/20242024 23592 RxNorm Not Available [facility] 14:13:22 10391 doxycycli ne Not available Not available Not available Not available 11/05/20242024 3640 RxNorm Not Available [facility] 14:14:04 Medications Name Sig Start Date Stop Date Status Note LastModified by Organization Details LastModified Time carisoprodo l 350 mg tablet Give 1 tablet by mouth two times a day for 2 Days 11/08 completed Not Available Not Available Not Available atorvastati n 40 mg tablet Give 40 mg by mouth at bedtime for Hyperlipi demia 2024 active Not Available Not Available Not Avai lable Proventil 2.5 mg/3 mL (0.083 %) solution for nebulizatio n 1 vial inhale orally via nebulizer every 4 hours as needed for wheezing/ SOB AND 1 vial inhale orally via nebulizer four times a day 2024 active Not Available Not Available Not Avai lable Children's Aspirin 81 mg chewable tablet Give 1 tablet by mouth one time a day Monitor for bleeding, bruising, and black tarry stools 2024 active Not Available Not Available Not Avai lable furosemide 20 mg tablet Give 3 tablet by mouth one time a day 2024 active Not Available Not Available Not Avai lable Laxative (sennosides ) 8.6 mg tablet Give 1 tablet by mouth every 24 hours as needed for Constipat ion 2024 active Not Available Not Available Not Avai lable Stef-600 600 mg (as calcium carbonate 1,500 mg) tablet Give 1 tablet by mouth one time a day 2024 active Not Available Not Available Not Avai lable Mucinex 600 mg tablet, extended release Give 1 tablet by mouth every 12 hours for 7 Days Take with plenty of water. Do not crush. 11/13 completed Not Available Not Available Not Available Afeditab CR 30 mg tablet,exte nded release Give 1 tablet by mouth one time a day 2024 active Not Available Not Available Not Avai lable oxycodone 10 mg tablet Give 10 mg by mouth two times a day for pain hold for lethargy 2024 active Not Available Not Available Not Avai lable D3-2000 50 mcg (2,000 unit) capsule Give 1 tablet by mouth one time a day 2024 active Not Available Not Available Not Avai lable sodium phosphates 19 gram-7 gram/197 mL enema Insert 1 unit rectally every 24 hours as needed for Constipat ion Use only if Bisacodyl Supposito ry is ineffecti ve 2024 active Not Available Not Available Not Avai lable OxyContin 20 mg tablet,anna h resistant,e xtended release Give 20 mg by mouth every 12 hours for pain 2024 active Not Available Not Available Not Avai lable OneLAX Bisacodyl 10 mg rectal suppository Insert 1 supposito ry rectally every 24 hours as needed for constipat ion Use if Senna is Ineffecti ve 2024 active Not Available Not Available Not Avai lable Vitals Date Recorded Body weight Heart rate Respiratory rate Body temperature Oxygen saturation Systolic And Diastolic Provider Name and Address Organization Details Last Updated DateTime 5 81348.5 3 g 65 /min 16 /min 97 [degF] 98 % 140/74 mm[Hg] LYNNETTE HAYES, CLINIC [facility] [address] [facility], [facility] [address], [place], [address], [facility] 5 14:32:33 Social History None recorded. Functional Status None recorded. Mental Status None recorded. Family History Nothing Reported. Medical History No medical history recorded. Gynecological HistoryNo gynecological history recorded. Obstetrics History GPAL:G 0 P 0 0 0 0 Immunizations Vaccine Type Date Status Note Provider Nam e and Address Organization Details Recorded Time Tdap 2 completed Brian Marie [facility] 11/06/2024 13:48:33 Pneumococcal conjugate PCV 13 6 completed Brian Marie [facility] 11/06/2024 13:48:50 Pneumococcal conjugate PCV 13 8 completed Brian Marie [facility] 11/06/2024 13:48:56 influenza, unspecified formulation 9 completed Brian Marie [facility] 11/06/2024 13:49:10 influenza, unspecified formulation 1 completed Brian Marie [facility] 11/06/2024 13:49:14 influenza, unspecified formulation 2 completed Brian Marie [facility] 11/06/2024 13:49:19 influenza, unspecified formulation 4 completed Brian Cynthia [facility], [facility] 11/06/2024 13:49:23 SARS-COV-2 (COVID-19) vaccine, UNSPECIFIED 1 completed Brian Cynthia [facility], [facility] 11/06/2024 13:49:34 SARS-COV-2 (COVID-19) vaccine, UNSPECIFIED 1 completed Brian Marie [facility], [facility] 11/06/2024 13:49:38 SARS-COV-2 (COVID-19) vaccine, UNSPECIFIED 2 completed Brian AlfredoAlePaez [facility], [facility] 11/06/2024 13:49:42 SARS-COV-2 (COVID-19) vaccine, UNSPECIFIED 2 completed Brian Cynthia [facility], [facility] 11/06/2024 13:49:47 SARS-COV-2 (COVID-19) vaccine, UNSPECIFIED 4 completed Brian MikeyPaez [facility], [facility] 11/06/2024 13:49:53 Past Encounters Encounter ID Performer Location Encounter Start Date Encounter Closed Date Diagnosis/Indication Diagnosis SNOMED-CT Code Diagnosis ICD10 Code Diagnosis IMO Codes Diagnosis Note [id number] DOLORES MCCALL [facility] [place] [address] 11/06/2024 09:28:04 11/12/2024 10:01:33 COVID-19 075876360 U07.1 needed O2 in the ED, then weaned to RAreceived IVF, decadron, nebz, and paxlovidco ntinue paxlovid (ends (11/10)cont inue nebz prnmuccine x bid x 7 daysmonito r resp status Asthenia 18490737 R53.1 00082 deconditio shea in the setting of covidresid es at ALFadmit to PT OTmonitor progress Hyperlipidemia 69789684 E78.5 hold statin while on paxlovidca n resume lipitor 40 mg daily on 11/11lipids outptaspir in 81 g daily Backache 307144887 M54.9 h/o osteoporos is and prior vertebral fracturesc ontinue home regimenOxy Contin 20 mg bidoxycodo ne 10 mg q6h prnSomamon itor pain Chronic di astolic heart failure 491029900 I50.32 not in acute exacerbati oncontinue lasix 60 mg daily Peripheral vascular disease 055117917 I73.9 added to PMH History of fall 19972606 9 Z91.81 3744199 [facility] negfall precaution sadmit to PT OT Complete atrioventricular block 39161335 I44.2 96792 sp pacerf/up december 10 [place] [id number] Frederick Maher MD [facility] [address] [place] [address] 11/08/2024 09:33:58 11/20/2024 12:57:40 COVID-19 260473768 U07.1 continue paxlovid (ends (11/10)cont inue nebz prnmuccine x bid x 7 daysmonito r resp statushold statins in the interim Asthenia 18557598 R53.1 46543 deconditio shea in the setting of covidresid es at ALFadmit to PT OTmonitor progress History of fall 75928369 9 Z91.81 1931670 fell at [facility], CT negfall precaution srequestin g riser Backache 145855847 M54.9 h/o osteoporos is and prior vertebral fracturesc ontinue home regimenOxy Contin 20 mg bidoxycodo ne 10 mg q6h prnSomamon itor pain Chronic di astolic heart failure 137439315 I50.32 h/o CHB on PPM placemnt, on bASA/diure ticcompens ated with estiimated at current dry weightcont inue lasix 60 mg daily Peripheral vascular disease 072132863 I73.9 added to PMHon nifedipine 30mg daily (and as needed) Complete atrioventricular block 54560898 I44.2 21612 sp pacerf/up december 10 in device clinicmoni tor HR Mixed hyperlipidemia 267 500056 E78.2 16032 hold statin while on paxlovidca n resume lipitor 40 mg daily on 11/11aspiri n 81 g daily Not for resuscitation 30 9250035 Z66 057922 transfer to acute if needed Drug therapy finding 309 167340 Z79.891 11646051 restart outpatient refimen: schedule 10mg at 1100 and 1500 aside from 20mg bid and as needed [id number] LYNNETTE HAYES, NORA [address] [place] [address] 11/12/2024 12:36:12 11/20/2024 13:00:15 COVID-19 620762744 U07.1 improvingT reated with paxlovid (ends (11/10)kristie tor resp statusresu me lipitor 40 mg daily Asthenia 51597017 R53.1 47036 improving with PT and OTdecondit ioned in the setting of covidresid es at [facility] e PT OTmonitor progress History of fall 33945530 9 Z91.81 7900245 fell at [facility] injuries, CT negfall precaution srequestin g riserPT and OT for strength, safety and gait training. Drug therapy finding 309 562535 Z79.891 34153440 restart outpatient regimen: oxycodone schedule 10mg at 1100 and 1500 aside from oxycontin 20mg bid and as needed Backache 423101013 M54.9 h/o osteoporos is and prior vertebral fracturesc ontinue home regimenOxy Contin 20 mg bidoxycodo ne 10 mg q6h prnSomamon itor pain Chronic di astolic heart failure 999538766 I50.32 h/o CHB on PPM placemnt, on bASA/diure ticcompens ated with estiimated at current dry weightcont inue lasix 60 mg daily Peripheral vascular disease 930271160 I73.9 added to PMHon nifedipine 30mg daily (and as needed) Complete atrioventricular block 92662201 I44.2 93947 sp pacerf/up december 10 in device clinicmoni tor HR Mixed hyperlipidemia 267 660642 E78.2 38995 hold statin while on paxlovidre sume lipitor 40 mg dailyaspir in 81 g daily Not for resuscitation 30 8252374 Z66 620445 transfer to acute if needed [id number] STEPHANIE VAZQUEZ, TELEGRAPH EDITOR-C [address] [place] [address] 11/15/2024 12:56:03 11/20/2024 12:54:13 Asthenia 51073013 R53.1 61179 improving with PT and OTdecondit ioned in the setting of covidresid es at [facility] e PT OTlikely dc next week Backache 326802688 M54.9 h/o osteoporos is and prior vertebral fracturesp ain well controlled on current regimencon tinue home regimenOxy Contin 20 mg bidoxycodo ne 10 mg q6h prnSomamon itor pain Chronic di astolic heart failure 682961852 I50.32 euvolemic on exammonito r wts and labscontin ue lasix 60 mg daily Mixed hyperlipidemia 267 614705 E78.2 68616 statin was on hold while on plavixresu me lipitor 40 mg dailyaspir in 81 g daily Health Concerns Section Related Observation LastModified by Organization Detai ls LastModified Time None Recorded Concern Status LastModified by Organization Details LastModified Time None Recorded Advance Directives Directive None Recorded Payers Insurance Date Sequence Insurance Name Policy Number Policy Gutierrez Covered Member ID Gutierrez Member ID Guarantor Name 11/12/2024 1 [place]: [email or web address] Maryjane A Marilee [id number] Maryjane Colleton 11/25/2024 2 [facility] [employer] (INDEMNITY) [id number] Maryjane Colleton [id number] Maryjane Marilee Notes Date Note Type Note Provider Name and Address Organization Details Recorded Time 11/06/2024 text/html Pt is an 84 yo female being seen today for initial intake visit. Patient presented to the hospital with generalized weakness/tiredness as well as a fall at the assisted living facility. CT head was neg with no acute inuries from the fall. She was found to have covid and received paxlovid, nebz, decadron, and IVF replacement. She remained on RA. Once stable she was seen by PT with recs for STR before returning to her SNF. Patient seen today. Being admitted to PT OT services. No acute concerns at this time.PMH PVD, HLD, CHF STEPHANIE VAZQUEZ, KERMIT-C [address], [address], [place], [address], [facility] 11/07/2024 08:46:06 11/08/2024 text/html Pt is an 84 yo female being seen today for initial intake visit. Patient presented to the hospital with generalized weakness/tiredness as well as a fall at the assisted living facility. CT head was neg with no acute injuries from the fall.[facility], HLD, CHF Frederick Maher MD [address], [address], [place], [address], [facility] [employer] 11/08/2024 10:12:06 11/12/2024 text/html Pt is an 84 yo female being seen today for acute rounding visit. Patient was admitted here for rehab after acute hospitalization.Sh guilherme presented to the hospital with generalized weakness/tiredness as well as a fall at the assisted living facility. She was being treated from acute Covid (receiving Paxlovid). She was requiring oxygen intermittently.Hos p course complicated by delirium likely precipitated by systemic steroids/environme nt. She is admitted to [facility] further Re[facility] on 11/03/[address] secondary [address] head was neg with no acute injuries from the fall. On exam today, patient was doing physical therapy, stating that she feels ok, denies joint pain or dizziness. She is off the oxygen, not requiring oxygen with ambulation. Pt reports she is eating well, no concerns related to elimination.[facility], DIEGOD, CHF LYNNETTE HAYES CNP [address], [address], [place], [address], [facility] [employer] 11/12/2024 14:59:48 11/15/2024 text/html Pt is an 84 yo female being seen today for acute rounding visit. Patient presented to the hospital with generalized weakness/tiredness as well as a fall at the assisted living facility. CT head was neg with no acute injuries from the fall. She was found to have covid and received paxlovid, nebz, decadron, and IVF replacement. She remained on RA. Once stable she was seen by PT with recs for STR before returning to her [facility]. Patient seen today. Her pain has been well controlled on current regimen. She will likely dc home with services some time next week. I saw pt today and she tells me her pain is good because she isnt doing much,. The nurse from the [facility] was here today to assess her. Pt thought she was leaving today but we explained it will be at the start of the week. She was ok with this and mehul was updated.PMH PVD, HLD, CHF STEPHANIE VAZQUEZ, TELEGRAPH EDITOR-C [address], [address], [place], [address], [facility] - [employer] 11/15/2024 13:05:07 OBGyn Episode No OBEpisode recorded.
--- OUTSIDE RECORDS SUMMARY | 2025-07-08 14:57 | XMS_ITS | Clinical Summary ---
Author Organization [facility] Address [address] [place] [address] Care Team Providers Care Application Release Manager Name Role Phone Mary Snatana Primary Care Provider [phone] Allergies Active Allergy Reactions Criticality Noted Date [...] (Females,Ages 65 and older) 2003 RSV Vaccine 50 years and older and Patients (1 - 1-dose 75+ series) 2013 Influenza Vaccine 02/21/2025 04/18/2024, , 05/09/2022, Additional history exists COVID-19 Vaccine (2024- season) 2025 04/18/2024, 05/09/2022, 08/10/2021, Additional history exists Hepatitis B Vaccines Aged Out No long er eligible based on patient's age to complete this topic Insurance MEDICARE PART A & B [facility] BLUE CROSS MEDIBLUE MGD MEDICARE Care Teams Application Release Manager Relationship Specialty Start Date End Date Mary Santana PA [address] [place] [phone] PCP - General General Medicine 12/06/24
--- OUTSIDE RECORDS SUMMARY | 2025-07-08 14:58 | XMS_ITS | Patient Health Record ---
Author Organization [facility] Address [address] [facility] [address] Care Team Providers Care Banking Officer Name Role Phone Mary Santana Primary Care Provider Hasmukh Duarte Unavailable [phone] Allergies Allergen (clinical drug ingredient) Drug/Non Drug [...] Status Risk Notes Problem Acquired hallux rigidus (5481739) Hallux rigidus, left foot (M20.22) Active confirmed Problem Acquired hammer toe of left foot (4229285696754 103) Other hammer toe(s) (acquired), left foot (M20.42) Active confirmed Plan Of Treatment Pending Test Test Name Order Date X ray : Foot, left 3V 10/27/2023 X ray : Foot, right 3V 10/27/2023 Insurance Providers Payer Name Payer Address Payer Phone Subscriber Number Group Number Insured Name Patient Relationship to Insured Coverage Start Date Coverage End Date Medicare [facility] [address] [place] [address] [id number] Maryjane Hunt Self - patient is the insured [employer] [facility] [address] [place] [address] [id number] Maryjane Hunt Self - patient is the [...]
== END 2025-07-08 12:49 | disposition home or self-care (01) ==
LOC: HO.HPHYS 11:20
PROVIDERS: PCP Physician Assistant Medical; Visit Provider Physical Medicine & Rehabilitation
DX: G56.03 Carpal tunnel syndrome, bilateral upper limbs (principal); M54.16 Radiculopathy, lumbar region; M48.062 Spinal stenosis, lumbar region with neurogenic claudication; G89.4 Chronic pain syndrome; Z79.891 Long term (current) use of opiate analgesic
CPT/HCPCS: 99214; G2211

== ENCOUNTER → 2025-07-08 11:20 | Outpatient (BNVA) | payer MEDICARE, OTHER, SELFPAY | PROVIDERS: PCP Physician Assistant Medical; Visit Provider Physical Medicine & Rehabilitation | DX: G56.03 Carpal tunnel syndrome, bilateral upper limbs (principal); M48.062 Spinal stenosis, lumbar region with neurogenic claudication; G89.4 Chronic pain syndrome; Z79.891 Long term (current) use of opiate analgesic | CPT/HCPCS: 99212 ==